=== PATIENT | male | born 1960 | race Caucasian/White ===

== ENCOUNTER 2016-11-02 10:48 | Inpatient (IN) | payer OTHER, MEDICAID ==
[~2016-11-02] VITALS: Ht 180.3 cm; Wt 76.7 kg
[2016-11-02] MEDS ORDERED: VITA250L PO (11:05)
[2016-11-02] MEDS ORDERED: AMLO5CAP2 PO (11:05)
[2016-11-02] MEDS ORDERED: VITA100T2 PO (11:05)
--- NOTE | 2016-11-02 11:18 | REP ---
CHEST, PORTABLE: AP portable view of the chest is performed and compared to prior study of 02/24/2005. There is infiltrate in the left lower lobe. The right lung appears clear. Heart is not enlarged. There is calcification of the thoracic aorta. The mediastinal silhouette is otherwise unremarkable. IMPRESSION: Left lower lobe infiltrate. Signed by Amadeo Lozano MD 11/02/2016 05:12 P
[2016-11-02] MEDS ORDERED: methylPREDNISolone INJ 125 MG/2 ML VIAL (J2930) IV ONE (11:30)
[2016-11-02] MEDS ORDERED: cefTRIAXone SOD 1 GM in D5W MINI-BAG PLUS 50 ML IV ONE (11:30)
[2016-11-02] MEDS ORDERED: AZITHROMYCIN INJ 500 MG, VIAL MATE ADAPTER 1 EACH in D5W 250 ML IV ONE (11:30)
[2016-11-02] MEDS: IPRATROPIUM 0.5MG/ALBUTEROL 2.5MG INH SOL UD 3ML (DUONEB)(J7620) NEB SCH ×3 (11:57→19:34)
[2016-11-02 12:00] LABS: ABG pH (ARTERIAL) 7.458 UNITS (7.350-7.450)
[2016-11-02] MEDS ORDERED: OXAZEPAM 10 MG CAP PO ONE (12:00)
[2016-11-02 12:01] LABS: ABG BASE EXCESS -2.7 (-2.0-2.0); ABG HCO3 20.1 MEQ/L (22.0-26.0); ABG PARTIAL PRESSURE O2 69.9 mmHg (75.0-100.0); ABG STANDARD HCO3 22.1 MEQ/L (22.0-26.0)
[2016-11-02 12:24] LABS: ANION GAP 11 MEQ/L (8-16); BLOOD UREA NITROGEN 28 MG/DL (7-18); CALCIUM LEVEL 8.3 MG/DL (8.5-10.1); CARBON DIOXIDE LEVEL 24 MEQ/L (21-32); CHLORIDE LEVEL 88 MEQ/L (98-107); CREATININE FOR GFR 1.14 MG/DL (0.70-1.30); GLOMERULAR FILTRATION RATE > 60.0 (>56); GLUCOSE, FASTING 81 MG/DL (70-105); SODIUM LEVEL 123 MEQ/L (136-145)
[2016-11-02] MEDS ORDERED: B121000T PO (12:30)
[2016-11-02 12:36] LABS: MEAN CORPUSCULAR HEMOGLOBIN 34.5 pg (27.0-33.0); MEAN CORPUSCULAR HGB CONC 34.7 g/dl (32.0-36.5); MEAN CORPUSCULAR VOLUME 99.3 fl (80.0-96.0); PLATELET COUNT, AUTOMATED 252 k/mm3 (150-450); WHITE BLOOD COUNT 7.6 K/mm3 (4.0-10.0)
[2016-11-02 12:43] LABS: ALBUMIN 2.1 GM/DL (3.2-5.2); ALBUMIN/GLOBULIN RATIO 0.46 (1.00-1.93); BILIRUBIN,DIRECT 0.1 MG/DL (0.0-0.2); BILIRUBIN,TOTAL 0.5 MG/DL (0.2-1.0); TOTAL PROTEIN 6.7 GM/DL (6.4-8.2)
[2016-11-02] MEDS ORDERED: SODIUM CHLORIDE 0.9% 1000 ML IV ONE (13:15)
[2016-11-02 13:18] LABS: ANISOCYTOSIS 1+; BANDS 18 % (< 11); POIKILOCYTOSIS 1+
[2016-11-02] MEDS ORDERED: NS 1,000 ML IV SCH ×2 (13:55→21:00)
[2016-11-02] MEDS ORDERED: ACETAMINOPHEN TAB 650MG DOSE (2X325MG) PO PRN (14:00)
[2016-11-02] MEDS ORDERED: ONDANSETRON 4MG/2ML VIAL (J2405) IV PRN (14:00)
[2016-11-02] MEDS ORDERED: BISACODYL 5 MG TAB PO PRN (14:00)
[2016-11-02] MEDS ORDERED: LORazepam 2 MG/ML VIAL (J2060) IV PRN (14:15)
[2016-11-02] MEDS ORDERED: OXAZEPAM 10 MG CAP PO SCH ×2 (14:15→21:00)
[2016-11-02] MEDS ORDERED: IPRATROPIUM 0.5MG/ALBUTEROL 2.5MG INH SOL UD 3ML (DUONEB)(J7620) NEB PRN (14:30)
[2016-11-02] MEDS ORDERED: MULTIVITAMIN -ADULT INJECTION 10 ML, THIAMINE INJection 100 MG, FOLIC ACID 1 MG in NS 1... IV ONE (15:00)
[2016-11-02] MEDS ORDERED: MAG SULF 1GM/100ML (MAG RUN) 1 GM in APPROPRIATE DILUENT 1 EA IV ONE (16:30)
[2016-11-02 16:43] VITALS: BP 135/70
--- NOTE | 2016-11-02 17:25 | HPE ---
DATE OF ADMISSION: 11/02/2016 PRIMARY CARE PROVIDER: HERNAN Jones CHIEF COMPLAINT: Shortness of breath. HISTORY OF PRESENT ILLNESS: Mr. Martinez is a 56-year-old male with multiple medical history, who presented to the emergency room due to experiencing shortness of breath for the past week. At baseline, the patient has chronic cough with clear sputum production, however, the patient expressed that his cough has increased for the past week with more production of sputum; however, the color of the sputum has not changed. The patient expressed that he felt warm; however, the patient did not take his temperature. The patient had chills and night sweats. The patient denies having sick contacts. The patient has a long history of alcohol abuse and smoking tobacco. The patient also expressed that he has lost his appetite. The patient also expressed that he has had one episode of lightheadedness and dizziness when he stands up from a sitting position; however, the patient denies a history of falls. The patient also denies chest pain, palpitations, racing or skipping heartbeat; however, the patient expressed that he has upper quadrant abdominal pain, secondary to coughing exacerbation. The patient denies seizure type activity or losing of consciousness. At home, the patient is on oxygen or using breathing treatments. ALLERGIES: No known drug allergies. HOME MEDICATIONS: - B12 1000 mcg by mouth in the morning - amlodipine besylate 520 mg one tablet by mouth at night - thiamine HCL 100 mg by mouth at night PAST MEDICAL HISTORY: 1. Essential hypertension. 2. Chronic plaque psoriasis. 3. 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 Initially treated by Dr. Sheets, Dr. Garcia in 2012. The patient has declined physical therapy (PT). 4. Decreased hearing. Has been referred for hearing evaluation, refused. 5. Abnormal liver functions. Liver ultrasound was on 06/20/2014, which was negative. 6. History of tick bite in January 2014, titer negative. SURGICAL HISTORY: 1. Right shoulder repair in 2001. 2. Skin graft and right hand repair in 2001. 3. Colonoscopy by Dr. Torres, three to six polyps of descending colon, repeat in three years and due in 2018. 4. Returned fragments of tubular adenoma on 06/15/2014. FAMILY HISTORY: The patient has three brothers and four sisters. The patient also has two half brothers. The patient does not know about their health; however, the patient expressed that his mother has been diagnosed with hypertension, diabetes mellitus type 2 and alive. The patient's father is still alive and has benign hypertension, diabetes mellitus type 2. SOCIAL HISTORY: The patient is and lives with his and children. The patient has been drinking alcohol for a long time, since his 30s. The patient expressed that he used to drink about a 12-pack per day; however, he has been cut off to a 6-pack per day. The patient smokes about one pack per day since his 20s. Also, the patient has smoked marijuana. According to his son, he used to smoke every day; however, he has been cutting down. The patient has not traveled outside of the [place]. REVIEW OF SYSTEMS: GENERAL: The patient denies taking his temperature; however, the patient felt warm. The patient also had chills and night sweats. The patient denies weight loss or weight gain. HEENT: The patient denies acute vision or hearing changes. The patient has lightheadedness and some dizziness. The patient denies problem with chewing food or sinusitis. NECK: The patient has no decreased range of motion of his neck. HEART: The patient denies chest pain, palpitations, or skipping heartbeat. LUNGS: The patient expressed that he has been experiencing dyspnea. The patient has productive cough with clear sputum at baseline; however, the patient expressed that his cough has been increased for the past week with increased sputum production. ABDOMEN: The patient expressed that he has mild increase of abdominal pain bilaterally upper abdominal quadrants, possibly secondary to cough exacerbation. The patient denies nausea, vomiting, diarrhea or constipation, melena, hematochezia or hemoptysis. NEUROLOGIC: The patient has a history of transient ischemic attack and seizure type activity. PHYSICAL EXAMINATION: VITAL SIGNS: Temperature 99.5, pulse 117, respiratory rate 22, blood pressure 120/60, pulse oximetry 89% on room air. GENERAL APPEARANCE: The patient was lying in bed in no acute distress. The patient was awake, alert and oriented to time, place and person. HEENT: Normocephalic, atraumatic. Pupils are equal and reactive to light. Oral mucosa is moist. NECK: Supple. No lymphadenopathy. No thyromegaly. No jugular venous distention (JVD). HEART: Tachycardia. Normal S1, S2. ABDOMEN: Soft, nontender to palpation. Positive bowel sounds in all quadrants. LUNG: Patient has rales as well as rhonchi bilaterally at the base of the lung. EXTREMITIES: No lower extremity edema. Normal range of motion in both upper and lower extremities, as well as normal strength in both lower extremities (5/5). NEUROLOGIC: Cranial nerves II through XII intact. No focal deficiencies. LABORATORY DATA: White blood cells 7.6, red blood cells 3.38, hemoglobin 9.7, hematocrit 33.6, MCV 99.3, MCH 34.5, MCHC 34.7, RDW 13, platelet count 252. Neutrophil percentage 77, band neutrophils 18, lymphocytes 2, monocytes 3, platelet estimate normal. Blood gas: Bicarbonate standard is 22.1. ABG showed pH 7.458, ABG PCO2 29, ABG PO2 69.9, ABG HDL3 20.1, ABG total CO2 21, ABG oxygen saturation 93.6, ABG base excess -2.7. Sodium 123, potassium 5, chloride 88, carbon dioxide 24 anion gap 11, BUN 28, creatinine 1.14, GFR more than 60, fasting glucose 81, lactic acid 1.8, calcium 8.3, magnesium 1.6, total creatinine 83, CK-MB 1.2, troponin I less than 0.2, BNP 145, total protein 6.7, albumin 2.1. Blood culture pending. IMAGING: Chest x-ray shows left lower lobe infiltration. ASSESSMENT AND PLAN: 1. Dyspnea. This is possibly secondary to community-acquired pneumonia. The patient is started on azithromycin and Rocephin. We have also ordered sputum gram and culture. Due to hyponatremia, I also ordered Legionella antigen in the urine, as well as urine Streptococcus pneumoniae, result is pending at this time. Also, we will continue the patient on oxygen with the goal of 88 to 92% and breathing treatments due to the long history of smoking. At this time, the patient is stable. 2. History of alcohol abuse. The patient has a long history of alcohol abuse. The patient's last drink was last night. At this time, we have started the patient on banana bag. Also, we will continue the patient on folic acid, thiamine, B12. Also, we will start the patient on Ativan 1 mg intravenous every 1 hour as needed for agitation and withdrawal. The patient is also on IV fluid. 3. Hyponatremia. This is possibly hypovolemic hyponatremia secondary to alcohol abuse. The patient is on IV fluid. We will continue the patient on gentle IV fluid. Also, we will continue sodium level every four hours. 4. Tachycardia. This is possibly secondary to dehydration. The patient is on IV fluids. We will continue monitoring the patient's heart rate. No medication is required at this time. 5. Hypertension. At home, the patient is on amlodipine/Benaz 520 mg one tablet by mouth daily. However, at this time, we have held this medication due to hypotension. We will continue to monitor the patient for any abnormal symptoms. 6. Deep vein thrombosis (DVT) prophylaxis. The patient is on Lovenox. 7. Transaminitis. The patient has elevated AST; however, his alkaline phosphatase is in normal range. The patient had the liver ultrasound in 2014, which based on the primary care note was negative. At this time, we will continue monitoring the patient for any abnormal symptoms. 8. Macrocytic anemia: This is possibly secondary to alcohol abuse. At this time patient received one banana bag. Also we'll continue patient on folic acid, thiamine and vitamin B12. My preceptor for this patient encounter was Dr. Todd. The preceptor was physically present in the building during the encounter and was fully available. As needed, all aspects of the patient interview, examination, medical decision making process, and medical care plan development were reviewed and approved by the preceptor. The preceptor is aware and concurs with the plan as stated in the body of this note and will attest to such by his/her cosignature. I have seen and examined the above patient and agree with the plan as documented above. SKIP
[2016-11-02 17:50] LABS: ANION GAP 11 MEQ/L (8-16); BLOOD UREA NITROGEN 26 MG/DL (7-18); CARBON DIOXIDE LEVEL 26 MEQ/L (21-32); CHLORIDE LEVEL 90 MEQ/L (98-107); CREATININE FOR GFR 1.12 MG/DL (0.70-1.30); GLOMERULAR FILTRATION RATE > 60.0 (>56); GLUCOSE, FASTING 166 MG/DL (70-105); POTASSIUM SERUM 4.2 MEQ/L (3.5-5.1); SODIUM LEVEL 127 MEQ/L (136-145)
[2016-11-02] MEDS: ENOXAPARIN 40 MG/0.4 ML SYRINGE (J1650) SC SCH (18:13)
--- NOTE | 2016-11-02 18:17 | ECGEPIP ---
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
[2016-11-02 20:03] LABS: ANION GAP 8 MEQ/L (8-16); BLOOD UREA NITROGEN 27 MG/DL (7-18); CALCIUM LEVEL 8.2 MG/DL (8.5-10.1); CARBON DIOXIDE LEVEL 23 MEQ/L (21-32); CHLORIDE LEVEL 90 MEQ/L (98-107); CREATININE FOR GFR 1.11 MG/DL (0.70-1.30); GLOMERULAR FILTRATION RATE > 60.0 (>56); GLUCOSE, FASTING 238 MG/DL (70-105); POTASSIUM SERUM 4.2 MEQ/L (3.5-5.1); SODIUM LEVEL 121 MEQ/L (136-145)
[2016-11-02] MEDS: methylPREDNISolone INJ 125 MG/2 ML VIAL (J2930) IV SCH (20:34)
[2016-11-02] MEDS ORDERED: THIAMINE 100 MG TAB PO SCH (21:00)
[2016-11-02 22:00] VITALS: BP 142/69
[2016-11-03 00:31] LABS: ANION GAP 10 MEQ/L (8-16); BLOOD UREA NITROGEN 29 MG/DL (7-18); CALCIUM LEVEL 8.2 MG/DL (8.5-10.1); CARBON DIOXIDE LEVEL 26 MEQ/L (21-32); CHLORIDE LEVEL 92 MEQ/L (98-107); CREATININE FOR GFR 1.04 MG/DL (0.70-1.30); GLOMERULAR FILTRATION RATE > 60.0 (>56); GLUCOSE, FASTING 179 MG/DL (70-105); POTASSIUM SERUM 4.6 MEQ/L (3.5-5.1); SODIUM LEVEL 128 MEQ/L (136-145)
[2016-11-03] MEDS: IPRATROPIUM 0.5MG/ALBUTEROL 2.5MG INH SOL UD 3ML (DUONEB)(J7620) NEB SCH ×4 (01:25→20:02)
[2016-11-03] MEDS: methylPREDNISolone INJ 125 MG/2 ML VIAL (J2930) IV SCH ×3 (04:25→20:09)
[2016-11-03 06:00] VITALS: BP 134/76
[2016-11-03 06:29] LABS: BASO % 0.1 % (0.0-1.0); EOS % 0.2 % (0.0-3.0); LARGE UNSTAINED CELL # 0.1 K/mm3 (0.0-0.4); LARGE UNSTAINED CELL % 0.4 % (0.0-4.0); LYMPH # 0.2 K/mm3 (1.5-4.5); LYMPH % 1.8 % (24.0-44.0); MEAN CORPUSCULAR HEMOGLOBIN 34.6 pg (27.0-33.0); MEAN CORPUSCULAR HGB CONC 34.2 g/dl (32.0-36.5); MEAN CORPUSCULAR VOLUME 101.2 fl (80.0-96.0); MONO # 0.1 K/mm3 (0.0-0.8); MONO % 1.2 % (0.0-5.0); NEUTROPHILS # 10.2 K/mm3 (1.8-7.7); NEUTROPHILS % 96.2 % (36.0-66.0); PLATELET COUNT, AUTOMATED 244 k/mm3 (150-450); RED CELL DISTRIBUTION WIDTH 12.9 % (11.5-14.5); WHITE BLOOD COUNT 10.6 K/mm3 (4.0-10.0)
[2016-11-03 06:40] LABS: ALBUMIN 1.8 GM/DL (3.2-5.2); ALBUMIN/GLOBULIN RATIO 0.39 (1.00-1.93); ALKALINE PHOSPHATASE 84 U/L (45-117); ALT/SGPT 37 U/L (12-78); ANION GAP 9 MEQ/L (8-16); AST/SGOT 57 U/L (15-37); BILIRUBIN,TOTAL 0.3 MG/DL (0.2-1.0); BLOOD UREA NITROGEN 29 MG/DL (7-18); CALCIUM LEVEL 8.5 MG/DL (8.5-10.1); CARBON DIOXIDE LEVEL 25 MEQ/L (21-32); CHLORIDE LEVEL 95 MEQ/L (98-107); CREATININE FOR GFR 0.85 MG/DL (0.70-1.30); GLOMERULAR FILTRATION RATE > 60.0 (>56); GLUCOSE, FASTING 126 MG/DL (70-105); MAGNESIUM LEVEL 2.3 MG/DL (1.8-2.4); POTASSIUM SERUM 4.4 MEQ/L (3.5-5.1); SODIUM LEVEL 129 MEQ/L (136-145); TOTAL PROTEIN 6.4 GM/DL (6.4-8.2)
[2016-11-03] MEDS: CYANOCOBALAMIN 500 MCG TAB PO SCH (08:38)
[2016-11-03] MEDS: FOLIC ACID 1 MG TAB PO SCH (08:38)
[2016-11-03] MEDS: AZITHROMYCIN INJ 500 MG, VIAL MATE ADAPTER 1 EACH in D5W 250 ML IV SCH (10:30)
[2016-11-03] MEDS ORDERED: AVEL1TAB PO (11:40)
[2016-11-03] MEDS: cefTRIAXone SOD 2 GM in D5W MINI-BAG PLUS 50 ML IV SCH (11:52)
[2016-11-03] MEDS ORDERED: VANCOMYCIN HCL 1,000 MG in D5W 0 ML IV SCH (13:15)
[2016-11-03 14:00] VITALS: BP 124/69
[2016-11-03] MEDS ORDERED: VANCOMYCIN HCL 500 MG in D5W MINI-BAG PLUS 100 ML IV SCH (14:15)
[2016-11-03] MEDS: VANCOMYCIN HCL 1,000 MG, VIAL MATE ADAPTER 1 EACH in D5W 250 ML IV SCH ×2 (14:21→22:11)
[2016-11-03] MEDS ORDERED: VANCOMYCIN HCL 500 MG in D5W MINI-BAG PLUS 100 ML IV ONE (15:00)
[2016-11-03 15:08] VITALS: BP 130/66
[2016-11-03] MEDS: NS 1,000 ML IV SCH (15:26)
--- NOTE | 2016-11-03 16:24 | IPN ---
DATE: 11/03/2016 Patient seen and examined at the bedside. Chart has been reviewed. He still complains of cough productive of white sputum, some shortness of breath with inhalation, improved from yesterday. No fevers or chills overnight. No nausea, vomiting, epigastric pain, chest pain, pressure, or tightness, lightheadedness, dizziness, near syncope. VITAL SIGNS: Temperature 98.3, pulse 70, respiratory rate 18, blood pressure 134/76, 91% on room air. General: Awake, alert, oriented times three, answering questions appropriately. No jugular venous distention, thyromegaly. Anicteric sclerae. Pupils equally round and reactive to light and accommodation. No icterus. No use of respiratory accessory muscles. Lying in bed in no acute distress, awake, alert, oriented times three to person, place, and time. Neck has no jugular venous distention. Heart: S1, S2, sinus rhythm. No murmurs, rubs, or gallops. Lungs: Diminished breath sounds with coarse wheezing bilaterally. Abdomen is Soft, nontender, nondistended. Positive bowel sounds. Extremities: No cyanosis, clubbing, or pitting edema. LABORATORY DATA: White count 10.3, hemoglobin 11, hematocrit 33, platelet count 244. Sodium 129, potassium 4.4, chloride 95, bicarbonate 25, BUN 29, creatinine 0.85, glucose of 126. Chest x-ray on November 02: Left lower lobe infiltrate. ASSESSMENT AND PLAN: This is a 56-year-old male with history of hypertension, chronic plaque psoriasis, posttraumatic muscle contractions following injury involving the right-hand finger and wrist, treated by Dr. Sheets, decreased hearing, referred for hearing evaluation, refused, abnormal liver function tests with liver ultrasound 06/20/2014 negative, history of tick bite January 2014, titer negative, colonic polyps of descending colon with tubular adenoma. He presented to the emergency room with complaints of shortness of breath, found to have left lower lobe infiltrate, admitted to community acquired pneumonia. Current issues right now: 1. Left lower lobe pneumonia. Patient currently is on intravenous (IV) ceftriaxone, azithromycin. He is currently saturating 91-92% on room air, 96% on 2 liters nasal cannula. He was previously 89% on room air with ambulation on admission. Patient's white count was normal at 7.6, currently increased to 10.6 but clinically doing well. Has no respiratory distress or use of respiratory accessory muscles. He did receive one dose of Solu-Medrol yesterday, held to 25 mg, which could explain slight elevation in the white count. 2. History of essential hypertension, on chronic Norvasc. Continue the same. 3. Chronic plaque psoriasis, stable. 4. B12 deficiency Continue B12 at 1 mg every morning. 5. Abnormal liver function tests with normal liver ultrasound. 6. History of colonic polyps three years ago with tubular adenoma in 2015. Repeat colonoscopy in 2018. 7. History of heavy alcohol abuse. Last drink was last night. Monitor for delirium tremens (DTs) and folic acid, B12, and thiamine. Ativan as needed for agitation and withdrawal. 8. Hyponatremia, hypovolemic hyponatremic, most likely secondary to alcohol abuse. Gentle hydration with improvement, 129, with no mental status changes, headaches, or seizure activity. Discharge plans are for the morning.
--- NOTE | 2016-11-03 17:11 | PHACANCOPD ---
PHARMACY VANCOMYCIN DOSING Pt Demographics Demographics Patient Age:56 , Weight:74.600 , Gender: male Adjusted Body Weight Date: 11/03/16, Adjusted Body Weight: Kg Events Past 24 Hours Events Past 24 Hours: NO: Dialysis, Diuretic Therapy, Change in CrCl, Fever, Elevation in WBC, Pending Diagnostics, Pending Procedures, Other Vancomycin Vancomycin indication: SEPSIS Vancomycin Target Ranges: 15-20 mcg/ml Vancomycin Load Y/N: Yes Load Dose Date Time Vancomycin Load Dose: 1500MG Date: 11/03 Time: 1400 Vancomycin Dose Date: 11/03/16. Current Vancomycin Dose: [1000MG IV Q8H @ 2200] Intermittent Dosing?: No Labs Labs Item Value Date Time Creatinine 1.11 MG/DL 11/02/16 1933 Creatinine 1.04 MG/DL 11/02/16 2343 Creatinine 0.85 MG/DL 11/03/16 0558 White Blood Count 7.6 K/mm3 11/02/16 1136 White Blood Count 10.6 K/mm3 H 11/03/16 0558 Micro Microbiology 11/03/16 Blood Culture, Received Pending 11/03/16 Blood Culture, Received Pending 11/02/16 Blood Culture - Preliminary, Resulted 11/02/16 Blood Culture - Preliminary, Resulted 11/03/16 MRSA Screen, Received Pending 11/02/16 Influenza Virus Type A Antigen - Final, Complete 11/02/16 Influenza Virus Type B Antigen - Final, Complete 11/02/16 Gram Stain - Final, Resulted 11/02/16 Sputum Culture, Resulted Pending Creatinine Clearance Date:11/03/16. Creatinine Clearance: [100MLS/MIN]. Pending Labs VANCO TROUGH 11/04 @ 1300 Assessment and Plan Maintaining Current Dose?: Yes Reason for dose change: No Dose Change Pharmacist Note Pharmacist Note Date: 11/03/16. Pharmacist note: Vancomycin 1500mg loading dose was started @ 1400 followed by 1 gram 8h. Trough is scheduled to be drawn prior to the 4th dose (11/04 @ 1300). Blood cultures are currently pending. Continue current dosing and adjust per renal function. AKIN MULLEN PHARMACY Nov 03, 2016 17:11
[2016-11-03] MEDS: ENOXAPARIN 40 MG/0.4 ML SYRINGE (J1650) SC SCH (17:53)
[2016-11-03] MEDS: THIAMINE 100 MG TAB PO SCH (20:08)
[2016-11-03 22:00] VITALS: BP 157/74
[2016-11-04] MEDS: IPRATROPIUM 0.5MG/ALBUTEROL 2.5MG INH SOL UD 3ML (DUONEB)(J7620) NEB SCH ×4 (01:54→20:03)
[2016-11-04] MEDS: NS 1,000 ML IV SCH ×3 (04:15→20:12)
[2016-11-04] MEDS: methylPREDNISolone INJ 125 MG/2 ML VIAL (J2930) IV SCH ×3 (04:15→20:12)
[2016-11-04] MEDS: VANCOMYCIN HCL 1,000 MG, VIAL MATE ADAPTER 1 EACH in D5W 250 ML IV SCH ×3 (05:39→22:21)
[2016-11-04 06:00] VITALS: BP 157/66
[2016-11-04 06:44] LABS: BASO % 0.1 % (0.0-1.0); EOS % 0.3 % (0.0-3.0); LARGE UNSTAINED CELL # 0.1 K/mm3 (0.0-0.4); LARGE UNSTAINED CELL % 0.6 % (0.0-4.0); LYMPH # 0.3 K/mm3 (1.5-4.5); LYMPH % 1.9 % (24.0-44.0); MEAN CORPUSCULAR HGB CONC 33.1 g/dl (32.0-36.5); MEAN CORPUSCULAR VOLUME 102.7 fl (80.0-96.0); MONO # 0.3 K/mm3 (0.0-0.8); MONO % 2.2 % (0.0-5.0); NEUTROPHILS # 10.9 K/mm3 (1.8-7.7); PLATELET COUNT, AUTOMATED 278 k/mm3 (150-450); RED CELL DISTRIBUTION WIDTH 13.3 % (11.5-14.5); WHITE BLOOD COUNT 11.4 K/mm3 (4.0-10.0)
[2016-11-04 07:08] LABS: ALBUMIN 1.7 GM/DL (3.2-5.2); ALBUMIN/GLOBULIN RATIO 0.36 (1.00-1.93); ALKALINE PHOSPHATASE 96 U/L (45-117); ALT/SGPT 38 U/L (12-78); ANION GAP 7 MEQ/L (8-16); AST/SGOT 50 U/L (15-37); BILIRUBIN,TOTAL 0.2 MG/DL (0.2-1.0); BLOOD UREA NITROGEN 32 MG/DL (7-18); CALCIUM LEVEL 8.5 MG/DL (8.5-10.1); CARBON DIOXIDE LEVEL 24 MEQ/L (21-32); CHLORIDE LEVEL 95 MEQ/L (98-107); CREATININE FOR GFR 0.75 MG/DL (0.70-1.30); GLOMERULAR FILTRATION RATE > 60.0 (>56); GLUCOSE, FASTING 147 MG/DL (70-105); MAGNESIUM LEVEL 2.2 MG/DL (1.8-2.4); SODIUM LEVEL 126 MEQ/L (136-145); TOTAL PROTEIN 6.4 GM/DL (6.4-8.2)
[2016-11-04] MEDS: FOLIC ACID 1 MG TAB PO SCH (09:09)
[2016-11-04] MEDS: CYANOCOBALAMIN 500 MCG TAB PO SCH (09:09)
[2016-11-04] MEDS: AZITHROMYCIN INJ 500 MG, VIAL MATE ADAPTER 1 EACH in D5W 250 ML IV SCH (11:15)
[2016-11-04] MEDS: cefTRIAXone SOD 2 GM in D5W MINI-BAG PLUS 50 ML IV SCH (11:16)
--- NOTE | 2016-11-04 14:11 | PHACANCOPD ---
PHARMACY VANCOMYCIN DOSING Pt Demographics Demographics Patient Age:56 , Weight:74.400 , Gender: male Adjusted Body Weight Date: 11/03/16, Adjusted Body Weight: Kg Events Past 24 Hours Events Past 24 Hours: NO: Dialysis, Diuretic Therapy, Change in CrCl, Fever, Elevation in WBC, Pending Diagnostics, Pending Procedures, Other Vancomycin Vancomycin indication: SEPSIS Vancomycin Target Ranges: 15-20 mcg/ml Vancomycin Load Y/N: Yes Load Dose Date Time Vancomycin Load Dose: 1500MG Date: 11/03 Time: 1400 Vancomycin Dose Date: 11/04/16. Current Vancomycin Dose: [1000mg IV q8h@14] Date: 11/03/16. Current Vancomycin Dose: [1000MG IV Q8H @ 2200] Intermittent Dosing?: No Labs Labs Item Value Date Time White Blood Count 10.6 K/mm3 H 11/03/16 0558 White Blood Count 11.4 K/mm3 H 11/04/16 0556 Creatinine 0.75 MG/DL 11/04/16 0556 Vancomycin Level Trough 15.1 UG/ML 11/04/16 1305 Vital Signs Label Value Date Time Patient Temperature 98.7 degrees F 11/03/16 2200 Temperature Source Temporal 11/03/16 2200 Patient Temperature 98.0 degrees F 11/04/16 0600 Temperature Source Temporal 11/04/16 0600 Micro Microbiology 11/03/16 Blood Culture - Preliminary, Resulted No growth after 24 hours . All specim... 11/03/16 Blood Culture - Preliminary, Resulted No growth after 24 hours . All specim... 11/02/16 Blood Culture - Preliminary, Resulted 11/02/16 Blood Culture - Preliminary, Resulted 11/03/16 MRSA Screen, Received Pending 11/02/16 Influenza Virus Type A Antigen - Final, Complete 11/02/16 Influenza Virus Type B Antigen - Final, Complete 11/02/16 Gram Stain - Final, Resulted 11/02/16 Sputum Culture - Preliminary, Resulted Streptococcus Pneumoniae Yeast Like Organism Creatinine Clearance Date:11/03/16. Creatinine Clearance: [100MLS/MIN]. Pending Labs VANCO TROUGH 11/04 @ 1300 Assessment and Plan Maintaining Current Dose?: Yes Reason for dose change: No Dose Change Pharmacist Note Pharmacist Note 11/04: Patient's trough came back at 15.1 today. He is currently being treated for Pneumonia. Currently he has 2 sets of blood cultures showing preliminary gram positive cocci in pairs and sputum preliminary grew strep. pneumoniae and yeast like organism. The physician has ordered a second set of blood cultures and a MRSA screen. His trough is within target range so we will continue Vancomycin 1gm IV q8h for now. He has no history of MRSA or Vancomycin use at our facility. He is afebrile and WBC is slightly elevated. We will continue to monitor and make adjustments as necessary. Date: 11/03/16. Pharmacist note: Vancomycin 1500mg loading dose was started @ 1400 followed by 1 gram 8h. Trough is scheduled to be drawn prior to the 4th dose (11/04 @ 1300). Blood cultures are currently pending. Continue current dosing and adjust per renal function. GILMA SPARKS PHARMACY Nov 04, 2016 14:11
[2016-11-04] MEDS: ENOXAPARIN 40 MG/0.4 ML SYRINGE (J1650) SC SCH (17:41)
[2016-11-04] MEDS: THIAMINE 100 MG TAB PO SCH (20:11)
[2016-11-04 22:00] VITALS: BP 156/73
[2016-11-05] MEDS: IPRATROPIUM 0.5MG/ALBUTEROL 2.5MG INH SOL UD 3ML (DUONEB)(J7620) NEB SCH ×2 (01:36→07:51)
[2016-11-05] MEDS: methylPREDNISolone INJ 125 MG/2 ML VIAL (J2930) IV SCH (04:14)
[2016-11-05] MEDS: VANCOMYCIN HCL 1,000 MG, VIAL MATE ADAPTER 1 EACH in D5W 250 ML IV SCH (05:34)
[2016-11-05 06:00] VITALS: BP 153/74
[2016-11-05 06:40] LABS: BASO % 0.4 % (0.0-1.0); EOS % 0.1 % (0.0-3.0); LARGE UNSTAINED CELL # 0.1 K/mm3 (0.0-0.4); LARGE UNSTAINED CELL % 1.5 % (0.0-4.0); LYMPH # 0.3 K/mm3 (1.5-4.5); LYMPH % 4.1 % (24.0-44.0); MEAN CORPUSCULAR HEMOGLOBIN 34.2 pg (27.0-33.0); MEAN CORPUSCULAR HGB CONC 34.1 g/dl (32.0-36.5); MEAN CORPUSCULAR VOLUME 100.3 fl (80.0-96.0); MONO # 0.2 K/mm3 (0.0-0.8); MONO % 3.4 % (0.0-5.0); NEUTROPHILS # 6.2 K/mm3 (1.8-7.7); NEUTROPHILS % 90.4 % (36.0-66.0); PLATELET COUNT, AUTOMATED 292 k/mm3 (150-450); RED CELL DISTRIBUTION WIDTH 13.3 % (11.5-14.5); WHITE BLOOD COUNT 6.9 K/mm3 (4.0-10.0)
[2016-11-05 06:55] LABS: ALBUMIN 1.7 GM/DL (3.2-5.2); ALBUMIN/GLOBULIN RATIO 0.44 (1.00-1.93); ALKALINE PHOSPHATASE 69 U/L (45-117); ALT/SGPT 50 U/L (12-78); ANION GAP 7 MEQ/L (8-16); AST/SGOT 51 U/L (15-37); BILIRUBIN,TOTAL 0.2 MG/DL (0.2-1.0); BLOOD UREA NITROGEN 22 MG/DL (7-18); CALCIUM LEVEL 8.2 MG/DL (8.5-10.1); CARBON DIOXIDE LEVEL 25 MEQ/L (21-32); CHLORIDE LEVEL 97 MEQ/L (98-107); CREATININE FOR GFR 0.71 MG/DL (0.70-1.30); GLOMERULAR FILTRATION RATE > 60.0 (>56); GLUCOSE, FASTING 138 MG/DL (70-105); MAGNESIUM LEVEL 2.1 MG/DL (1.8-2.4); POTASSIUM SERUM 4.1 MEQ/L (3.5-5.1); SODIUM LEVEL 129 MEQ/L (136-145); TOTAL PROTEIN 5.6 GM/DL (6.4-8.2)
[2016-11-05] MEDS ORDERED: MOXIFLOXACIN 400 MG TAB PO ONE (07:00)
[2016-11-05] MEDS ORDERED: AVEL1TAB PO (07:01)
[2016-11-05] MEDS: NS 1,000 ML IV SCH (07:30)
[2016-11-05] MEDS ORDERED: FUROSEMIDE 100 MG/10 ML VIAL (J1940) IV ONE (08:15)
[2016-11-05] MEDS: CYANOCOBALAMIN 500 MCG TAB PO SCH (08:50)
[2016-11-05] MEDS: FOLIC ACID 1 MG TAB PO SCH (08:50)
--- NOTE | 2016-11-05 14:14 | IPN ---
DATE: 11/04/2016 Patient seen and examined at the bedside. Chart has been reviewed. Afebrile overnight. Patient was given vancomycin due to gram positive cocci found in the blood culture. Sputum culture is streptococcus pneumonia. Patient admits to having snorted recreational drugs about a week ago. Temperature 98, pulse 68, respiratory rate 19, blood pressure 157/66, 94% on room air. Lungs are clear to auscultation. No wheezing, rales or rhonchi. Some diminished breath sounds and crackles at the left base. Heart S1 and S2, sinus rhythm. Abdomen is soft, nontender, nondistended. Normoactive bowel sounds. Extremities no cyanosis, clubbing or pitting edema. ASSESSMENT/PLAN: This is a 56-year-old male with history of recreational drug use by inhaling recreational drugs about a week ago, chronic plaque psoriasis, hypertension, post traumatic muscle contractions, abnormal liver function tests, history of tick bite, history of colonic tubular adenoma who presented with shortness of breath admitted for community acquired pneumonia and left lower lobe infiltrate. CURRENT ISSUES: 1. Left lower lobe pneumonia with streptococcus pneumonia, yeast like organism, sputum culture, currently on ceftriaxone. Azithromycin until finalized. 2. Gram positive blood bacteremia. Rule out endocarditis especially with recreational drug use which was inhaled last week. Will obtain 2D echo. If negative, continue treatment with vancomycin until species has been defined. 3. Chronic plaque psoriasis, stable. 4. B12 deficiency. 5. Abnormal liver function tests. Normal ultrasound. 6. Colonic polyps. 7. Tubular adenoma. Repeat colonoscopy 2018. 8. History of alcohol abuse. Last drink two nights ago. 9. Hyponatremia secondary to alcohol use. Gentle hydration. No mental status changes. Currently at 126.
[2016-11-06 00:07] LABS: ORGANISM ID Not indicated. (.); SPECIMEN SOURCE Urine (.)
[2016-11-06] MEDS ORDERED: MOXIFLOXACIN 400 MG TAB PO SCH (06:00)
--- NOTE | 2016-11-06 10:16 | DSES ---
DATE OF ADMISSION: 11/02/2016 DATE OF DISCHARGE: 11/05/2016 PRIMARY CARE PROVIDER: Gerri Estrella. PRIMARY DISCHARGE DIAGNOSES: 1. Left lower lobe community-acquired pneumonia. 2. Recent recreational drug use via inhalation. 3. Streptococcus pneumoniae. 4. Bacteremia, mostly likely secondary to pneumonia. 5. Hyponatremia most likely secondary to chronic alcohol abuse. 6. Chronic alcohol abuse. DISCHARGE MEDICATIONS: - Avelox 400 mg daily to complete nine more days as outpatient - Norvasc one capsule every evening - B12 1000 mcg every evening - thiamine 100 mg every evening HOSPITAL COURSE: This is a 56-year-old male with history of chronic alcohol abuse, hypertension, chronic plaque psoriasis, post-traumatic muscle contractions following injury of right hand, finger and wrist, decreased hearing, normal liver function test with liver ultrasound being negative in 2014, history of tick bite 2013, titer negative, colonic polyps descending colon with tubular adenoma, who presented to the emergency room with complaints of shortness of breath. Was found to have left lower lobe infiltrate on chest x-ray, admitted for community-acquired. Was started on ceftriaxone and azithromycin, was previously 89% on room air with ambulation on admission, saturating 91-96% on room air. The patient was given intravenous (IV) Solu-Medrol with slight elevation in white count. Blood cultures obtained showed gram-positive cocci; therefore, the patient was given two days of vancomycin until cultures returned with Streptococcus pneumoniae. Both sputum and blood culture grew out Streptococcus pneumoniae. Therefore, thought to be transient bacteremia from the patient's pneumonia. Repeat blood cultures on 11/03 showed no growth after 24 hours. Methicillin-resistant Staphylococcus aureus (MRSA) screen was negative. Echocardiogram ordered but could not be performed prior to discharge. The patient is stable for discharge. He remained afebrile with no white count. Discharge WBC of 6.9. He did have episode of hyponatremia with admission sodium of 123, thought to be secondary to chronic alcohol abuse, with discharge sodium level of 129 after fluid hydration. Input and output showed a weight gain from 71 kg to 76.7 kg. The patient was given one dose of Lasix prior to discharge. LABORATORIES ON DISCHARGE: White count 6.9, hemoglobin 10, hematocrit 30, platelet count 292. Sodium 129, potassium 4, chloride 97, bicarbonate 7, BUN 22, creatinine 0.71, glucose 138, lactic acid of 1.9, calcium 8.2, magnesium of 2.1. MICROBIOLOGY: Blood cultures Streptococcus pneumoniae 11/02/2016. Repeat blood culture on 11/03 no growth after 24 hours. 11/02 sputum culture was Streptococcus pneumoniae, streptococcus group G and yeastlike organism. IMAGING: Chest x-ray showed left lower lobe infiltrate. TIME SPENT ON DISCHARGE: 40 minutes.
== END 2016-11-05 11:23 | disposition home or self-care (01) | DRG 194 ==
LOC: EDBD 10:48 → M ED 11:58 → M ED INP 15:30 → M MSPAV 16:24
PROVIDERS: ADMIT Hospitalist; ATTEND General Practice
DX: J13 Pneumonia due to Streptococcus pneumoniae (principal); E87.1 Hypo-osmolality and hyponatremia; R78.81 Bacteremia; I10 Essential (primary) hypertension; L40.0 Psoriasis vulgaris; H49.9 Unspecified paralytic strabismus; H91.90 Unspecified hearing loss, unspecified ear; F17.210 Nicotine dependence, cigarettes, uncomplicated; F10.10 Alcohol abuse, uncomplicated; E86.0 Dehydration; R00.0 Tachycardia, unspecified; R74.0 Nonspecific elevation of levels of transaminase and lactic acid dehydrogenase [LDH]; D53.9 Nutritional anemia, unspecified; Z79.899 Other long term (current) drug therapy; Z86.010 Personal history of colon polyps

== ENCOUNTER → 2016-11-23 | Outpatient (CLI) | payer OTHER, MEDICAID ==
[~2016-11-23] MED LIST: AMLO5CAP2 PO; AVEL1TAB3 PO; B121000T PO; VITA100T2 PO; VITA250L PO
--- NOTE | 2016-11-23 11:52 | REP ---
Clinical: Follow up pneumonia. Technique: PA and lateral. Comparison: 11/02/2016. Findings: Continued left lower lobe consolidation/partial collapse with moderate pleural effusion. Right hemithorax is clear. Mediastinum and cardiac silhouette normal. No pneumothorax. Skeletal structures stable. Impression: Continued evidence for left lower lobe consolidation/partial collapse and pleural effusion. Signed by Олег Cardoza MD 11/23/2016 11:44 A
--- NOTE | 2016-11-23 19:51 | ECHO ---
DATE OF PROCEDURE: 11/23/2016 AGE: 56 GENDER: Male HEIGHT: 70 inches WEIGHT: 153 pounds BODY SURFACE AREA: 1.86 m2. PATIENT LOCATION: Outpatient. REFERRING PHYSICIAN: Gerri Estrella NP INDICATION: Essential hypertension. 2D MEASUREMENTS RV: 3.8 cm LV: 4.0 cm Septum: 0.9 cm Posterior wall: 0.9 cm Aortic root: 3.3 cm LA: 3.0 cm LVEF: 75% DOPPLER MEASUREMENTS: AV: 1.5 m/s LVOT: 0/9 m/s LVOT diameter: 2.2 cm MV-E: 75, A: 74, EA ratio: 1 Early mitral deceleration time: 246 ms E prime: 8.8, A prime: 13, E/E prime ratio: 8.5 PV: 0.8 m/s PA acceleration time: 130 ms RVSP: 28 mmHg IVC: 1.2 cm COMMENTS: Normal sinus rhythm without intraventricular conduction disturbance. Normal cardiac chamber sizes and wall thickness. On real-time imaging from the parasternal and apical projections wall motion was symmetrical and hyperkinetic. Normal-appearing mitral valvular apparatus and leaflet excursion with no posterior systolic buckling. Three equal size aortic cusps with marginally thickened cusp edges, but adequate cusp separation. Normal aortic root size. Somewhat prominent moderator band in the right ventricle, but otherwise no intracardiac mass or pericardial effusion. Color flow Doppler study taken from the parasternal and apical projection showed trace aortic and trace tricuspid, but normal mitral insufficiency. Guided continuous wave Doppler of his aortic valve showed a normal peak systolic velocity against left ventricle (LV) outflow tract obstruction. Pulsed and continuous wave Doppler of his LV inflow tract taken from the apical four-chamber projection showed normal diastolic filling velocities against mitral stenosis. There was a normal filling pattern, but a prolonged early mitral deceleration time and tissue Doppler suggesting a degree of impaired LV diastolic function, but currently normal estimated mean left atrial pressure. Pulsed and continuous wave Doppler of his pulmonary trunk showed a normal peak systolic velocity against right ventricle (RV) outflow tract obstruction. His pulmonary artery acceleration time was normal against an elevated pulmonary vascular resistance. Guided continuous wave Doppler of his tricuspid valve allowed our estimation of his right ventricular systolic pressure (upper limits of normal). Normal inferior vena cava (IVC) size and collapse against an elevated central venous pressure. CONCLUSIONS: Normal left ventricular size, wall thickness and hyperkinetic wall motion. Normal left atrial size with Doppler signs of an impairment of LV diastolic relaxation but currently normal estimated mean left atrial pressure. Normal right heart chamber sizes and contraction with normal estimated pulmonary arterial pressure. Normal IVC size and collapse against an elevated central venous pressure. Subtle aortic valvular sclerosis without stenosis and only trace insufficiency. Normal aortic root size.
== END ==
LOC: M CARPUL 11:29
PROVIDERS: ATTEND Nurse Practitioner Adult Health
DX: I10 Essential (primary) hypertension (principal)

== ENCOUNTER → 2016-12-15 | Outpatient (CLI) | payer OTHER, MEDICAID ==
[~2016-12-15] MED LIST changes: +ISOVUE-370 76% 100ML VIAL (Q9967) As Ordered ONE
--- NOTE | 2016-12-16 03:08 | REP ---
Clinical: Streptococcal pneumonia. Technique: Axial contrast enhanced images from the thoracic inlet to the upper abdomen using 100 ml Isovue 370 intravenous contrast material with coronal and sagittal re-formations. Findings: Moderate left lower lobe consolidation with air bronchograms and associated moderate pleural effusion is consistent with the given history of streptococcal pneumonia. Small focus of infiltrate/chronic change also identified in the basilar right middle lobe. Remainder of the lung thurston are well-aerated and clear. Tracheobronchial tree is patent. No significant adenopathy. Mediastinum demonstrates mild atherosclerotic changes to the thoracic aorta and coronary arteries guide aortic aneurysm or cardiomegaly. No pericardial effusion. Musculoskeletal structures are intact. Limited evaluation of the upper abdomen demonstrates normal bilateral adrenal glands and subcentimeter left renal cyst. Impression: Left lower lobe consolidation and pleural effusion along with possible small acute/chronic right middle lobe infiltrate requires followup to resolution. Signed by Олег Cardoza MD 12/16/2016 02:59 A
== END ==
LOC: M RAD 16:26
PROVIDERS: ATTEND Nurse Practitioner Adult Health
DX: J15.4 Pneumonia due to other streptococci (principal); J90 Pleural effusion, not elsewhere classified; J98.4 Other disorders of lung
CPT/HCPCS: 71260; Q9967

== ENCOUNTER → 2017-02-03 | Outpatient (REF) | payer OTHER, MEDICAID ==
[~2017-02-03] MED LIST changes: -ISOVUE-370 76% 100ML VIAL (Q9967) As Ordered ONE
[2017-02-03 16:14] LABS: VITAMIN B12 LEVEL 458 PG/ML (247-911)
[2017-02-03 16:15] LABS: ALBUMIN 3.8 GM/DL (3.2-5.2); ALKALINE PHOSPHATASE 77 U/L (45-117); ALT/SGPT 30 U/L (12-78); ANION GAP 6 MEQ/L (8-16); AST/SGOT 46 U/L (15-37); BILIRUBIN,TOTAL 0.5 MG/DL (0.2-1.0); BLOOD UREA NITROGEN 10 MG/DL (7-18); CALCIUM LEVEL 9.1 MG/DL (8.5-10.1); CARBON DIOXIDE LEVEL 31 MEQ/L (21-32); CHLORIDE LEVEL 97 MEQ/L (98-107); CHOLESTEROL LEVEL 193 MG/DL (<200); CREATININE FOR GFR 0.77 MG/DL (0.70-1.30); GLOMERULAR FILTRATION RATE > 60.0 (>56); GLUCOSE, FASTING 87 MG/DL (70-105); POTASSIUM SERUM 4.6 MEQ/L (3.5-5.1); SODIUM LEVEL 134 MEQ/L (136-145); TRIGLYCERIDES LEVEL 41 MG/DL (<150)
[2017-02-03 18:57] LABS: MEAN CORPUSCULAR HEMOGLOBIN 34.4 pg (27.0-33.0); MEAN CORPUSCULAR HGB CONC 33.9 g/dl (32.0-36.5); MEAN CORPUSCULAR VOLUME 101.5 fl (80.0-96.0); RED CELL DISTRIBUTION WIDTH 14.4 % (11.5-14.5); WHITE BLOOD COUNT 4.4 K/mm3 (4.0-10.0)
== END ==
LOC: M SFHCPLAZ 14:05
PROVIDERS: ATTEND Nurse Practitioner Adult Health
DX: Z00.00 Encounter for general adult medical examination without abnormal findings (principal); D64.9 Anemia, unspecified; E87.1 Hypo-osmolality and hyponatremia

== ENCOUNTER 2017-08-05 06:44 | Day surgery (SDC) | payer OTHER, MEDICAID ==
[2017-08-05] MEDS ORDERED: LIDOCAINE 2% INJ 100 MG/5 ML SYRINGE As Ordered (07:02)
[2017-08-05] MEDS ORDERED: PROPOFOL 200 MG/20 ML VIAL As Ordered ×2 (07:02→07:42)
[2017-08-05] MEDS: NS 500 ML IV (07:07)
== END 2017-08-05 08:28 | disposition home or self-care (01) ==
LOC: M OPP 06:44
DX: Z12.11 Encounter for screening for malignant neoplasm of colon (principal); N40.0 Benign prostatic hyperplasia without lower urinary tract symptoms; I10 Essential (primary) hypertension; J44.9 Chronic obstructive pulmonary disease, unspecified; G47.30 Sleep apnea, unspecified; F17.210 Nicotine dependence, cigarettes, uncomplicated; M19.90 Unspecified osteoarthritis, unspecified site; Z79.899 Other long term (current) drug therapy; Z86.010 Personal history of colon polyps; Z98.890 Other specified postprocedural states
CPT/HCPCS: 45378

== ENCOUNTER → 2018-02-17 | Outpatient (REF) | payer OTHER, MEDICAID ==
[2018-02-17 18:01] LABS: HEMATOCRIT 37.3 % (42.0-52.0); HEMOGLOBIN 13.2 g/dl (13.5-17.5); MEAN CORPUSCULAR HEMOGLOBIN 34.3 pg (27.0-33.0); MEAN CORPUSCULAR HGB CONC 35.4 g/dl (32.0-36.5); MEAN CORPUSCULAR VOLUME 96.9 fl (80.0-96.0); PLATELET COUNT, AUTOMATED 162 10^3/uL (150-450); RED BLOOD COUNT 3.85 10^6/uL (4.30-6.10); RED CELL DISTRIBUTION WIDTH 13.1 % (11.5-14.5); WHITE BLOOD COUNT 2.4 10^3/uL (4.0-10.0)
[2018-02-17 18:32] LABS: ALBUMIN 3.6 GM/DL (3.2-5.2); ALBUMIN/GLOBULIN RATIO 0.88 (1.00-1.93); ALKALINE PHOSPHATASE 94 U/L (45-117); ALT/SGPT 46 U/L (12-78); ANION GAP 11 MEQ/L (8-16); AST/SGOT 95 U/L (7-37); BILIRUBIN,TOTAL 0.3 MG/DL (0.2-1.0); BLOOD UREA NITROGEN 6 MG/DL (7-18); CALCIUM LEVEL 8.8 MG/DL (8.5-10.1); CARBON DIOXIDE LEVEL 23 MEQ/L (21-32); CHLORIDE LEVEL 104 MEQ/L (98-107); CREATININE FOR GFR 0.62 MG/DL (0.70-1.30); GLOMERULAR FILTRATION RATE > 60.0 (>56); GLUCOSE, FASTING 69 MG/DL (70-100); POTASSIUM SERUM 3.9 MEQ/L (3.5-5.1); SODIUM LEVEL 138 MEQ/L (136-145); TOTAL PROTEIN 7.7 GM/DL (6.4-8.2)
== END ==
LOC: M SFHCPLAZ 16:12
DX: Z00.00 Encounter for general adult medical examination without abnormal findings (principal); D64.9 Anemia, unspecified

== ENCOUNTER → 2019-02-21 | Outpatient (REF) | payer OTHER, MEDICAID ==
[~2019-02-21] MED LIST changes: -AMLO5CAP2 PO; +AMLO5CAP44 PO; -VITA100T2 PO; +VITA100T8 PO
[2019-02-21 14:10] LABS: ALBUMIN 3.3 GM/DL (3.2-5.2); ALT/SGPT 31 U/L (12-78); BILIRUBIN,TOTAL 0.3 MG/DL (0.2-1.0); BLOOD UREA NITROGEN 7 MG/DL (7-18); CALCIUM LEVEL 8.8 MG/DL (8.8-10.2); CARBON DIOXIDE LEVEL 29 MEQ/L (21-32); CHLORIDE LEVEL 97 MEQ/L (98-107); CREATININE FOR GFR 0.77 MG/DL (0.70-1.30); GLOMERULAR FILTRATION RATE > 60.0 (>49); GLUCOSE, FASTING 78 MG/DL (70-100); POTASSIUM SERUM 3.7 MEQ/L (3.5-5.1); SODIUM LEVEL 134 MEQ/L (136-145); TOTAL PROTEIN 7.3 GM/DL (6.4-8.2)
[2019-02-21 14:13] LABS: HEMATOCRIT 36.2 % (42.0-52.0); HEMOGLOBIN 12.5 g/dl (13.5-17.5); MEAN CORPUSCULAR HEMOGLOBIN 33.9 pg (27.0-33.0); MEAN CORPUSCULAR HGB CONC 34.5 g/dl (32.0-36.5); MEAN CORPUSCULAR VOLUME 98.1 fl (80.0-96.0); PLATELET COUNT, AUTOMATED 189 10^3/uL (150-450); RED BLOOD COUNT 3.69 10^6/uL (4.30-6.10); WHITE BLOOD COUNT 2.4 10^3/uL (4.0-10.0)
== END ==
LOC: M SFHCPLAZ 11:37
PROVIDERS: ATTEND Nurse Practitioner Adult Health
DX: Z00.00 Encounter for general adult medical examination without abnormal findings (principal); E87.1 Hypo-osmolality and hyponatremia; R74.8 Abnormal levels of other serum enzymes; D64.9 Anemia, unspecified

== ENCOUNTER → 2019-09-22 | Outpatient (CLI) | payer OTHER, MEDICAID ==
[2019-09-22 16:16] LABS: HEMATOCRIT 36.7 % (42.0-52.0); HEMOGLOBIN 12.3 g/dl (13.5-17.5); MEAN CORPUSCULAR HEMOGLOBIN 33.3 pg (27.0-33.0); MEAN CORPUSCULAR HGB CONC 33.5 g/dl (32.0-36.5); MEAN CORPUSCULAR VOLUME 99.5 fl (80.0-96.0); PLATELET COUNT, AUTOMATED 263 10^3/uL (150-450); RED BLOOD COUNT 3.69 10^6/uL (4.30-6.10); WHITE BLOOD COUNT 3.4 10^3/uL (4.0-10.0)
[2019-09-22 16:25] LABS: ALBUMIN 3.2 GM/DL (3.2-5.2); ALT/SGPT 28 U/L (12-78); BILIRUBIN,TOTAL 0.5 MG/DL (0.2-1.0); BLOOD UREA NITROGEN 10 MG/DL (7-18); CALCIUM LEVEL 9.3 MG/DL (8.8-10.2); CARBON DIOXIDE LEVEL 30 MEQ/L (21-32); CHLORIDE LEVEL 97 MEQ/L (98-107); CHOLESTEROL LEVEL 155 MG/DL (<200); CHOLESTEROL RISK RATIO 1.614 (<5); CREATININE FOR GFR 0.96 MG/DL (0.70-1.30); FERRITIN 265 NG/ML (26-388); GLOMERULAR FILTRATION RATE > 60.0 (>49); GLUCOSE, FASTING 92 MG/DL (70-100); HDL CHOLESTEROL 96 MG/DL (>40); IRON (FE) 105 UG/DL (65-175); LDL CHOLESTEROL 50 MG/DL (<100); MAGNESIUM LEVEL 2.2 MG/DL (1.8-2.4); NON-HDL-C 59 MG/DL; PERCENT SATURATION 34.1 % (19.7-50.0); POTASSIUM SERUM 4.9 MEQ/L (3.5-5.1); SODIUM LEVEL 132 MEQ/L (136-145); TOTAL IRON BINDING CAPACITY 308 UG/DL (250-450); TRIGLYCERIDES LEVEL 46 MG/DL (<150)
[2019-09-22 16:30] LABS: FOLATE 11.3 NG/ML (>5.4)
== END ==
LOC: M WUC 13:03
PROVIDERS: ATTEND Physician Assistant
DX: D64.9 Anemia, unspecified (principal); I10 Essential (primary) hypertension; R74.8 Abnormal levels of other serum enzymes; F10.10 Alcohol abuse, uncomplicated

== ENCOUNTER → 2019-10-09 | Outpatient (CLI) | payer OTHER, MEDICAID | LOC: M OUTALCOH 08:12 | PROVIDERS: ATTEND Psychiatry & Neurology Addiction Medicine | DX: Z13.9 Encounter for screening, unspecified (principal); F10.20 Alcohol dependence, uncomplicated ==

== ENCOUNTER 2019-10-17 14:04 | Outpatient (RCR) | payer OTHER, MEDICAID | END 2019-10-22 | LOC: M OUTALCOH 14:04 | PROVIDERS: ATTEND Psychiatry & Neurology Addiction Medicine | DX: F10.20 Alcohol dependence, uncomplicated (principal); F12.10 Cannabis abuse, uncomplicated; F17.200 Nicotine dependence, unspecified, uncomplicated ==

== ENCOUNTER → 2019-11-21 | Outpatient (RCR) | payer OTHER, MEDICAID | LOC: M OUTALCOH 10-23 10:25 | PROVIDERS: ATTEND Psychiatry & Neurology Addiction Medicine | DX: F10.20 Alcohol dependence, uncomplicated (principal); F12.10 Cannabis abuse, uncomplicated; F17.200 Nicotine dependence, unspecified, uncomplicated ==

== ENCOUNTER 2020-09-07 12:41 | Emergency (ER) | payer OTHER, MEDICAID ==
[~2020-09-07] VITALS: Ht 177.8 cm; Wt 65.9 kg
[2020-09-07] MEDS ORDERED: AMLO1TAB24 (12:57)
[2020-09-07] MEDS ORDERED: MAGN400T2 (12:57)
[2020-09-07] MEDS ORDERED: LISI-898 (12:57)
[2020-09-07] MEDS ORDERED: ACETAMINOPHEN 325 MG TAB PO ONE (16:10)
[2020-09-07] MEDS ORDERED: LEVALBUTEROL HFA 45MCG/ACT 15 GM INHALER INH ONE (16:10)
[2020-09-07] MEDS ORDERED: lisinopriL 5 MG TAB PO ONE (16:20)
[2020-09-07] MEDS ORDERED: amLODIPine 5 MG TAB PO ONE (16:20)
--- NOTE | 2020-09-07 17:03 | REP ---
INDICATION: pain/ infection. COMPARISON: Comparison left great toe series February 05, 2014.. TECHNIQUE: AP and lateral views of the left foot are obtained. FINDINGS: AP and lateral views of the left foot demonstrate moderate hallux valgus deformity again noted. This is unchanged. Overall mineralization pattern is normal. There is ankylosis of the PIP joint of the 2nd toe suggestive of previous surgery. There is a small plantar calcaneal spur. No soft tissue gas is seen. No acute bony erosive changes observed.. No fracture or subluxation is seen. No opaque foreign body noted. IMPRESSION: Moderate hallux valgus deformity. No acute erosive change. Plantar heel spur.. <Electronically signed by Atul Rocha > 09/07/20 [id number]
--- NOTE | 2020-09-07 17:04 | REP ---
INDICATION: infection/pain. COMPARISON: None. TECHNIQUE: Four views of the left ankle are obtained. FINDINGS: Four views of the left ankle demonstrate diffuse soft tissue swelling about the distal calf and ankle. Ankle mortise is intact. No erosive changes seen. No soft tissue gas is observed. No opaque foreign body is noted. Mild plantar and Achilles calcaneal spurring is noted. IMPRESSION: Diffuse soft tissue swelling. Heel spurs. No acute erosive changes. <Electronically signed by Atul Rocha > 09/07/20 [id number]
--- NOTE | 2020-09-07 17:05 | REP ---
INDICATION: hip pain. COMPARISON: None. TECHNIQUE: AP and frogleg views of the right hip are presented. FINDINGS: There is moderate femoral head and acetabular spurring consistent with osteoarthritis. Subcortical cyst formation is seen in the superior acetabular margin. Surgical hernia repair sutures are visible in the lower abdomen/pelvis. Vascular calcification is observed. No fracture is seen. IMPRESSION: No acute bony abnormality is seen. Moderate osteoarthritis right hip. Vascular calcification. <Electronically signed by Atul Rocha > 09/07/20 [id number]
[2020-09-07 17:19] LABS: BASO % 0.5 % (0.0-1.0); EOS # 0.2 10^3/uL (0.0-0.5); EOS % 5.6 % (0.0-3.0); HEMATOCRIT 31.6 % (42.0-52.0); LYMPH # 0.7 10^3/uL (1.5-5.0); LYMPH % 15.6 % (24.0-44.0); MEAN CORPUSCULAR HEMOGLOBIN 33.5 pg (27.0-33.0); MEAN CORPUSCULAR HGB CONC 34.8 g/dl (32.0-36.5); MEAN CORPUSCULAR VOLUME 96.3 fl (80.0-96.0); MONO # 0.7 10^3/uL (0.0-0.8); MONO % 16.8 % (2.0-8.0); NEUTROPHILS # 2.6 10^3/uL (1.5-8.5); PLATELET COUNT, AUTOMATED 226 10^3/uL (150-450); RED BLOOD COUNT 3.28 10^6/uL (4.30-6.10); WHITE BLOOD COUNT 4.3 10^3/uL (4.0-10.0)
[2020-09-07] MEDS ORDERED: NS 1,000 ML IV ONE (17:20)
[2020-09-07 17:40] LABS: ALBUMIN 3.4 GM/DL (3.2-5.2); BILIRUBIN,DIRECT 0.1 MG/DL (0.0-0.2); BILIRUBIN,TOTAL 0.8 MG/DL (0.2-1.0); TOTAL PROTEIN 7.3 GM/DL (6.4-8.2)
[2020-09-07 17:42] LABS: CK-MB VALUE MASS 3.2 NG/ML (<3.6); CPK CREATINE PHOSPHOKINASE 167 U/L (39-308); MB/CK RELATIVE INDEX 1.92 (< OR =4); TROPONIN I < 0.02 NG/ML (< 0.10)
[2020-09-07] MEDS ORDERED: DOXYCYCLINE HYCLATE 100 MG in D5W MINI-BAG PLUS 100 ML IV ONE (17:55)
[2020-09-07 17:57] VITALS: BP 166/75
[2020-09-07] MEDS ORDERED: KETOROLAC 30 MG/ML 1ML VIAL IV ONE (18:00)
[2020-09-07 18:02] LABS: HEMOGLOBIN A1c 5.3 %
[2020-09-07] MEDS ORDERED: DOXY100C37 PO (19:21)
[2020-09-07] MEDS ORDERED: BACITRACIN OINTMENT 30GM TUBE TOP ONE (19:35)
--- NOTE | 2020-09-07 20:26 | ECGEPIP ---
[facility] - ED Test Date: 2020-09-07 Pat Name: KELL JEONG Department: Room: - Gender: Male [employer]: RS : 1960 Requested By: XIOMARA Gonzalez PA-C Order Number: [id number] Reading MD: Andres Delacruz Measurements Intervals [place] Rate: 66 P: 85 NJ: 246 QRS: 71 QRSD: 100 T: 76 QT: 426 QTc: 446 Interpretive Statements Sinus rhythm with 1st degree AV block Cannot rule out Anteroseptal infarct , age undetermined Electronically Signed on 09-07-2020 20:26:11 EDT by Andres Delacruz
== END 2020-09-07 20:05 | disposition home or self-care (01) ==
LOC: M ED 12:41
DX: L03.116 Cellulitis of left lower limb (principal); M16.11 Unilateral primary osteoarthritis, right hip; E87.1 Hypo-osmolality and hyponatremia; M20.10 Hallux valgus (acquired), unspecified foot; I10 Essential (primary) hypertension; J44.9 Chronic obstructive pulmonary disease, unspecified; G47.30 Sleep apnea, unspecified; L40.9 Psoriasis, unspecified; Z79.899 Other long term (current) drug therapy; F17.210 Nicotine dependence, cigarettes, uncomplicated
CPT/HCPCS: 73502; 73610; 73620; 80047; 80076; 82550; 82553; 83036; 84484; 85025; 93005; 96361; 96365; 96366; 96375; 99284; J1885

== ENCOUNTER → 2020-10-16 | Outpatient (REF) | payer OTHER, MEDICAID ==
[~2020-10-16] MED LIST changes: +AMLO1TAB24; +DOXY100C37 PO; +LISI-898; +MAGN400T2
[2020-10-16 15:32] LABS: HEMATOCRIT 36.7 % (42.0-52.0); HEMOGLOBIN 12.9 g/dl (13.5-17.5); MEAN CORPUSCULAR HEMOGLOBIN 33.7 pg (27.0-33.0); MEAN CORPUSCULAR HGB CONC 35.1 g/dl (32.0-36.5); MEAN CORPUSCULAR VOLUME 95.8 fl (80.0-96.0); PLATELET COUNT, AUTOMATED 215 10^3/uL (150-450); RED BLOOD COUNT 3.83 10^6/uL (4.30-6.10); WHITE BLOOD COUNT 3.6 10^3/uL (4.0-10.0)
[2020-10-16 16:02] LABS: ALBUMIN 3.7 GM/DL (3.2-5.2); ALT/SGPT 40 U/L (12-78); BILIRUBIN,TOTAL 0.6 MG/DL (0.2-1.0); BLOOD UREA NITROGEN 12 MG/DL (7-18); CALCIUM LEVEL 9.1 MG/DL (8.8-10.2); CARBON DIOXIDE LEVEL 28 MEQ/L (21-32); CHLORIDE LEVEL 93 MEQ/L (98-107); CREATININE FOR GFR 0.82 MG/DL (0.70-1.30); GLOMERULAR FILTRATION RATE > 60.0 (>49); GLUCOSE, FASTING 76 MG/DL (70-100); POTASSIUM SERUM 5.1 MEQ/L (3.5-5.1); SODIUM LEVEL 129 MEQ/L (136-145); TOTAL PROTEIN 7.9 GM/DL (6.4-8.2)
[2020-10-16 16:06] LABS: PERCENT SATURATION 49.8 % (19.7-50.0); THYROID STIMULATING HORMONE 1.21 uIU/ML (0.358-3.740)
== END ==
LOC: M SFHCPLAZ 13:43
PROVIDERS: ATTEND Nurse Practitioner Adult Health
DX: E87.1 Hypo-osmolality and hyponatremia (principal)

== ENCOUNTER → 2020-11-06 | Outpatient (CLI) | payer OTHER, MEDICAID ==
--- NOTE | 2020-11-06 15:01 | REP ---
INDICATION: OTHER INTERVERTEBRAL DISC DISPLACEMENT, LUMBAR REGION. COMPARISON: None. TECHNIQUE/RADIOTRACER AND DOSE: Following the intravenous administration of 21.1mCi technetium 99 M MDP, patient's whole-body is imaged in multiple projections. FINDINGS: Mild facet arthritic uptake is seen at the L4-5 level. Mild facet arthritic uptake is also seen in the left cervical facet joints. There are 3 cup take is seen at the right acromioclavicular joint and left glenohumeral joint there also appears to be mild arthritic uptake at the wrists bilaterally, as well as the right elbow joint. There is no compelling scintigraphic evidence of osseous metastases. Renal and bladder activity are seen.. IMPRESSION: Scattered areas of arthritic uptake as discussed above. No compelling scintigraphic evidence of osseous metastases. <Electronically signed by Amadeo Lozano > 11/06/20 [id number]
== END ==
LOC: M RAD 10:00
PROVIDERS: ATTEND Physical Medicine & Rehabilitation
DX: M51.26 Other intervertebral disc displacement, lumbar region (principal)

== ENCOUNTER → 2020-11-15 | Outpatient (CLI) | payer OTHER, MEDICAID ==
[~2020-11-15] MED LIST changes: -DOXY100C37 PO; +DOXY1CAP62 PO
[2020-11-15 15:37] LABS: BLOOD UREA NITROGEN 9 MG/DL (7-18); C REACTIVE PROTEIN QUANTITATIV 0.38 MG/DL (0.00-0.30); CREATININE FOR GFR 0.68 MG/DL (0.70-1.30); GLOMERULAR FILTRATION RATE > 60.0 (>49); RHEUMATOID FACTOR QUANT < 10.0 IU/ML (<15.0)
[2020-11-18 13:08] LABS: ANTINUCLEAR ANTIBODIES DIRECT Negative (Negative)
== END ==
LOC: M PLAIMG 13:17
PROVIDERS: ATTEND Physical Medicine & Rehabilitation
DX: M51.36 Other intervertebral disc degeneration, lumbar region (principal); M16.11 Unilateral primary osteoarthritis, right hip

== ENCOUNTER → 2020-11-19 | Outpatient (CLI) | payer OTHER, MEDICAID ==
[~2020-11-19] MED LIST changes: +PROHANCE 279.3MG/ML 15ML VIAL As Ordered ONE
--- NOTE | 2020-11-19 15:59 | REPVR ---
PROCEDURE INFORMATION: Exam: MR Lumbar Spine Without and With Contrast Exam date and time: 11/19/2020 3:04 PM Age: 60 years old Clinical indication: Low back pain; Patient HX: Lbp; Additional info: Disc degeneration TECHNIQUE: Imaging protocol: Multiplanar magnetic resonance images of the lumbar spine without and with intravenous contrast. Contrast material: PROHANCE; Contrast volume: 13 ml; Contrast route: INTRAVENOUS (IV); COMPARISON: NM Bone Scan Whole Body 11/06/2020 10:30 AM FINDINGS: Vertebrae: Bone marrow signal is severely heterogeneous. This is nonspecific, but could represent red marrow reconversion, or a marrow replacement process such as metastatic disease, myeloma, or lymphoma. Bone marrow edema is present in the L5 vertebral body, extending into the bilateral L5 pedicles and superior facets. Small age-indeterminate superior and inferior endplate compression fractures are noted at L5. There is mild central L5 vertebral body height loss. Mild bone marrow edema is also present in the bilateral L4 pedicles, presumably degenerative. Enhancement is noted around the bilateral L4-L5 facets which could be due to severe degenerative facet arthropathy or infectious/septic facet arthritis. Spinal cord: The conus medullaris terminates at the L1 level. There is no evidence of arachnoiditis or cauda equina compression. L1-L2: There is mild facet arthropathy. This is causing minimal bilateral neural foraminal narrowing. There is no spinal canal stenosis. L2-L3: There is minimal diffuse circumferential disc bulging and mild facet arthropathy. There is no significant spinal canal stenosis. Mild/moderate bilateral neural foraminal narrowing is present. L3-L4: There is mild diffuse circumferential disc bulging, moderate facet arthropathy, and thickening of the ligamentum flavum. This is causing mild spinal canal stenosis and moderate bilateral neural foraminal narrowing. L4-L5: There is epidural thickening and enhancement within the posterior aspect of the canal at the L4-L5 level. Epidural phlegmon is possible. There is moderate diffuse circumferential disc bulging, severe facet arthropathy, and thickening of the ligamentum flavum. There is thickening and enhancement of the posterior epidural space, possibly due to an epidural phlegmon. Increased synovial fluid is present in the bilateral facet joints. Enhancement within and around the facet joints is noted. This could represent septic facet arthritis. There is moderate/severe spinal canal stenosis, severe narrowing of the subarticular recesses, moderate right neural foraminal narrowing, and moderate/severe left neural foraminal narrowing. L5-S1: There is moderate diffuse circumferential disc bulging and severe facet arthropathy. This is causing mild spinal canal stenosis, severe right neural foraminal narrowing, and moderate left neural foraminal narrowing. Soft tissues: Inflammation is present around the bilateral L3-L4 and L4-L5 facets. IMPRESSION: 1. Severely heterogeneous bone marrow. This is nonspecific, but could represent anemia of chronic disease, red marrow reconversion, or a marrow replacement process such as metastatic disease, myeloma, or lymphoma. 2. Acute/subacute superior and inferior endplate compression fractures at L5. 3. Possible septic facet arthritis at L4-L5. Clinical and laboratory correlation is recommended. 4. Thickening and enhancement of the posterior epidural space at the L4-L5 levels, possibly representing epidural phlegmon. Moderate/severe spinal canal stenosis is present Electronically signed by: Leonardo Arenas On 11/19/2020 15:58:39 PM
== END ==
LOC: M RAD 13:13
PROVIDERS: ATTEND Physical Medicine & Rehabilitation
DX: M51.26 Other intervertebral disc displacement, lumbar region (principal)

== ENCOUNTER → 2020-11-28 | Outpatient (CLI) | payer OTHER, MEDICAID ==
[~2020-11-28] MED LIST changes: -PROHANCE 279.3MG/ML 15ML VIAL As Ordered ONE
[2020-11-28 16:47] LABS: BASO % 0.6 % (0.0-1.0); EOS # 0.1 10^3/uL (0.0-0.5); EOS % 2.9 % (0.0-3.0); HEMATOCRIT 33.6 % (42.0-52.0); HEMOGLOBIN 11.7 g/dl (13.5-17.5); LYMPH # 0.4 10^3/uL (1.5-5.0); LYMPH % 11.4 % (24.0-44.0); MEAN CORPUSCULAR HEMOGLOBIN 33.3 pg (27.0-33.0); MEAN CORPUSCULAR HGB CONC 34.8 g/dl (32.0-36.5); MEAN CORPUSCULAR VOLUME 95.7 fl (80.0-96.0); MONO # 0.7 10^3/uL (0.0-0.8); MONO % 19.7 % (2.0-8.0); NEUTROPHILS # 2.3 10^3/uL (1.5-8.5); NEUTROPHILS % 65.4 % (36.0-66.0); PLATELET COUNT, AUTOMATED 194 10^3/uL (150-450); RED BLOOD COUNT 3.51 10^6/uL (4.30-6.10); WHITE BLOOD COUNT 3.5 10^3/uL (4.0-10.0)
[2020-11-28 17:14] LABS: ALBUMIN 3.2 GM/DL (3.2-5.2); ALT/SGPT 33 U/L (12-78); BILIRUBIN,TOTAL 0.3 MG/DL (0.2-1.0); BLOOD UREA NITROGEN 12 MG/DL (7-18); CARBON DIOXIDE LEVEL 31 MEQ/L (21-32); CHLORIDE LEVEL 94 MEQ/L (98-107); CREATININE FOR GFR 0.82 MG/DL (0.70-1.30); GLOMERULAR FILTRATION RATE > 60.0 (>49); GLUCOSE, FASTING 65 MG/DL (70-100); IRON (FE) 106 UG/DL (65-175); PERCENT SATURATION 39.3 % (19.7-50.0); POTASSIUM SERUM 4.7 MEQ/L (3.5-5.1); SODIUM LEVEL 133 MEQ/L (136-145); TOTAL IRON BINDING CAPACITY 270 UG/DL (250-450); TOTAL PROTEIN 7.1 GM/DL (6.4-8.2)
[2020-11-28 17:22] LABS: FOLATE 9.5 NG/ML; VITAMIN B12 LEVEL 331 PG/ML
[2020-11-28 21:16] LABS: ERYTHROCYTE SEDIMENTATION RATE 38 mm/hr (0-20)
== END ==
LOC: M WUC 14:00
PROVIDERS: ATTEND Internal Medicine Infectious Disease
DX: D64.9 Anemia, unspecified (principal); M51.36 Other intervertebral disc degeneration, lumbar region; R93.7 Abnormal findings on diagnostic imaging of other parts of musculoskeletal system

== ENCOUNTER → 2020-11-28 | Outpatient (CLI) | payer OTHER, MEDICAID | LOC: M WUC 14:03 | PROVIDERS: ATTEND Physical Medicine & Rehabilitation | DX: M51.26 Other intervertebral disc displacement, lumbar region (principal); M70.61 Trochanteric bursitis, right hip ==

== ENCOUNTER → 2020-12-11 | Outpatient (CLI) | payer OTHER, MEDICAID | LOC: M PLAIMG 12:36 | PROVIDERS: ATTEND Physical Medicine & Rehabilitation | DX: M70.61 Trochanteric bursitis, right hip (principal) ==

== ENCOUNTER → 2020-12-16 | Outpatient (CLI) | payer OTHER, MEDICAID ==
[~2020-12-16] MED LIST changes: +PROHANCE 279.3MG/ML 15ML VIAL As Ordered ONE
--- NOTE | 2020-12-16 11:51 | REP ---
INDICATION: TROCHANTERIC BURSITIS. COMPARISON: Comparison is made with images from bone scan November 06, 2020 as well as right hip radiographs from September 07 2020.. TECHNIQUE: Precontrast imaging includes coronal T1 and T2-weighted scans of both hips. Precontrast high-resolution smaller field of view axial, coronal and sagittal T2 fat sat images are acquired of the right hip. Intravenous contrast is administered. The contrast dose is 13 mL of intravenous ProHance. Postcontrast T1 fat sat images are acquired in all 3 planes.. FINDINGS: Cortical and medullary bone signal intensity is normal in the proximal femurs bilaterally. There is no evidence to suggest a vascular necrosis. There is however moderate to advanced femoroacetabular osteoarthritis with will well established junctional spurs on the femoral heads bilaterally, acetabular spurring, joint space narrowing, and fairly extensive bilateral subcortical cyst formation in each iliac bone superior to the acetabulum. There is a small right hip joint effusion. There is are degenerative changes in the acetabular labral cartilage is bilaterally. There is no evidence of loose body. The right ligamentum teres is not well seen. There is a small fluid collection along the iliac bone on the right superior to the joint underlying the iliacus muscle. This measures 2.2 cm in greatest diameter. No other juxta-articular cyst or mass is seen. There is a small fluid collection adjacent the greater trochanter on the right consistent with bursitis. Greater trochanteric tendon insertion site spurring is seen. Hamstring tendon insertion sites are unremarkable. Postcontrast imaging shows no significant gadolinium enhancement. IMPRESSION: Moderate to advanced bilateral hip joint osteoarthritis. Small joint effusion on the right. There are bursal fluid collections adjacent the greater trochanter and there is tendon insertion site spurring on the greater trochanter consistent with tendinitis/bursitis. No evidence to suggest septic arthropathy. <Electronically signed by Atul Rocha > 12/16/20 [id number]
== END ==
LOC: M RAD 09:42
PROVIDERS: ATTEND Physical Medicine & Rehabilitation
DX: M70.61 Trochanteric bursitis, right hip (principal)

== ENCOUNTER → 2021-01-15 | Outpatient (CLI) | payer OTHER, MEDICAID ==
[~2021-01-15] MED LIST changes: +LIDOCAINE 1% MDV 20ML VIAL As Ordered ONE; -LISI-898; +LISI-898 PO; -MAGN400T2; +MAGN400T2 PO; -PROHANCE 279.3MG/ML 15ML VIAL As Ordered ONE; +SODIUM BICARBONATE 8.4% INJ 50MEQ 50 ML VIAL As Ordered ONE
[2021-01-15 10:25] LABS: HEMATOCRIT 31.4 % (42.0-52.0); HEMOGLOBIN 11.3 g/dl (13.5-17.5); MEAN CORPUSCULAR HEMOGLOBIN 34.7 pg (27.0-33.0); MEAN CORPUSCULAR VOLUME 96.3 fl (80.0-96.0); PLATELET COUNT, AUTOMATED 206 10^3/uL (150-450); RED BLOOD COUNT 3.26 10^6/uL (4.30-6.10)
[2021-01-15 11:40] VITALS: BP 144/70
--- NOTE | 2021-01-15 15:59 | REP ---
INDICATION: ANEMIA. COMPARISON: None. TECHNIQUE: The procedure is performed by Carmen Balderas [facility], under the direct supervision of Dr. Rocha. The risks and benefits of the procedure were explained to the patient and informed consent was obtained both orally and written. Directly prior to the start of the procedure, a formal timeout was done in the exam room. The left iliac crest was localized using CT guidance. Skin was prepped and draped in the usual sterile fashion. Four ml of buffered lidocaine was used as a local anesthetic. FINDINGS: Using CT guidance an 11 gauge bone biopsy system was inserted. Approximately 6 mL of marrow fluid was obtained, as well as 1 core of bone. Patient tolerated the procedure well and there were no immediate complications. After the appropriate amount of monitored convalescence the patient was discharged from the department. IMPRESSION: CT-guided bone marrow aspiration and core bone biopsy. <Electronically signed by Carmen Balderas > 01/15/21 [id number] <Electronically signed by Atul Rocha > 01/15/21 [id number]
== END ==
LOC: M IRPRO 09:40
PROVIDERS: ATTEND Internal Medicine Medical Oncology
DX: D64.9 Anemia, unspecified (principal)

== ENCOUNTER → 2021-02-12 | Outpatient (CLI) | payer OTHER, MEDICAID ==
[~2021-02-12] MED LIST changes: -AMLO1TAB24; +AMLO1TAB24 PO; -LIDOCAINE 1% MDV 20ML VIAL As Ordered ONE; -SODIUM BICARBONATE 8.4% INJ 50MEQ 50 ML VIAL As Ordered ONE
== END ==
LOC: M LABSMTC 11:29
PROVIDERS: ATTEND Anesthesiology
DX: Z01.812 Encounter for preprocedural laboratory examination (principal); Z20.822 Contact with and (suspected) exposure to COVID-19

== ENCOUNTER 2021-02-17 10:25 | Day surgery (SDC) | payer OTHER, MEDICAID ==
[~2021-02-17] VITALS: Ht 177.8 cm; Wt 64.8 kg
[~2021-02-17 10:25] MED LIST changes: +CYCLOPENTOLATE 1% OPHTH SOLN 2 ML BTL OD SCH; +FLURBIPROFEN 0.03% OPHTH SOLN 2.5 ML OD SCH; +LIDOCAINE 1% MDV 20ML VIAL SQ PRN; +LR 1,000 ML IV SCH; +PHENYLEPHRINE 2.5% OPHTH SOL 2ML OD SCH; +TETRACAINE 0.5% OPHTH SOLN 4ML OD SCH
[2021-02-17] MEDS ORDERED: fentaNYL 100 MCG/2 ML INJECTION (J3010) As Ordered ONE (11:17)
[2021-02-17] MEDS ORDERED: MIDAZOLAM INJ 2MG/2ML VIAL (J2250 PER 1MG) As Ordered ONE (11:17)
[2021-02-17] MEDS ORDERED: LIDOCAINE 1% SDV 5ML VIAL As Ordered ONE (11:34)
[2021-02-17] MEDS ORDERED: DUOVISC (0.50ML VISCOAT/0.85ML PROVISC) OPHTH KIT As Ordered ONE (11:35)
[2021-02-17] MEDS ORDERED: ALBUTEROL SULFATE 2.5 MG/0.5 ML INH NEB SOLN INH ONE (13:00)
[2021-02-17 15:25] VITALS: BP 127/58
== END 2021-02-17 15:25 | disposition home or self-care (01) ==
LOC: M SDC 10:25
PROVIDERS: ATTEND Ophthalmology
DX: H25.11 Age-related nuclear cataract, right eye (principal); I10 Essential (primary) hypertension; K76.9 Liver disease, unspecified; D64.9 Anemia, unspecified; M19.90 Unspecified osteoarthritis, unspecified site; M54.9 Dorsalgia, unspecified; L40.9 Psoriasis, unspecified; J44.9 Chronic obstructive pulmonary disease, unspecified; F17.210 Nicotine dependence, cigarettes, uncomplicated; Z79.899 Other long term (current) drug therapy
CPT/HCPCS: 66984; J2250; J3010

== ENCOUNTER → 2021-03-12 | Outpatient (CLI) | payer OTHER, MEDICAID ==
[~2021-03-12] MED LIST changes: -CYCLOPENTOLATE 1% OPHTH SOLN 2 ML BTL OD SCH; +DOXY-443 PO; -DOXY1CAP62 PO; -FLURBIPROFEN 0.03% OPHTH SOLN 2.5 ML OD SCH; -LIDOCAINE 1% MDV 20ML VIAL SQ PRN; -LR 1,000 ML IV SCH; -PHENYLEPHRINE 2.5% OPHTH SOL 2ML OD SCH; -TETRACAINE 0.5% OPHTH SOLN 4ML OD SCH
== END ==
LOC: M LABSMTC 11:21
PROVIDERS: ATTEND Anesthesiology
DX: Z01.812 Encounter for preprocedural laboratory examination (principal); Z20.822 Contact with and (suspected) exposure to COVID-19

== ENCOUNTER 2021-03-17 09:08 | Day surgery (SDC) | payer OTHER, MEDICAID ==
[~2021-03-17] VITALS: Ht 177.8 cm; Wt 66.7 kg
[~2021-03-17 09:08] MED LIST changes: +DUOVISC (0.50ML VISCOAT/0.85ML PROVISC) OPHTH KIT As Ordered ONE; +LIDOCAINE 1% SDV 5ML VIAL As Ordered ONE; +LR 1,000 ML IV SCH; +MIDAZOLAM INJ 2MG/2ML VIAL (J2250 PER 1MG) As Ordered ONE; +fentaNYL 100 MCG/2 ML INJECTION (J3010) As Ordered ONE
--- OUTSIDE RECORDS SUMMARY | 2021-03-17 09:18 | CCD ---
Author Author [facility] Organization [facility] Address Unknown Phone Unavailable Care Team Providers Care Rn Unit Manager Name Role Phone Vinay Srinivasan Unavailable PROBLEMS Type Condition ICD9-CM Code IJO30-KP Code Onset Dates Condition S tatus W/U Status Risk SNOMED Code Notes Problem Anemia D64.9 Active confirmed 898703503 Problem Psoriasis L40.9 Active confirmed 0399846 Problem Tobacco abuse Z72.0 Active confirmed 939709 05 Problem Essential (primary) hypertension I10 Active conf irmed 38152610 Controlled right now on lisinopril and amlodipine Problem Hx of adenomatous colonic polyps Z86.010 Active confirmed 323261227 Problem Alcohol abuse F10.10 Active confirmed 585075 05 I encouraged can to try to go to some meetings, and to establish with a counselor, but he is resistant Problem Hyponatremia E87.1 Active confirmed 4864568 8 Problem Moderate depressive disorder F32.9 Active confirme d 781941456 Problem DDD (degenerative disc disease), lumbar M51.36 Active confirmed 40475904 Problem Liver enzyme elevation R74.8 Active confirmed 268112149 Problem Elevated erythrocyte sedimentation rate R70.0 Active confirmed 441158414 Problem Traumatic ischemia of muscle, initial encounter T7 9.6XXA Active confirmed 445642430 Problem 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 Active confirmed 1364 5005 Problem Other chronic pain G89.29 Active confirmed 8 2320528 Problem Abnormal MRI, lumbar spine R93.7 Active confirmed 840274370 Problem Anemia, unspecified type D64.9 Active confirmed 664485141 ALLERGIES No Known Allergies ENCOUNTERS from 1960 to 2020-12-17 Encounter Location Date Provider Diagnosis [facility] [address] [facility] [phone] [place] [address] Nov, Vinay Srinivasan DDD (degenerative disc disea se), lumbar M51.36 ; Abnormal MRI, lumbar spine R93.7 ; Elevated erythrocyte sedimentation rate R70.0 ; Anemia, unspecified type D64.9 ; Alcohol abuse F10.10 ; Liver enzyme elevation R74.8 and Essential (primary) hypertension I10 IMMUNIZATIONS Vaccine Route Administration Date Status Pneumococcal Adult 0.5mL Pneumovax 23 IM Intramuscular Feb 03, 2017 Administered SOCIAL HISTORY Tobacco Use: Social History Observation Description Date Details (start date - stop date) Current Smoker Sex Assigned At : Social History Observation Description Sex Assigned At Unknown Education: Question Answer Notes Level of Education: Not finished 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 Sexual Hx: Question Answer Notes Had sex in the last 12 months (vaginal, oral, or anal)? Yes Have you ever had an STD? No Prevention Strategies discussed: Other with Women only Use protection? No Drug and Alcohol Question Answer Notes Total Score: 1 Interpretation: Low level Tobacco Use: Question Answer Notes Are you a: current smoker Smoking Cessation Information Given 2020 Patient counseled on the dangers of tobacco use and urged to quit: 2020 How many cigarettes a day do you smoke? 11-20 Are you interested in quitting? Not ready to quit Counseled the patient on smoking effects, education provided 2020 REASON FOR REFERRAL No Information VITAL SIGNS Weight 154 lbs Nov, Height 5'10" in Nov, BMI 22.09 kg/m2 Nov, Heart Rate 103 /min Nov, Respiratory Rate 18 /min Nov, Temperature 98 degrees Fahrenheit Nov, Oximetry 98% Nov, Blood pressure systolic 160 mm Hg Nov, Blood pressure diastolic 98 mm Hg Nov, MEDICATIONS Medication SIG (Take, Route, Frequency, Duration) Notes Start Da te End Date Status Lisinopril 5 MG 1 tablet Orally Once a day Active Norvasc 5 MG 1 tablet Orally Once a day Active PROCEDURES No Information RESULTS Component Value Reference Range CBC with Differential Reviewed date:12/02/2020 08:39:18 Interpretation: Performing Lab:[facility] [address] [facility] [address] , ,[place] [address] WHITE BLOOD COUNT 3.5 4.0-10.0 RED BLOOD COUNT 3.51 4.30-6.10 HEMOGLOBIN 11.7 13.5-17.5 HEMATOCRIT 33.6 42.0-52.0 MEAN CORPUSCULAR VOLUME 95.7 80.0-96.0 MEAN CORPUSCULAR HEMOGLOBIN 33.3 27.0-33.0 MEAN CORPUSCULAR HGB CONC 34.8 32.0-36.5 RED CELL DISTRIBUTION WIDTH 12.9 11.5-14.5 PLATELET COUNT, AUTOMATED 194 150-450 NEUTROPHILS % 65.4 36.0-66.0 LYMPH % 11.4 24.0-44.0 MONO % 19.7 2.0-8.0 EOS % 2.9 0.0-3.0 BASO % 0.6 0.0-1.0 NEUTROPHILS # 2.3 1.5-8.5 LYMPH # 0.4 1.5-5.0 MONO # 0.7 0.0-0.8 EOS # 0.1 0.0-0.5 BASO # 0.0 0.0-0.2 Comprehensive Metabolic Profile (CMP) Reviewed date:12/02/2020 08:39:18 Interpretation: Performing Lab:[facility] [address] [facility] [address] , ,[place] [address] GLUCOSE, FASTING 65 70-100 BLOOD UREA NITROGEN 12 7-18 CREATININE FOR GFR 0.82 0.70-1.30 GLOMERULAR FILTRATION RATE > 60.0 >49 SODIUM LEVEL 133 136-145 POTASSIUM SERUM 4.7 3.5-5.1 CHLORIDE LEVEL 94 98-107 CARBON DIOXIDE LEVEL 31 21-32 CALCIUM LEVEL 9.0 8.8-10.2 AST/SGOT 64 7-37 ALT/SGPT 33 12-78 ALKALINE PHOSPHATASE 104 45-117 BILIRUBIN,TOTAL 0.3 0.2-1.0 TOTAL PROTEIN 7.1 6.4-8.2 ALBUMIN 3.2 3.2-5.2 ALBUMIN/GLOBULIN RATIO 0.8 C REACTIVE PROTEIN QUANTITATIV (At [facility] L [facility]) Reviewed date:12/02/2020 08:39:18 Interpretation: Performing Lab:[facility] [address] [facility] [address] , ,[place] [address] C REACTIVE PROTEIN QUANTITATIV 0.30 0.00-0.30 ERYTHROCYTE SEDIMENTATION RATE Reviewed date:12/02/2020 08:39:19 Interpretation: Performing Lab:[facility] [address] [facility] [address] , ,[place] [address] ERYTHROCYTE SEDIMENTATION RATE 38 0-20 TOTAL IRON BINDING CAPACIT Reviewed date:12/02/2020 08:39:19 Interpretation: Performing Lab:[facility] [address] [place] [address] , ,[facility] IRON (FE) 106 65-175 TOTAL IRON BINDING CAPACITY 270 250-450 PERCENT SATURATION 39.3 19.7-50.0 VITB12 & FOL Reviewed date:12/02/2020 08:39:19 Interpretation: Performing Lab:[facility] [address] [facility] [address] , ,[facility] VITAMIN B12 LEVEL 331 FOLATE 9.5 LYME DISEASE SCRN WITH CONFIRM Reviewed date:12/05/2020 09:20:03 Interpretation: Performing Lab:[facility] [address] [place] [address] , ,[facility]01 Lyme Disease IgG/IgM Antibodie <0.91 0.00-0.90 Lyme Disease IgM Ab Quantitati <0.80 0.00-0.79 QUANTIFERON TB GOLD TEST Reviewed date:12/05/2020 09:20:03 Interpretation: Performing Lab:[facility] [address] [place] [address] , [place] [address] REASON FOR VISIT septic arthtritis MEDICAL (GENERAL) HISTORY Type Description Date Medical History essential hypertension Medical History chronic plaque psoriasis Medical History posttraumatic muscle contrac ture following an injury, involving right hand, fingers, wrist, shoulder initially treated with Dr. Sheets, Dr. Garcia 2012, patient has declined physical therapy will return to Dr. Sheets Medical History decreased hearing referred for hearing e valuation refused Medical History abnormal liver functions kathryn er ultrasound 06/20/2014 negative Alcohol abuse Medical History tick bite January 2014, titer negative Medical History streptococcal pneumonia 10/22 with bacteremia positive streptococcal urine antigen Medical History 11/23/2016, echocardiogram, LVEF 75%, normal left ventricular size, wall thickness, hyperkinetic wall motion. Subtle aortic valvular sclerosis without stenosis and only trace insufficiency. Medical History alcohol abuse Medical History COPD Medical History depression Medical History anemia Medical History hyponatremia Medical History history of adenomatous colonic polyps Medical History smoker Surgical History Right shoulder repair 2001 Surgical History skin graft & right hand repair [address] Torres, 3-6 polyps descending colon return fragment of tubular adenoma 06/15/14 Surgical History colonoscopy, suboptimal prep aration, repeat colonoscopy in 2 years. Due July 2019-08/05/2017 Hospitalization History [facility]-Left lower lobe pneumonia 11/02- Hospitalization History alcohol detox/rehabilitation 08/2019 Hospitalization History cellulitis left foot 09/07/20 Goals Section No Information Health Concerns No Information MEDICAL EQUIPMENT No Information MENTAL STATUS No Information FUNCTIONAL STATUS No Information ASSESSMENTS Encounter Date Diagnosis Assessment Notes Treatment Notes Treatm ent Clinical Notes Nov, DDD (degenerative disc disease), lumbar (ICD-10 - M51.36) Case was discussed with Dr. Jon Rocha regarding possibility of aspiration for diagnosis of infectious process. Disc space is intact there is no evidence of discitis. There is facet joint inflammation and fluid which is more suggestive of an inflammatory process than an infectious process. We will discuss the case with orthopedic surgery Dr. Garcia and Dr. Fisher regarding possible bone biopsy. First will wait for results of lab test before any intervention. Nov, Abnormal MRI, lumbar spine (ICD-10 - R93.7) Disc space intact, abnormal vertebral body of L5 possibly related to compression fracture with edema. Dr. Rocha did not feel he could not biopsy any of those areas. Nov, Elevated erythrocyte sedimentation rate (ICD-10 - R70.0) Nov, Anemia, unspecified type (ICD-10 - D64.9) Nov, Alcohol abuse (ICD-10 - F10.10) I encour aged can to try to go to some meetings, and to establish with a counselor, but he is resistant Patient encouraged to discontinue alcohol use Nov, Liver enzyme elevation (ICD-10 - R74.8) Nov, Essential (primary) hypertension (ICD-10 - I10) PLAN OF TREATMENT Medication Medication Name Sig Start Date Stop Date Lisinopril 5 MG 1 tablet Orally Once a day Norvasc 5 MG 1 tablet Orally Once a day Treatment Notes Assessment Notes Clinical Notes DDD (degenerative disc disease), lumbar Case was discussed with Dr. Jon Rocha regarding possibility of aspiration for diagnosis of infectious process. Disc space is intact there is no evidence of discitis. There is facet joint inflammation and fluid which is more suggestive of an inflammatory process than an infectious process.We will discuss the case with orthopedic surgery Dr. Garcia and Dr. Fisher regarding possible bone biopsy. First will wait for results of lab test before any intervention. Abnormal MRI, lumbar spine Disc space in tact, abnormal vertebral body of L5 possibly related to compression fracture with edema. Dr. Rocha did not feel he could not biopsy any of those areas. Alcohol abuse Patient encouraged t o discontinue alcohol use Treatment Notes Test Name Order Date IRON (FE) 2020-11-28 Next Appt Details 2 Weeks Reason: Provider Name:Gerri Estrella, 03:30:00 PM, [address] [facility], , [place], [address], Insurance Providers Payer Name Payer Address Payer Phone Insured Name Patient Relati onship to Insured Coverage Start Date Coverage End Date MEDICAID [place] [address] [facility] [id number] [address]INEZ self [employer] [facility] [address] [address] [facility] [id number] KELL MARTINEZ [id number]
--- OUTSIDE RECORDS SUMMARY | 2021-03-17 09:18 | CCD | Continuity of Care Document ---
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 Tobacco Use Start: Unknown Patient is a current smoker, smo kes every day about 1 pack a day. Allergies, Adverse Reactions, Alerts Description No Known Drug Allergies Medications Active Medications SIG Qnty Indications Ordering Provide r Date Lisinopril 5mg Tablets Take One Tablet By Mouth Every Day Unknown Amlodipine Besylate 5mg Tablets Take One Tablet By Mouth Every Day Unknown Magnesium Oxide 400mg Tablets Take One Tablet By Mouth Every Day Unknown Acamprosate Calcium 333mg Tablets DR Take Two Tablets By Mouth Three Times A Day Unknown Immunizations Description No Information Available Vital Signs Date Vital Result Comment 12/24/2020 2:37pm Body Temperature 97.1 F 09/09/2020 1:38pm Body Temperature 97.5 F Height 68.5 inches 5'8.50" Weight 153.12 lb BMI (Body Mass Index) 22.9 kg/m2 Results Test Acquired Date Facility Test Result H/L Range Note Laboratory test finding 11/28/2020 [facility] [address] [place] [address] [phone] - Erythrocyte Sedimentation Rate 36 mm/hr High 0-20 C Reactive Protein Quantitativ < 0.30 mg/dL Normal 0.00-0.30 Blood Culture No growth after <SEE NOTE> 1 Laboratory test finding 11/15/2020 [facility] [address] [place] [address] (315)- - Blood Urea Nitrogen 9 mg/dL Normal 7-18 Creatinine With GFR 11/15/2020 [facility] [address] [place] [address] (315)- - Creatinine For GFR 0.68 mg/dL Low 0.70-1.30 Glomerular Filtration Rate > 60.0 Normal >49 2 Laboratory test finding 11/15/2020 [facility] [address] [place] [address] (315)- - Erythrocyte Sedimentation Rate 48 mm/hr High 0-20 C Reactive Protein Quantitativ 0.38 mg/dL High 0.00-0.30 Culture Blood 11/15/2020 [facility] [address] [place] [address] (315)- - Fungal Culture Blood Testing performe <SEE NOTE> 3 Antinuclear Antibodies 11/15/2020 [facility] [address] [place] [address] (315)- - Antinuclear Antibodies Direct Negative Normal Negati ve 4 Laboratory test finding 11/15/2020 [facility] [address] [place] [address] (315)- - Rheumatoid Factor Quant < 10.0 IU/mL Normal <15.0 1 No growth after 72 hours . A ll specimens observed for 5 days. Results final at that time. No growth after 48 hours . All specimens observed for 5 days. Results final at that time. No growth after 24 hours . All specimens observed for 5 days. Results final at that time. NO GROWTH AFTER 5 DAYS 2 Units are mL/min/1.73 m2 Chronic Kidney Disease Staging per NKF: Stage I & II GFR >=60 Normal to Mildly Decreased Stage III GFR 30-59 Moderately Decreased Stage IV GFR 15-29 Severely Decreased Stage V GFR <15 Very Little GFR Left ESRD GFR <15 on [employer] SUPERVISOR 3 Testing performed at [facility] an acute care [facility] lab . Report copy to follow on a separate form. 12/19/20 REF LAB#:[id number] FUNGUS CULTURE [facility] No Yeast or Mold Isolated after 4 weeks. 4 Performed at: - [facility] [address] [id number] Claim Processing Specialist: So Ridley MD, Phone: [phone] Procedures Date Code Description Status 11/26/2020 06682 Office/Outpatient Established Mo d MDM 30-39 Min Completed 11/26/2020 14377 Nerve Conduction 7-8 Studies Com pleted 11/26/2020 54863 Needle Electromyography,Complete Five Or More Muscles Studied Completed 11/12/2020 14800 Office/Outpatient Established Mo d MDM 30-39 Min Completed 09/30/2020 34332 Office/Outpatient New Moderate M DM 45-59 Minutes Completed 09/09/2020 77778 Office/Outpatient New Moderate M DM 45-59 Minutes Completed 09/09/2020 91719 X-Ray Spine Lumbosacral Complete W/Oblique 4 Views Completed Medical Devices Description No Information Available Encounters Type Date Location Provider Dx Diagnosis Office Visit 11/26/2020 2:30p Reena Tatum MD M51.26 Other intervertebral disc displacement, lumbar region M51.36 Other intervertebral disc de generation, lumbar region M48.061 Spinal stenosis, lumbar tonio on without neurogenic judit M70.61 Trochanteric bursitis, right hip Office Visit 11/12/2020 1:40p Reena Tatum MD M70.61 Trochanteric bursitis, right hip M51.26 Other intervertebral disc di splacement, lumbar region M51.36 Other intervertebral disc de generation, lumbar region M48.061 Spinal stenosis, lumbar tonio on without neurogenic judit Office Visit 09/30/2020 4:15p Reena Tatum MD M51.26 Other intervertebral disc displacement, lumbar region M51.36 Other intervertebral disc de generation, lumbar region M43.16 Spondylolisthesis, lumbar re gion M48.061 Spinal stenosis, lumbar tonio on without neurogenic judit Office Visit 09/09/2020 1:15p Norfolklucas Garcia MD M16.11 Unilateral primary osteoarthritis, right hip M54.5 Low back pain Assessments Date Code Description Provider 12/24/2020 M16.0 Bilateral primary osteoarthritis of hip Jimmie Tatum MD 12/24/2020 M70.61 Trochanteric bursitis, right hip Jimmie Tatum MD 12/24/2020 M70.62 Trochanteric bursitis, left hip Jimmie Tatum MD 12/24/2020 M51.26 Other intervertebral disc displa cement, lumbar region Jimmie Tatum MD 12/24/2020 M51.36 Other intervertebral disc degene ration, lumbar region Jimmie Tatum MD 12/24/2020 M48.061 Spinal stenosis, lum bar region without neurogenic claudication Jimmie Tatum MD 11/26/2020 M51.26 Other intervertebral disc displa cement, lumbar region Jimmie Tatum MD 11/26/2020 M51.36 Other intervertebral disc degene ration, lumbar region Jimmie Tatum MD 11/26/2020 M48.061 Spinal stenosis, lum bar region without neurogenic claudication Jimmie Tatum MD 11/26/2020 M70.61 Trochanteric bursitis, right hip Jimmie Tatum MD 11/12/2020 M70.61 Trochanteric bursitis, right hip Jimmie Tatum MD 11/12/2020 M51.26 Other intervertebral disc displa cement, lumbar region Jimmie Tatum MD 11/12/2020 M51.36 Other intervertebral disc degene ration, lumbar region Jimmie Tatum MD 11/12/2020 M48.061 Spinal stenosis, lum bar region without neurogenic claudication Jimmie Tatum MD 09/30/2020 M51.26 Other intervertebral disc displa cement, lumbar region Jimmie Tatum MD 09/30/2020 M51.36 Other intervertebral disc degene ration, lumbar region Jimmie Tatum MD 09/30/2020 M43.16 Spondylolisthesis, lumbar region Jimmie Tatum MD 09/30/2020 M48.061 Spinal stenosis, lum bar region without neurogenic claudication Jimmie Tatum MD 09/09/2020 M16.11 Unilateral primary osteoarthriti s, right hip Brad Garcia MD 09/09/2020 M54.5 Low back pain Brad Garcia MD Plan of Treatment 12/24/2020 - Jimmie Tatum MD* M16.0 Bilateral primary osteoarthritis of hip * Follow up:* 6 week back/rt hip lesly with [facility] * M70.61 Trochanteric bursitis, right hip * M70.62 Trochanteric bursitis, left hip * M51.26 Other intervertebral disc displacement, lumbar region * M51.36 Other intervertebral disc degeneration, lumbar region * M48.061 Spinal stenosis, lumbar region without neurogenic claudication Functional Status Description No Information Available Mental Status Description No Information Available Referrals Refer to Dr Reason for Referral Status Appt Date Brad Garcia MD MRI APPROVED PER MARLENY EAby FOR MRI OF RIGHT HIP W/ & W/O (07127) TO YONAS WILLSON Created [address] [place], [place] [id number] [phone] Brad Garcia MD EMG NO AUTH REQUIRED TO SCHEDULING NT Creat ed [address] [place] [address] [phone] Brad Garcia MD BONE SCAN ([id number]) NO AUTH RE QUIRED PER LAZARA TO YONASLISHA WILLSON Created [address] [place], [place] [id number] [phone] Brad Garcia MD MRI APPROVED PER MEDICAID FO R MRI OF LUMBAR SPINE W/ & W/O ([id number]) TO YONAS Aquiles WILLSON Created [address] [place] [address] [phone] Brad Garcia MD BONE SCAN ([id number]) NO AUTH RE QUIRED PER DENAE Ortiz TO YONAS BermeoAby WILLSON Created [address] [place] [address] [phone] Brad Garcia MD MRI APPROVED PER MARLENY E. FOR MRI LUMBAR SPINE W/ & W/O (56034) TO YONASLISHA WILLSON Created [address] [place] [address] [phone] Brad Garcia MD MRI APPROVED PER MARLENY E. FOR MRI OF LUMBAR SPINE (65913) TO YONAS WILLSON Created [address] [place] [address] [phone]
--- OUTSIDE RECORDS SUMMARY | 2021-03-17 09:18 | CCD ---
Author Author [facility] Organization [facility] Address Unknown Phone Unavailable Care Team Providers Care Asset Protection Assistant Name Role Phone Gerri Estrella Unavailable PROBLEMS Type Condition ICD9-CM Code XBN42-XO Code Onset Dates Condition S tatus W/U Status Risk SNOMED Code Notes Problem Tobacco abuse Z72.0 Active confirmed 335554 05 Problem Anemia D64.9 Active confirmed 275019856 Problem Hx of adenomatous colonic polyps Z86.010 Active confirmed 035839259 Problem Psoriasis L40.9 Active confirmed 9553140 Problem Traumatic ischemia of muscle, initial encounter T7 9.6XXA Active confirmed 729213936 Problem Essential (primary) hypertension I10 Active conf irmed 70955371 Controlled right now on lisinopril and amlodipine Problem Hyponatremia E87.1 Active confirmed 8353529 8 Problem Moderate depressive disorder F32.9 Active confirme d 879667617 Problem 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 Active confirmed 1364 5005 Problem DDD (degenerative disc disease), lumbar M51.36 Active confirmed 96555098 Problem Alcohol abuse F10.10 Active confirmed 549938 05 I encouraged can to try to go to some meetings, and to establish with a counselor, but he is resistant Problem Elevated erythrocyte sedimentation rate R70.0 Active confirmed 309347783 Problem Liver enzyme elevation R74.8 Active confirmed 192036044 Problem Other chronic pain G89.29 Active confirmed 8 0359765 Problem Age-related nuclear cataract, right eye H25.11 Active confirmed 067729867312495 Problem Abnormal MRI, lumbar spine R93.7 Active confirmed 673287638 Problem Anemia, unspecified type D64.9 Active confirmed 680443450 ALLERGIES No Known Allergies ENCOUNTERS from 1960 to 2021-02-12 Encounter [facility] Date [facility] [phone] [place] [address] Jan, Gerri Servage Essential (primary) hyperten ashley I10 ; Age-related nuclear cataract, right eye H25.11 ; Alcohol abuse F10.10 ; Tobacco abuse Z72.0 ; Abnormal MRI, lumbar spine R93.7 and Anemia, unspecified type D64.9 IMMUNIZATIONS Vaccine Route Administration Date Status Pneumococcal [...] Notes Total Score: 15 Interpretation: Simple Advice Synagogue: Question Answer Notes Synagogue No hindu beliefs that would impact health care. Sexual [...] No Information VITAL SIGNS Weight 154 lbs Jan, Weight-kg 69.85 kg Jan, Height 5'10" in Jan, BMI 22.09 kg/m2 Jan, Heart Rate 64 /min Jan, Respiratory Rate 18 /min Jan, Temperature 97.9 degrees Fahrenheit Jan, Oximetry 100 Jan, Blood pressure systolic 136 mm Hg Jan, Blood pressure diastolic 72 mm Hg Jan, MEDICATIONS Medication SIG (Take, Route, Frequency, Duration) Notes Start Da te End Date Status Lisinopril 5 MG 1 tablet Orally Once a day Active Magnesium Oxide 400 MG 1 tablet Orally Once a day for 90 days Active Norvasc 5 MG 1 tablet Orally Once a day for 90 days Active PROCEDURES from 1960 to 2021-02-12 Procedure Date Ordered Result Body Site ELECTROCARDIOGRAM, COMPLETE EKG 2021-02-11 N/A RESULTS No Results REASON FOR VISIT Dr Gu, [facility], cataract sx OD, 02/17/21 MEDICAL (GENERAL) HISTORY Type Description Date Medical History posttraumatic muscle contrac ture following an injury, involving right hand, fingers, wrist, shoulder initially treated with Dr. Sheets, Dr. Garcia 2012, patient has declined physical therapy will return to Dr. Sheets Medical History decreased hearing referred for hearing e valuation refused Medical History essential hypertension Medical History abnormal liver functions kathryn er ultrasound 06/20/2014 negative Alcohol abuse Medical History chronic plaque psoriasis Medical History tick bite January 2014, titer negative Medical History streptococcal pneumonia 10/22 with bacteremia positive streptococcal urine antigen Medical History 11/23/2016, echocardiogram, LVEF 75%, normal left ventricular size, wall thickness, hyperkinetic wall motion. Subtle aortic valvular sclerosis without stenosis and only trace insufficiency. Medical History alcohol abuse Medical History COPD Medical History depression Medical History Normocytic anemia, mild leukopenia, with lymphopenia 11/28/2020. Medical History hyponatremia Medical History history of adenomatous colonic polyps Medical History smoker Medical History January 24, 2021 oncology h ematology work-up. No specific hematological problem at this time,thru work up work-up Medical History MRI lumbar spine 11/19/2020 s everely heterogeneous bone marrow considered nonspecific but seem to possibly represent anemia of chronic disease, red marrow reconversion, or marrow replacement process, biopsy 01/15/2021 unremarkable with no signs of plasma cell dyscrasia, multiple myeloma, or metastatic cancer. Surgical History Right shoulder repair 2001 Surgical History skin graft & right hand repair [address] Torres, 3-6 polyps descending colon return fragment of tubular adenoma 06/15/14 Surgical History colonoscopy, suboptimal prep aration, repeat colonoscopy in 2 years. Due July 2019-08/05/2017 Hospitalization History [facility]-Left lower lobe pneumonia 11/02- Hospitalization History alcohol detox/rehabilitation 08/2019 Hospitalization History cellulitis left foot 09/07/20 Goals Section No Information Health Concerns No Information MEDICAL EQUIPMENT No Information MENTAL STATUS No Information FUNCTIONAL STATUS No Information ASSESSMENTS Encounter Date Diagnosis Assessment Notes Treatment Notes Treatm ent Clinical Notes Jan, Essential (primary) hypertension (ICD-10 - I10) Blood pressure meets goal Jan, Age-related nuclear cataract, right eye (ICD-10 - H25.11) I discussed the risks vs. benefits of surgery with the patient in generic terms. I feel that the patient is at very low risk average risk for perioperative complications per Mirza Criteria Revised Cardiac Risk Index for Pre-Operative Risk is 0.4% The patient knows that there is always some risk with surgery and that each individual has to make a decision regarding whether the benefits of surgery outweigh the risks in order to proceed. I advised the patient to direct further questions regarding the specifics of the proposed surgical procedure and specific risks to the surgeon. At this time I feel that the patient''s acute and chronic medical conditions are sufficiently optimized. I have also recommended the patient stop all medications as recommended by their surgeon and anesthesiologist . EKG reviewed normal sinus rhythm with first-degree AV block incomplete right bundle branch block consider prior anterior wall [place] no change versus 2020. Jan, Alcohol abuse (ICD-10 - F10.10) Patient has been encouraged to quit drinking Jan, Tobacco abuse (ICD-10 - Z72.0) Patient has been encouraged to quit smoking Jan, Abnormal MRI, lumbar spine (ICD-10 - R93.7) Per oncology notes severely heterogeneous bone marrow, nonspecific, could represent anemia of chronic disease, red marrow reconversion or a marrow replacement process such as metastatic disease, myeloma, or lymphoma. Bone marrow biopsy was performed 01/15/2021, unremarkable with no sign of plasma cell dyscrasia, multiple myeloma or metastatic cancer, per preliminary report Jan, Anemia, unspecified type (ICD-10 - D64.9) Mild leukopenia with lymphopenia, normocytic anemia, iron studies indicated adequate iron stores with low soluble transferrin receptor suggestive of anemia of chronic disease. PLAN OF TREATMENT Medication Medication Name Sig Start Date Stop Date Lisinopril 5 MG 1 tablet Orally Once a day Norvasc 5 MG 1 tablet Orally Once a day for 90 days Treatment Notes Assessment Notes Clinical Notes Essential (primary) hypertension Blood p ressure meets goal Age-related nuclear cataract, right eye I discussed the risks vs. benefits of surgery with the patient in generic terms. I feel that the patient is at very low risk average risk for perioperative complications per Mirza CriteriaRevised Cardiac Risk Index for Pre-Operative Risk is 0.4%The patient knows that there is always some risk with surgery and that each individual has to make a decision regarding whether the benefits of surgery outweigh the risks in order to proceed. I advised the patient to direct further questions regarding the specifics of the proposed surgical procedure and specific risks to the surgeon.At this time I feel that the patient''s acute and chronic medical conditions are sufficiently optimized.I have also recommended the patient stop all medications as recommended by their surgeon and anesthesiologist .EKG reviewed normal sinus rhythm with first-degree AV block incomplete right bundle branch block consider prior anterior wall [place] no change versus 2020. Alcohol abuse Patient has been enc ouraged to quit drinking Tobacco abuse Patient has been enc ouraged to quit smoking Abnormal MRI, lumbar spine Per oncology notes severely heterogeneous bone marrow, nonspecific, could represent anemia of chronic disease, red marrow reconversion or a marrow replacement process such as metastatic disease, myeloma , or lymphoma. Bone marrow biopsy was performed 01/15/2021, unremarkable with no sign of plasma cell dyscrasia, multiple myeloma or metastatic cancer, per preliminary report Anemia, unspecified type Mild leukopenia with lymphopenia, normocytic anemia, iron studies indicated adequate iron stores with low soluble transferrin receptor suggestive of anemia of chronic disease. Next Appt Details Gerri May 2021 routine visit Reason : Provider Name:Debo Cortes, 01:00:00 PM, [address] [place] [address], , [place], [address], Provider Name:Gerribridgette Estrella, 03:00:00 PM, [facility], , [place], [address], Insurance Providers Payer Name Payer Address Payer Phone Insured Name Patient Relati onship to Insured Coverage Start Date Coverage End Date MEDICAID [employer] [address] [facility] [address] KELL MARTINEZ self UMR [employer] [address] [id number] [facility] [id number] KELL MARTINEZ [id number]
--- OUTSIDE RECORDS SUMMARY | 2021-03-17 09:18 | CCD | Summary of Care ---
Author Author [facility] Address Unknown Phone Unavailable Care Team Providers Care Thermal Engineer Name Role Phone PCP Unavailable Encounter Details Care Team Description Date Type Department 01/15/2021 [facility] Clinical Encounter Pathology at [address] [address] Allergies Not on Filedocumented as of this encounter (statuses as of 01/17/2021) Medications Not on filedocumented as of this encounter (statuses as of 01/17/2021) Active Problems Not on filedocumented as of this encounter (statuses as of 01/17/2021) Social History Date Tobacco Use Types Packs/Day Years Used Never Assessed Sex Assigned at Date Recorded Not on file documented as of this encounter Last Filed Vital Signs Not on filedocumented in this encounter Plan of Treatment Date/Time Name Type Priority Associated Diag noses 01/16/2021 1:47 PM EDT Hematopathology Pathology and Routine Cytology 01/16/2021 2:30 PM EDT [facility] Oncology, Pathology and Routine Blood and Bone Marrow Cytology Order Schedule Name Type Priority Associated Diag noses Once for 1 Occurrences starting 01/16/20 21 until 01/15/2021 Hematopathology Pathology and Routine Cytology Once for 1 Occurrences starting 01/16/20 21 until 01/15/2021 [facility] Oncology, Pathology and Routine Blood and Bone Marrow Cytology Health Maintenance Due Date Last Done Comments Hepatitis C Screening (B. 1960 [id number]) MMR Vaccines (1 of 1 - 09/11/1959 Standard series) Varicella Vaccines (1 of 09[birth year]11/1959 2 - 2-dose childhood series) DTaP,Tdap,and Td Vaccines 1965 (1 - Tdap) HIV Screening 09/11/1971 Colon Cancer Screening 10 2008 yrs Zoster Vaccines (1 of 2) 2008 Influenza Vaccine 02/21/2021 Pneumococcal Vaccine: 65+ 09/11/2023 Years (1 of 1 - PPSV23) HIB Vaccines Aged Out No longer eligible based on patient's age to complete this topic Hepatitis A Vaccines Aged Out No longer eligibl e based on patient's age to complete this topic Hepatitis B Vaccines Aged Out No longer eligibl e based on patient's age to complete this topic IPV Vaccines Aged Out No longer eligible based on patient's age to complete this topic Pneumococcal Vaccine: Aged Out No longer eligib le based on patient's age to Pediatrics (0 to 5 Years) complete this topic and At-Risk Patients (6 to 64 Years) documented as of this encounter Results Not on filedocumented in this encounter
--- OUTSIDE RECORDS SUMMARY | 2021-03-17 09:18 | CCD | Continuity of Care Document ---
Author Author Saleem TATUM MD Organization Unknown Address [address] [place] [address], [address] [address] Phone [phone] Care Team Providers Care Track Supervisor Name Role Phone Gerri Estrella AUTM [phone] Problems Active Problems Provider Date Essential hypertension [...] Available Vital Signs Date Vital Result Comment 09/09/2020 1:38pm Body Temperature 97.5 F Height 68.5 inches 5'8.50" Weight 153.12 lb BMI (Body Mass Index) 22.9 kg/m2 Results Test Acquired Date Facility Test Result H/L Range Note Laboratory test finding 11/28/2020 [facility] [address] [place] [address] (128)- - Erythrocyte Sedimentation Rate 36 mm/hr High 0-20 C Reactive Protein Quantitativ < 0.30 mg/dL Normal 0.00-0.30 Blood Culture No growth after <SEE NOTE> 1 Laboratory test finding 11/15/2020 [facility] [address] [place] [address] (315)- - Blood Urea Nitrogen 9 mg/dL Normal 7-18 Creatinine With GFR 11/15/2020 [facility] [address] [place] [address] (315)- - Creatinine For GFR 0.68 mg/dL Low 0.70-1.30 Glomerular Filtration Rate > 60.0 Normal >49 2 Laboratory test finding 11/15/2020 [facility] [address] [place] [address] (315)- - Erythrocyte Sedimentation Rate 48 mm/hr High 0-20 C Reactive Protein Quantitativ 0.38 mg/dL High 0.00-0.30 Culture Blood 11/15/2020 [facility] [address] [place] [address] (315)- - Fungal Culture Blood Testing performe <SEE NOTE> 3 Antinuclear Antibodies 11/15/2020 [facility] [address] [place] [address] (315)- - Antinuclear Antibodies Direct Negative Normal Negati ve 4 Laboratory test finding 11/15/2020 [facility] [address] [place] [address] (315)- - Rheumatoid Factor Quant < 10.0 [...] Little GFR Left ESRD GFR <15 on DISEASE AND INSECT CONTROL BOSS 3 Testing performed at [facility] . Report copy to follow on a separate form. 12/19/20 REF LAB#:[id number] FUNGUS CULTURE [facility] No Yeast or Mold Isolated after 4 weeks. 4 Performed at: RN - [facility] [address] [id number] Mechanic Field Service: So Ridley MD, Phone: [phone] Procedures Date Code Description Status 11/26/2020 51103 Office/Outpatient Established Mo d MDM 30-39 Min Completed 11/26/2020 58695 Nerve Conduction 7-8 Studies Com pleted 11/26/2020 12649 Needle Electromyography,Complete Five Or More Muscles Studied Completed 11/12/2020 77108 Office/Outpatient Established Mo d MDM 30-39 Min Completed 09/30/2020 89351 Office/Outpatient New Moderate M DM 45-59 Minutes Completed 09/09/2020 48487 Office/Outpatient New Moderate M DM 45-59 Minutes Completed 09/09/2020 41874 X-Ray Spine Lumbosacral Complete W/Oblique 4 Views Completed Medical Devices Description No Information Available Encounters Type Date Location Provider Dx Diagnosis Office Visit 11/26/2020 2:30p Reena Tatum MD M51.26 Other intervertebral disc displacement, lumbar region M51.36 Other intervertebral disc de generation, lumbar region M48.061 Spinal stenosis, lumbar tonio on without neurogenic judit M70.61 Trochanteric bursitis, right hip Office Visit 11/12/2020 1:40p [place] M70.61 Trochanteric bursitis, right hip M51.26 Other intervertebral disc di splacement, lumbar region M51.36 Other intervertebral disc de generation, lumbar region M48.061 Spinal stenosis, lumbar tonio on without neurogenic judit Office Visit 09/30/2020 4:15p [place] M51.26 Other intervertebral disc displacement, lumbar region M51.36 Other intervertebral disc de generation, lumbar region M43.16 Spondylolisthesis, lumbar re gion M48.061 Spinal stenosis, lumbar tonio on without neurogenic judit Office Visit 09/09/2020 1:15p [place] MD M16.11 Unilateral primary osteoarthritis, right hip M54.5 Low back pain Assessments Date Code Description Provider 11/26/2020 M51.26 Other intervertebral disc displa cement, [...] pain Brad Garcia MD Plan of Treatment Future Appointment(s):* 12/24/2020 2:00 pm - Jimmie Tatum MD at [place] 11/26/2020 - Jimmie Tatum MD* M51.26 Other intervertebral disc displacement, lumbar region * M51.36 Other intervertebral disc degeneration, lumbar region * M48.061 Spinal stenosis, lumbar region without neurogenic claudication * M70.61 Trochanteric bursitis, right hip Functional Status Description No Information Available Mental Status Description No Information Available Referrals Refer to Dr Reason for Referral Status Appt Date Brad Garcia MD MRI APPROVED PER MARLENY Bueno FOR MRI OF RIGHT HIP W/ & W/O (22498) TO YONAS Griggs [address] [place], [place] [address] [phone] Brad Garcia MD EMG NO AUTH REQUIRED TO SCHEDULING NT Creat ed [address] [place] [phone] Brad Garcia MD BONE SCAN ([id number]) NO AUTH RE QUIRED PER LAZARA TO YONAS [facility] WILLSON Created [address] [place] [address] [phone] Brad Garcia MD MRI APPROVED PER MEDICAID FO R MRI OF LUMBAR SPINE W/ & W/O (30168) TO YONAS BermeoAby WILLSON Created [address] [place] [address] [phone] Brad Garcia MD BONE SCAN ([id number]) NO AUTH RE QUIRED PER DENAE Ortiz TO YONAS [facility]ermeoA[facility] WILLSON Created [address] [place] [address] [phone] Brad Garcia MD MRI APPROVED PER MARLENY EAby FOR MRI LUMBAR SPINE W/ & W/O (78264) TO YONAS WILLSON Created [address] [place] [address] [phone] Brad Garcia MD MRI APPROVED PER MARLENY EAby FOR MRI OF LUMBAR SPINE (58611) TO YONAS BermeoAby WILLSON Created [address] [place] [address] [phone]
--- OUTSIDE RECORDS SUMMARY | 2021-03-17 09:18 | CCD | Continuity of Care Document ---
Author Author Saleem TATUM MD Organization Unknown Address [address] [place] [address] Phone [phone] Care Team Providers Care Talent Consultant Name Role Phone Gerri Estrella AUTM [phone] Problems Active Problems Provider Date Essential hypertension [...] H/L Range Note Laboratory test finding 11/28/2020 [facility] [address] [place] [address] (883)- - Erythrocyte Sedimentation Rate 36 mm/hr High 0-20 C Reactive Protein Quantitativ < 0.30 mg/dL Normal 0.00-0.30 Blood Culture No growth after <SEE NOTE> 1 Laboratory test finding 11/15/2020 [facility] [address] [place] [address] (315)- - Blood Urea Nitrogen 9 mg/dL Normal 7-18 Creatinine With GFR 11/15/2020 [facility] [address] [place] [address] (315)- - Creatinine For GFR 0.68 mg/dL Low 0.70-1.30 Glomerular Filtration Rate > 60.0 Normal >49 2 Laboratory test finding 11/15/2020 [facility] [address] [place] [address] (315)- - Erythrocyte Sedimentation Rate 48 mm/hr High 0-20 C Reactive Protein Quantitativ 0.38 mg/dL High 0.00-0.30 Culture Blood 11/15/2020 [facility] [address] [place] [address] (315)- - Fungal Culture Blood Testing performe <SEE NOTE> 3 Antinuclear Antibodies 11/15/2020 [facility] [address] [place] [address] (315)- - Antinuclear Antibodies Direct Negative Normal Negati ve 4 Laboratory test finding 11/15/2020 [facility] [address] [place] [address] (315)- - Rheumatoid Factor Quant < 10.0 [...] Little GFR Left ESRD GFR <15 on PARLIAMENTARY LIBRARIAN 3 Testing performed at [facility] . Report copy to follow on a separate form. 12/19/20 REF LAB#:[id number] FUNGUS CULTURE [facility] No Yeast or Mold Isolated after 4 weeks. 4 Performed at: - [facility] [address] [id number] Motor Grader Operator: So Ridley MD, Phone: [phone] Procedures Date Code Description Status 12/24/2020 33340 Office/Outpatient Established Hi gh MDM 40-54 Min Completed 11/26/2020 79157 Office/Outpatient Established Mo d MDM 30-39 Min Completed 11/26/2020 88276 Nerve Conduction 7-8 Studies Com pleted 11/26/2020 01977 Needle Electromyography,Complete Five Or More Muscles Studied Completed 11/12/2020 39585 Office/Outpatient Established Mo d MDM 30-39 Min Completed 09/30/2020 23517 Office/Outpatient New Moderate M DM 45-59 Minutes Completed 09/09/2020 00589 Office/Outpatient New Moderate M DM 45-59 Minutes Completed 09/09/2020 88202 X-Ray Spine Lumbosacral Complete W/Oblique 4 Views Completed Medical Devices Description No Information Available Encounters Type Date Location Provider Dx Diagnosis Office Visit 12/24/2020 2:00p Reena Tatum MD M16.0 Bilateral primary osteoarthritis of hip M70.61 Trochanteric bursitis, right hip M70.62 Trochanteric bursitis, left hip M51.26 Other intervertebral disc di splacement, lumbar region M51.36 Other intervertebral disc de generation, lumbar region M48.061 Spinal stenosis, lumbar tonio on without neurogenic judit Office Visit 11/26/2020 2:30p Reena Tatum MD [...] without neurogenic judit Office Visit 09/09/2020 1:15p [place] Brad Garcia MD M16.11 Unilateral primary osteoarthritis, right [...] Description No Information Available Referrals Refer to Reason for Referral Status Appt Date Brad Garcia MD Physical Therapy Lumbar R Hi p, per Johanna [facility]jas at [facility] no auth req, after 25 visits call for pre d, patient has 25 dollar co pay, patient is going to [facility] passed to pt dept sw. Created [address] [place] [address] [phone] Brad Garcia MD MRI APPROVED PER MARLENY Bueno FOR MRI OF RIGHT HIP W/ & W/O (84541) TO YONAS WILLSON Created [address] [place] [phone] Brad Garcia MD EMG NO AUTH REQUIRED TO SCHEDULING NT Creat ed [address] [place] [address] [phone] Brad Garcia MD BONE SCAN ([id number]) NO AUTH RE QUIRED PER LAZARA TO YONAS WILLSON Created [address] [place] [address] [phone] Brad Garcia MD MRI APPROVED PER MEDICAID FO R MRI OF LUMBAR SPINE W/ & W/O (11902) TO YONAS WILLSON Created [address] [place] [phone] Brad Garcia MD BONE SCAN ([id number]) NO AUTH RE QUIRED PER DENAE Ortiz TO YONAS WILLSON Created [address] [place], [place] [phone] Brad Garcia MD MRI APPROVED PER MARLENY Bueno FOR MRI LUMBAR SPINE W/ & W/O (90899) TO YONAS WILLSON Created [address] [place] [phone] Brad Garcia MD MRI APPROVED PER MARLENY EAby FOR MRI OF LUMBAR SPINE (42136) TO YONAS WILLSON Created [address] [place] [phone] [phone]
--- OUTSIDE RECORDS SUMMARY | 2021-03-17 09:18 | CCD ---
Author Author [facility] Organization [facility] Address Unknown Phone Unavailable Care Team Providers Care Optical Worker Name Role Phone Gerri Estrella Unavailable PROBLEMS Type Condition ICD9-CM Code [id number] Code Onset Dates Condition S tatus W/U Status Risk SNOMED Code Notes Problem Tobacco abuse Z72.0 Active confirmed 211665 05 Problem Anemia D64.9 Active confirmed 521258022 Problem Hx of adenomatous colonic polyps Z86.010 Active confirmed 948532072 Problem Psoriasis L40.9 Active confirmed 4635072 Problem Traumatic ischemia of muscle, initial encounter T7 9.6XXA Active confirmed 223678828 Problem Essential (primary) hypertension I10 Active conf irmed 75881498 Controlled right now on lisinopril and amlodipine Problem Hyponatremia E87.1 Active confirmed 9913289 8 Problem Moderate depressive disorder F32.9 Active confirme d 824568515 Problem 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 Active confirmed 1364 5005 Problem DDD (degenerative disc disease), lumbar M51.36 Active confirmed 88176494 Problem Alcohol abuse F10.10 Active confirmed 398178 05 I encouraged can to try to go to some meetings, and to establish with a counselor, but he is resistant Problem Elevated erythrocyte sedimentation rate R70.0 Active confirmed 673462245 Problem Liver enzyme elevation R74.8 Active confirmed 389823269 Problem Other chronic pain G89.29 Active confirmed 8 8504973 Problem Age-related nuclear cataract, right eye H25.11 Active confirmed 677796240962577 Problem Abnormal MRI, lumbar spine R93.7 Active confirmed 670207564 Problem Anemia, unspecified type D64.9 Active confirmed 832741123 ALLERGIES No Known Allergies ENCOUNTERS from 1960 to 2021-02-15 Encounter Location Date [facility] [phone] [place] [address] Jan, Gerir Servage Essential (primary) hyperten ashley I10 ; [...] Notes Total Score: 15 Interpretation: Simple Advice Bahai: Question Answer Notes Bahai No orthodoxy beliefs that would impact health care. Sexual [...] Notes Start Da te End Date Status Norvasc 5 MG 1 tablet Orally Once a day for 90 days Active Magnesium Oxide 400 MG TAKE ONE TABLET BY MOUTH EVERY DAY for 90 Active Lisinopril 5 MG TAKE ONE TABLET BY MOUTH EVERY DAY for 90 Active PROCEDURES from 1960 to 2021-02-15 Procedure Date Ordered Result Body Site ELECTROCARDIOGRAM, COMPLETE EKG 2021-02-11 N/A RESULTS No Results REASON FOR VISIT Dr Gu, [facility], cataract sx OD, 02/17/21 MEDICAL (GENERAL) [...] 2 years. Due July 2019-08/05/2017 Hospitalization History [facility]-Left lower lobe pneumonia 11/02- Hospitalization History [...] bundle branch block consider prior anterior wall ND no change versus 2020. Jan, Alcohol abuse [...] Medication Name Sig Start Date Stop Date Norvasc 5 MG 1 tablet Orally Once a day for 90 days Lisinopril 5 MG TAKE ONE TABLET BY MOUTH EVERY DAY for 90 Magnesium Oxide 400 MG TAKE ONE TABLET BY MOUTH EVERY DAY for 90 Treatment Notes Assessment Notes Clinical Notes Essential [...] bundle branch block consider prior anterior wall ND no change versus 2020. Alcohol abuse Patient [...] Reason : Provider Name:Debo Cortes, 01:00:00 PM, [address] [place] [address], , [place], [address], Provider Name:Gerri Estrella, 03:00:00 PM, [facility] [phone], [place], [address], Insurance Providers Payer Name Payer Address Payer Phone Insured Name Patient Relati onship to Insured Coverage Start Date Coverage End Date MEDICAID [employer] [address] [facility] [address] KE[address]INE[address] [facility] [address] [address] [facility] [id number] KELL MARTINEZ [id number]
--- OUTSIDE RECORDS SUMMARY | 2021-03-17 09:18 | CCD ---
Author Author [facility] Organization [facility] Address Unknown Phone Unavailable Care Team Providers Care Concrete Saw Operator Name Role Phone Gerri Estrella Unavailable PROBLEMS Type Condition ICD9-CM Code [id number] Code Onset Dates Condition S tatus W/U Status Risk SNOMED Code Notes Problem Tobacco abuse Z72.0 Active confirmed 103088 05 Problem Anemia D64.9 Active confirmed 784125447 Problem Hx of adenomatous colonic polyps Z86.010 Active confirmed 342740151 Problem Psoriasis L40.9 Active confirmed 0876439 Problem Traumatic ischemia of muscle, initial encounter T7 9.6XXA Active confirmed 481101965 Problem Essential (primary) hypertension I10 Active conf irmed 04056071 Controlled right now on lisinopril and amlodipine Problem Hyponatremia E87.1 Active confirmed 7695359 8 Problem Moderate depressive disorder F32.9 Active confirme d 718279381 Problem 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 Active confirmed 1364 5005 Problem DDD (degenerative disc disease), lumbar M51.36 Active confirmed 58819636 Problem Alcohol abuse F10.10 Active confirmed 032155 05 I encouraged can to try to go to some meetings, and to establish with a counselor, but he is resistant Problem Elevated erythrocyte sedimentation rate R70.0 Active confirmed 299567546 Problem Liver enzyme elevation R74.8 Active confirmed 665465813 Problem Other chronic pain G89.29 Active confirmed 8 8999462 Problem Age-related nuclear cataract, right eye H25.11 Active confirmed 816889640289149 Problem Abnormal MRI, lumbar spine R93.7 Active confirmed 231380066 Problem Anemia, unspecified type D64.9 Active confirmed 006137470 ALLERGIES No Known Allergies ENCOUNTERS from 1960 to 2021-02-13 Encounter Location Date Provider [facility] [phone] [place] [address] Jan, Gerri Servage Essential (primary) hyperten ashley I10 IMMUNIZATIONS Vaccine Route Administration Date Status [...] Advice Synagogue: Question Answer Notes Synagogue No baptist beliefs that would impact health care. Sexual [...] REASON FOR REFERRAL No Information VITAL SIGNS No information MEDICATIONS Medication SIG (Take, Route, Frequency, Duration) Notes Start Da te End Date Status Norvasc 5 MG 1 tablet Orally Once a day for 90 days Active Magnesium Oxide 400 MG TAKE ONE TABLET BY MOUTH EVERY DAY for 90 Active Lisinopril 5 MG TAKE ONE TABLET BY MOUTH EVERY DAY for 90 Active PROCEDURES No Information RESULTS No Results REASON FOR VISIT refill MEDICAL (GENERAL) HISTORY Type Description Date Medical [...] Jan, Essential (primary) hypertension (ICD-10 - I10) PLAN OF TREATMENT Medication Medication Name Sig Start Date Stop Date Norvasc 5 MG 1 tablet Orally Once a day for 90 days Lisinopril 5 MG TAKE ONE TABLET BY MOUTH EVERY DAY for 90 Magnesium Oxide 400 MG TAKE ONE TABLET BY MOUTH EVERY DAY for 90 Next Appt Details Provider Name:Debo Cortes, 01:00:00 PM, [address] [facility], , [place], [address], Provider Name:Gerri Estrella, 03:00:00 PM, [address] [facility], , [place], [address], Insurance Providers Payer Name Payer Address Payer Phone Insured Name Patient Relati onship to Insured Coverage Start Date Coverage End Date [facility] [address] [id number] [facility] [id number] KELL MARTINEZ [id number] MEDICAID [employer] [address] [facility] [id number] KELL MARTINEZ self
--- OUTSIDE RECORDS SUMMARY | 2021-03-17 09:19 | CCD ---
Author Author [facility] Organization [facility] Address Unknown Phone Unavailable Care Team Providers Care Communications Maintainer Name Role Phone Agustin, Jimmie Unavailable Unavailable Agustin, Jimmie Unavailable Unavailable Agustin, Jimmie Unavailable Unavailable Agustin, Jimmie Unavailable Unavailable Agustin, Jimmie Unavailable Unavailable Agustin, Jimmie Unavailable Unavailable Agustin, Jimmie Unavailable Unavailable Agustin, Jimmie Unavailable Unavailable Agustin, Jimmie Unavailable Unavailable Agustin, Jimmie Unavailable Unavailable Agustin, Jimmie Unavailable Unavailable Agustin, Jimmie Unavailable Unavailable Agustin, Jimmie Unavailable Unavailable Agustin, Jimmie Unavailable Unavailable Agustin, Jimmie Unavailable Unavailable Agustin, Jimmie Unavailable Unavailable Agustin, Jimmie Unavailable Unavailable Agustin, Jimmie Unavailable Unavailable Agustin, Jimmie Unavailable Unavailable Agustin, Jimmie Unavailable Unavailable Agustin, Jimmie Unavailable Unavailable Agustin, Jimmie Unavailable Unavailable Agustin, Jimmie Unavailable Unavailable Agustin, Jimmie Unavailable Unavailable Agustin, Jimmie Unavailable Unavailable Agustin, Jimmie Unavailable Unavailable Agustin, Jimmie Unavailable Unavailable Agustin, Jimmie Unavailable Unavailable Agustin, Jimmie Unavailable Unavailable Agustin, Jimmie Unavailable Unavailable Agustin, Jimmie Unavailable Unavailable Agustin, Jimmie Unavailable Unavailable Agustin, Jimmie Unavailable Unavailable Agustin, Jimmie Unavailable Unavailable Agustin, Jimmie Unavailable Unavailable Agustin, Jimmie Unavailable Unavailable Agustin, Jimmie Unavailable Unavailable Agustin, Jimmie Unavailable Unavailable Agustin, Jimmie Unavailable Unavailable Agustin, Jimmie Unavailable Unavailable Agustin, Jimmie Unavailable Unavailable Agustin, Jimmie Unavailable Unavailable Agustin, Jimmie Unavailable Unavailable Agustin, Jimmie Unavailable Unavailable Agustin, Jimmie Unavailable Unavailable Fish, B Brad GUERRA Unavailable Unavailable Fish, B Brad GUERRA Unavailable Unavailable Fish, B Brad GUERRA Unavailable Unavailable Fish, B Brad GUERRA Unavailable Unavailable Fish, B Brad GEURRA Unavailable Unavailable Fish, B Brad GUERRA Unavailable Unavailable Fish, B Brad GUERRA Unavailable Unavailable Fish, B Brad GUERRA Unavailable Unavailable Fish, B Brad GUERRA Unavailable Unavailable Fish, B Brad GUERRA Unavailable Unavailable Fish, Adiel Salinas MD Unavailable Unavailable Fish, B Brad GUERRA Unavailable Unavailable Fish, B Brad GUERRA Unavailable Unavailable Fish, B Brad GUERRA Unavailable Unavailable Fish, B Brad GUERRA Unavailable Unavailable Fish, B Brad GUERRA Unavailable Unavailable Fish, B Brad GUERRA Unavailable Unavailable Fish, B Brad GUERRA Unavailable Unavailable Fish, B Brad GUERRA Unavailable Unavailable Fish, B Brad GUERRA Unavailable Unavailable Fish, B Brad GUERRA Unavailable Unavailable Fish, B Brad GUERRA Unavailable Unavailable Fish, B Brad GUERRA Unavailable Unavailable Fish, B Brad GUERRA Unavailable Unavailable Fish, B Brad GUERRA Unavailable Unavailable Fish, B Brad GUERRA Unavailable Unavailable Fish, B Brad GUERRA Unavailable Unavailable Fish, B Brad GUERRA Unavailable Unavailable Fish, B Brad GUERRA Unavailable Unavailable Fish, B Brad GUERRA Unavailable Unavailable Fish, B Brad GUERRA Unavailable Unavailable Fish, B Brad GUERRA Unavailable Unavailable Fish, B Brad GUERRA Unavailable Unavailable Fish, B Brad GUERRA Unavailable Unavailable Fish, B Brad GUERRA Unavailable Unavailable Fish, B Brad GUERAR Unavailable Unavailable Fish, B Brad GUERRA Unavailable Unavailable Fish, B Brad GUERRA Unavailable Unavailable Fish, B Brad GUERRA Unavailable Unavailable Fish, B Brad GUERRA Unavailable Unavailable Fish, B Brad GUERRA Unavailable Unavailable Fish, B Brad GUERRA Unavailable Unavailable Fish, B Brad GUERRA Unavailable Unavailable Fish, B Brad GUERRA Unavailable Unavailable Fish, B Brad GUERRA Unavailable Unavailable Fish, B Brad GUERRA Unavailable Unavailable Fish, B Brad GUERRA Unavailable Unavailable Fish, B Brad GUERRA Unavailable Unavailable Fish, B Brad GUERRA Unavailable Unavailable Fish, B Brad GUERRA Unavailable Unavailable Fish, B Brad GUERRA Unavailable Unavailable Fish, B Brad GUERRA Unavailable Unavailable Fish, B Brad GUERRA Unavailable Unavailable Fish, B Brad GUERRA Unavailable Unavailable Fish, B Brad GUERRA Unavailable Unavailable Fish, B Brad GUERRA Unavailable Unavailable Jermaine, G Duglas Unavailable Unavailable Fish, B Brad GUERRA Unavailable Unavailable Fish, B Brad GUERRA Unavailable Unavailable Fish, B Brad GUERRA Unavailable Unavailable Fish, B Brad GUERRA Unavailable Unavailable Fish, B Brad GUERRA Unavailable Unavailable Fish, B Bard GUERRA Unavailable Unavailable Fish, B Brad GUERRA Unavailable Unavailable Fish, B Brad GUERRA Unavailable Unavailable Fish, B Brad GUERRA Unavailable Unavailable Fish, B Brad GUERRA Unavailable Unavailable Fish, B Brad GUERRA Unavailable Unavailable Fish, B Brad GUERRA Unavailable Unavailable Fish, B Brad GUERRA Unavailable Unavailable Fish, B Brad GUERRA Unavailable Unavailable Fish, B Brad GUERRA Unavailable Unavailable Fish, B Brad MD Unavailable Unavailable Fish, B Brad MD Unavailable Unavailable Fish, B Brad MD Unavailable Unavailable Fish, B Brad MD Unavailable Unavailable Fish, B Brad MD Unavailable Unavailable Fish, B Brad MD Unavailable Unavailable Fish, B Brad MD Unavailable Unavailable Fish, B Brad MD Unavailable Unavailable Fish, B Brad MD Unavailable Unavailable Fish, B Brad MD Unavailable Unavailable Fish, B Brad MD Unavailable Unavailable Fish, B Brad MD Unavailable Unavailable Fish, B Brad MD Unavailable Unavailable Fish, B Brad MD Unavailable Unavailable Fish, B Brad MD Unavailable Unavailable Fish, B Brad MD Unavailable Unavailable Fish, B Brad MD Unavailable Unavailable Fish, B Brad MD Unavailable Unavailable Fish, B Brad MD Unavailable Unavailable Fish, B Brad MD Unavailable Unavailable Fish, B Brad MD Unavailable Unavailable Fish, B Brad MD Unavailable Unavailable Fish, B Brad MD Unavailable Unavailable Fish, B Brad MD Unavailable Unavailable Fish, B Brad MD Unavailable Unavailable Fish, B Brad MD Unavailable Unavailable Fish, B Brad MD Unavailable Unavailable Fish, B Brad MD Unavailable Unavailable Fish, B Brad MD Unavailable Unavailable Fish, B Brad MD Unavailable Unavailable Fish, B Brad MD Unavailable Unavailable Fish, B Brad MD Unavailable Unavailable Fish, B Brad MD Unavailable Unavailable Fish, B Brad MD Unavailable Unavailable Fish, B Brad MD Unavailable Unavailable Fish, B Brad MD Unavailable Unavailable Fish, B Brad MD Unavailable Unavailable Fish, B Brad MD Unavailable Unavailable Fish, B Brad MD Unavailable Unavailable Fish, B Brad MD Unavailable Unavailable Fish, B Brad MD Unavailable Unavailable NON, PHYSICIAN STAFF Unavailable Unavailable Re-disclosure Warning The records that you are about to access may contain information from federally-assisted alcohol or drug abuse programs. If such information is present, then the following federally mandated warning applies: This information has been disclosed to you from records protected by federal confidentiality rules (42 CFR part 2). The federal rules prohibit you from making any further disclosure of this information unless further disclosure is expressly permitted by the written consent of the person to whom it pertains or as otherwise permitted by 42 CFR part 2. A general authorization for the release of medical or other information is NOT sufficient for this purpose. The Federal rules restrict any use of the information to criminally investigate or prosecute any alcohol or drug abuse patient.The records that you are about to access may contain highly sensitive health information, the redisclosure of which is protected by Article 27-F of the [facility] Public Health law. If you continue you may have access to information: Regarding HIV / AIDS; Provided by facilities licensed or operated by the [facility] Office of Mental Health; or Provided by the [facility] Office for People With Developmental Disabilities. If such information is present, then the following [facility] mandated warning applies: This information has been disclosed to you from confidential records which are protected by state law. State law prohibits you from making any further disclosure of this information without the specific written consent of the person to whom it pertains, or as otherwise permitted by law. Any unauthorized further disclosure in violation of state law may result in a fine or alf sentence or both. A general authorization for the release of medical or other information is NOT sufficient authorization for further disc losure. Family History Family Member Name Family Member Gender Family Member Status Date o f Status Description Data Source(s) Unknown Unknown Problem MEDENT ([facility], ) Encounters Encounter Providers Location Date Indications Data Source(s ) Unknown [address] [facility] [place] [address] 02/13/2021 12:00:00 AM EDT eCW1 (Formerly [facility]) Outpatient [address] [facility] [place] [address] 02/11/2021 12:00:00 AM EDT eCW1 ([facility]) Outpatient Admitter: Duglas Malinerrer: Duglas Dean 01/15/2021 12:00:00 AM EDT Anemia, unspecified [facility] Anemia, unspecified Outpatient Attender: Jimmie Agustin Physical Therapy 12/24/2020 02:00:0 0 PM EDT [facility] ([facility] ) Unknown [address] [facility] [place] [address] 12/12/2020 12:00:00 AM EDT eCW1 ([facility]) Outpatient [address] [facility] [place] [address] 11/28/2020 12:00:00 AM EDT eCW1 ([facility]) Unknown [address] [facility] [place] [address] 11/28/2020 12:00:00 AM EDT eCW1 ([facility]) Outpatient Attender: Jimmie Agustin Physical Therapy 11/26/2020 02:30:0 0 PM EDT [facility] ([facility]) [place]patient [address] [facility] [address] [place] [address] 11/13/2020 12:00:00 AM EDT eCW1 ([facility]) Outpatient Attender: Jimmie Agustin Physical Therapy 11/12/2020 01:40:0 0 PM EDT MEDENT ([facility]) Outpatient Attender: Jimmie Agustin Physical Therapy 09/30/2020 04:15:0 0 PM EDT MEDENT ([facility]) Outpatient Attender: Brad Garcia MDConsultant: STAFF NON 09/24/2020 01:14:00 PM EDT - 09/24/2020 02:14:00 PM EDT [facility] [address] [facility] [place] [address] 2020 12:00:00 AM EDT eCW1 ([facility]) Outpatient Attender: Brad Garcia MD Physical Therapy 09/09/2020 0 1:15:00 PM EDT [facility] ([facility]) Unknown [address] [facility] [address] [place] [address] 08/28/2020 12:00:00 AM EDT eCW1 ([facility]) Unknown [address] [facility] [address] [place] [address] 08/27/2020 12:00:00 AM EDT eCW1 ([facility]) Unknown [address] [facility] [place] [address] 02/28/2020 12:00:00 AM EDT eCW1 ([facility]) [place]patient [address] [facility] [place] [address] 02/27/2020 12:00:00 AM EDT eCW1 ([facility]) [place] [address] [facility] [address] [place] [address] 02/27/2020 12:00:00 AM EDT eCW1 ([facility]) Medications Medication Brand Name Start Date Product Form Dose Route Admi nistrative Instructions Pharmacy Instructions Status Indications Reaction Description Data Source(s) 400 mg (241.3 mg magnesium) 02/27/2021 12:00:00 AM EDT table t 90 TAKE ONE TABLET BY MOUTH EVERY DAY TAKE ONE TABLET BY MOUTH EVERY DAY SOLD: 03/05/2021 [facility] 5 mg 02/27/2021 12:00:00 AM EDT tablet 90 TAKE ONE TABLET BY MOUTH EVERY DAY TAKE ONE TABLET BY MOUTH EVERY DAY SOLD: 03/05/2021 [facility] 400 mg (241.3 mg magnesium) 02/13/2021 12:00:00 AM EDT table t 90 TAKE ONE TABLET BY MOUTH EVERY DAY TAKE ONE TABLET BY MOUTH EVERY DAY SOLD: 02/23/2021 [facility] 5 mg 02/12/2021 12:00:00 AM EDT tablet 90 TAKE ONE TABLET BY MOUTH EVERY DAY TAKE ONE TABLET BY MOUTH EVERY DAY SOLD: 02/12/2021 [facility] moxifloxacin 5 MG/ML Ophthalmic Solution 0.5 % MOXIFLOXACIN HCL 01/16/2021 12:00:00 AM EDT drops 3 APPLY 1 DROP INT O RIGHT EYE FOUR TIMES A DAY TO BEGIN THREE DAY PRIOR TO SURGERY APPLY 1 DROP INTO RIGHT EYE FOUR TIMES A DAY TO BEGIN THREE DAY PRIOR TO SURGERY SOLD: 02/23/2021 [facility] moxifloxacin 5 MG/ML Ophthalmic Solution 0.5 % MOXIFLOXACIN HCL 01/16/2021 12:00:00 AM EDT drops 3 APPLY 1 DROP INT O RIGHT EYE FOUR TIMES A DAY TO BEGIN THREE DAY PRIOR TO SURGERY APPLY 1 DROP INTO RIGHT EYE FOUR TIMES A DAY TO BEGIN THREE DAY PRIOR TO SURGERY SOLD: 01/20/2021 [facility] 0.6 % 01/15/2021 12:00:00 AM EDT drops,suspension 5 INSTILL 1 DROP IN THE RIGHT EYE FOUR TIMES A DAY BEGIN 3 DAYS PRIOR TO SURGERY INSTILL 1 DROP IN THE RIGHT EYE FOUR TIMES A DAY BEGIN 3 DAYS PRIOR TO SURGERY SOLD: 01/15/2021 [facility] 0.5 % 01/15/2021 12:00:00 AM EDT drops 5 INSTILL 1 DROP IN THE RIGHT EYE FOUR TIMES A DAY START 3 DAYS PRIOR TO SURGERY INSTILL 1 DROP IN THE RIGHT EYE FOUR TIMES A DAY START 3 DAYS PRIOR TO SURGERY SOLD: 01/15/2021 [facility] 0.5 % 01/15/2021 12:00:00 AM EDT drops 5 INSTILL 1 DROP IN THE RIGHT EYE FOUR TIMES A DAY START 3 DAYS PRIOR TO SURGERY INSTILL 1 DROP IN THE RIGHT EYE FOUR TIMES A DAY START 3 DAYS PRIOR TO SURGERY SOLD: 02/23/2021 [facility] 1 % 01/14/2021 12:00:00 AM EDT drops,suspension 15 INSTILL 1 DROP IN THE RIGHT EYE FOUR TIMES A DAY TO BE STARTED AFTER SURGERY INSTILL 1 DROP IN THE RIGHT EYE FOUR TIMES A DAY TO BE STARTED AFTER SURGERY SOLD: 01/15/2021 [facility] 1 % 01/14/2021 12:00:00 AM EDT drops,suspension 15 INSTILL 1 DROP IN THE RIGHT EYE FOUR TIMES A DAY TO BE STARTED AFTER SURGERY INSTILL 1 DROP IN THE RIGHT EYE FOUR TIMES A DAY TO BE STARTED AFTER SURGERY SOLD: 03/05/2021 [facility] 5 mg 09/11/2020 12:00:00 AM EDT tablet 90 TAKE ONE TABLET BY MOUTH EVERY DAY TAKE ONE TABLET BY MOUTH EVERY DAY SOLD: 12/18/2020 [facility] 5 mg 09/11/2020 12:00:00 AM EDT tablet 90 TAKE ONE TABLET BY MOUTH EVERY DAY TAKE ONE TABLET BY MOUTH EVERY DAY SOLD: 09/13/2020 [facility] 400 mg (241.3 mg magnesium) 2020 12:00:00 AM EDT table t 90 TAKE ONE TABLET BY MOUTH EVERY DAY TAKE ONE TABLET BY MOUTH EVERY DAY SOLD: 12/18/2020 [facility] 400 mg (241.3 mg magnesium) 2020 12:00:00 AM EDT table t 90 TAKE ONE TABLET BY MOUTH EVERY DAY TAKE ONE TABLET BY MOUTH EVERY DAY SOLD: 09/13/2020 [facility] 100 mg 09/08/2020 12:00:00 AM EDT capsule 10 TAKE ONE CAPSULE BY MOUTH EVERY 12 HOURS TAKE ONE CAPSULE BY MOUTH EVERY 12 HOURS SOLD: 09/08/2020 [facility] 5 mg 03/02/2020 12:00:00 AM EDT tablet 90 TAKE ONE TABLET BY MOUTH EVERY DAY TAKE ONE TABLET BY MOUTH EVERY DAY SOLD: 03/06/2020 [facility] 5 mg 12/14/2019 12:00:00 AM EDT tablet 90 TAKE ONE TABLET BY MOUTH EVERY DAY TAKE ONE TABLET BY MOUTH EVERY DAY SOLD: 03/06/2020 [facility] 400 mg (241.3 mg magnesium) 12/14/2019 12:00:00 AM EDT table t 90 TAKE ONE TABLET BY MOUTH EVERY DAY TAKE ONE TABLET BY MOUTH EVERY DAY SOLD: 03/06/2020 [facility] Insurance Providers Payer name Policy type / Coverage type Policy ID Covered alliance party ID Covered alliance party's relationship to patel Policy Patel Plan Information [facility] [id number] [facility] [id number] [facility] U [id number] Spouse [id number] MEDICAID [id number] Self [id number] [place] [id number] SP [id number] MEDICAID [id number] S [id number] [facility] [id number] H [id number] MEDICAID [id number] SP [id number] ANSI-Medicaid [id number] ANSI-Commercial [id number] ANSI-Commercial [id number] ANSI-Medicaid [id number] ANSI-Commercial [id number] ANSI-Commercial [id number] [place] [id number] SP [id number] P ANSI-Commercial [id number] ANSI-Commercial [id number] [facility] [id number] 2 [id number] [facility] [id number] [place] [id number] Medicaid [facility] Part B [id number] Self [id number] [facility] (HMO) [id number] Family Dependent [id number] [facility] [id number] [place] [id number] Medicaid [facility] Part [facility] [id number] Self [id number] [facility] (HMO) [id number] Family Dependent [id number] [facility] [id number] [place] [id number] MED[place] S [id number] S [id number] [facility] P[facility] P [id number] P [id number] [facility] P UNAVAILABLE [id number] P UNAVAILABLE ANSI-Medicaid [id number] [facility] [id number] [place] [id number] MEDICAID -O/[id number] R -O/P [id number] Problems, Conditions, and Diagnoses Code Display Name Description Problem Type Effective Dates Data Source(s) D64.9 Anemia, unspecified Anemia, unspecified Diagnosis 0 01/15/2021 10:15:00 AM EDT [facility] M5136 Other intervertebral disc degeneration, lumbar region Other intervertebral disc degeneration, lumbar region Diagnosis 09/24/2020 01:14:00 PM EDT [facility] M545 Low back pain Low back pain Diagnosis 09/24/2020 01:14:00 PM EDT [facility] H25.11 [id number] Age-related nuclear cataract, right ey e Problem 02/11/2021 12:00:00 AM EDT eCW ([facility]) D64.9 [id number] Anemia, unspecified type Problem 11/28/2020 12:00:00 AM EDT eC ([facility]) R93.7 [id number] Abnormal MRI, lumbar spine Problem 12:00:00 AM EDT [facility] ([facility]) R70.0 [id number] Elevated erythrocyte sedimentation rate P roblem 11/28/2020 12:00:00 AM EDT [facility] ([facility]) M51.36 [id number] DDD (degenerative disc disease), lumbar P roblem 11/28/2020 12:00:00 AM EDT eC ([facility]) G89.29 [id number] Other chronic pain Problem 11/13/2020 12:00: 00 AM EDT [facility] ([facility]) [id number] Essential hypertension Essential hypertension Problem 09/09/2020 12:00:00 AM EDT [facility] ([facility]) Surgeries/Procedures Procedure Description Date Indications Data Source(s) ECG ROUTINE ECG W/LEAST 12 LDS W/I&R 02/11/2021 12:00: 00 AM EDT [facility] ([facility]) OFFICE OUTPATIENT VISIT 40 MINUTES 12/24/2020 12:00:00 AM EDT [facility] Needle electromyography, each extremity, with related paraspinal areas, when performed, done with nerve conduction, amplitude and latency/velocity study; complete, five or more muscles studied, innervated by three or more nerves or four or more spinal levels (list separately in addition to the code for primary procedure). 11/26/2020 12:00:00 AM EDT MEDEN T ([facility]) 06335 Nerve conduction studies 7-8 studies NEW 201211/26/2020 12:00:00 AM EDT [facility]ENT ([facility]) OFFICE OUTPATIENT VISIT 25 MINUTES 11/26/2020 12:00:00 AM EDT [facility] ([facility]) OFFICE OUTPATIENT VISIT 25 MINUTES 11/12/2020 12:00:00 AM EDT [facility] ([facility]) OFFICE OUTPATIENT NEW 45 MINUTES 09/30/2020 12:00:00 A M EDT [facility] ([facility]) RADEX SPINE LUMBOSACRAL MINIMUM 4 VIEWS 09/09/2020 12: 00:00 AM EDT [facility] ([facility]) OFFICE OUTPATIENT NEW 45 MINUTES 09/09/2020 12:00:00 A M EDT [facility] ([facility]) Results ID Date Data Source [id number] 03/12/2021 11:20:00 AM EDT [facility] Name Value Range Interpretation Code Description Data Chelo rce(s) Supporting Document(s) SARS-CoV-2 (COVID-19) RNA [Presence] in Respiratory specimen by MADALYN with probe detection Not Detected [facility] This lab was ordered by [facility] and reported by [facility] ID Date Data Source [id number] 02/12/2021 09:00:00 AM EDT [facility] Name Value Range Interpretation Code Description Data Chelo rce(s) Supporting Document(s) SARS-CoV-2 (COVID-19) RNA [Presence] in Respiratory specimen by MADALYN with probe detection Not Detected [facility] This lab was ordered by [facility] and reported by [facility] ID Date Data Source [id number] 01/20/2021 11:14:00 AM EDT [facility] Hematopathology Report See Addendum Alana Carlos: KELL MARTINEZMRN: [id number] Number: [id number] Date: 01/15/2021 00:00Received Date: 01/16/2021 13:46Physician(s): DUGLAS DEAN MD VYAS, SHIKHAR G,MDCopy To:[facility]) ReceivedA: Bone Marrow, Flow Cytometry; RECEIVED 1 GREEN TOP BM, 2 ASP AND 1 PBSMEARS (1 EXTRA EDTA BM SENT TO MOLECULAR)Clinical HistoryLeukopenia and anemia.TEST REQUESTED/PERFORMED: Flow cytometry analysis DiagnosisFlow cytometry of bone marrow: Normal lymphoid subsets with noimmunophenotypic evidence of leukemia or non-Hodgkin lymphoma. Finaldiagnosis deferred to full bone marrow studies. Cytogenetic studies arepending. Dereje Jerez M.D.;Resident PathologistElectronically Signed By Yoli Harding MD AttendingPathologist 01/20/2021 11:14:57The attending pathologist named above attests that he/she has personallyreviewed the relevant preparation(s) for the specimen(s) and rendered thefinal diagnosis. 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 These findings are favored to be age-related. Thediagnosis remains unchanged. Addendum Electronically Signed By: Yoli Harding MD 01/28/2021 12:14 ProceduresFlow Cytometry Date Ordered:01/16/2021 Status: Signed Out01/21/2021 InterpretationPERIPHERAL BLOOD: CBC performed at [address] [address] on 01/15/21WBC *3.0 K/uLRBC *3.26 M/uLHgb *11.3 g/dLHct *31.4 %MCV *96.3 fLMCH *34.7 pgMCHC 36.0 g/dLRDW 12.5 %Platelets 206 K/ulDifferential Count (100 cells):55 % Neutrophils 5 % Ywrigzuvmun19 % Iszuzextjhk63 % Monocyt es-------100 % A peripheral blood film is reviewed. BONE MARROW ASPIRATE: Differential Count (100 cells):24 % Erythroid PrecursorsRare % Blasts 1 % Promyelocytes 5 % N. Sbxmvfwmru45 % N. Metamyelocytes and Band Forms42 % Neutrophils 3 % Eosinophils and Precursors 8 % Lymphocytes 2 % Plasma Cells --------100 % Lymphoid Panel: Juan Castorena [id number] following markers were assayed: CD45 (gate), CD2, CD3, CD4, CD5, CD7,CD8, CD10, CD11c, CD19, CD20, CD22, CD23, CD25, CD33, CD34, CD38, CD56,CD57, CD64, CD103, CD117, CD123, HLA-DR, [place], Lambda, and FMC7.# events: [id number]: 94%Flow Cytometry Differential (CD45/SSC)Lymphocyte [place]: 11%CD45 dim [place]: 2%Monocyte [place]: 6%Granulocyte [place]: 63%Nucleated/Erythroid [place]: 10%The lymphocyte gate showsB-cells (CD19): 14%T-cells (CD3): 73%NK-cells (CD3-/CD56+): 9%[place]/Lambda Ratio: 0.5CD4/CD8 Ratio: 2.3Results: (expressed as % of lymphocyte gate)B-cell markers: [place] = 4, Lambda = 8, CD19 = 14, CD20 = 15, CD22 = 14,CD19/10 = 0, CD19/CD5 = 6, CD19/CD23 = 4, FMC7 = 14, CD38/CD20 = 7Light chain as % of B- Cells: CD19/[place] = 31, CD19/Lambda = 54CD19/CD5/[place] = 0, CD19/CD5/Lambda = 4CD19/CD10/[place] = 1, CD19/CD10/Lambda = 2CD38 on CD19/5 positive cells: 22%T- cell Markers: CD2 = 79, CD3 = 73, CD3/CD4 = 48, CD3/CD8 = 21, CD5 = 78,CD7 = 78, CD3/57 = 14NK-cell Markers: CD56 = 13, CD57 = 15Other Markers: CD25 = 34, CD103 = 7, CD11c = 18, CD103/CD11c = 2, CD103/25= 3, CD103/22 = 0 CD10 = 1, CD38 = 41Results: (expressed as % of CD45 dim gate)B-cell markers: [place] = 4, Lambda = 4, CD19 = 7, CD20 = 10, CD22 = 9,CD19/10 = 6, CD19/CD5 = 1, CD19/CD23 = 3, FMC7 = 8, CD38/CD20 = 8Light chain as % of B-Cells: CD19/[place] = 0, CD19/Lambda = 15CD19/CD10/[place] = 12, CD19/CD10/Lambda = 8T-cell Markers: CD2 = 19, CD3 = 3, CD3/CD4 = 4, CD3/CD8 = 4, CD5 = 4, CD7= 18, CD3/57 = 1NK-cell Markers: CD56 = 9, CD57 = 2Basophil Markers: CD123 (HLA-DR-) = 11Other Markers: CD10 = 18, CD38 = 85, CD33 =76, CD34 = 47, CD117 = 31,CD123 = 44, HLA-DR = 62, CD25 = 8, CD103 = 3, CD11c = 53, CD103/11c =3,CD103/22 =1 , CD103/25 = 1 Results- CommentsLymphocytes consist predominantly of T cells with normal expression of panT-cell markers and normal CD4/CD8 ratio, normal proportions of NK andcytotoxic T cells, and polyclonal B cells.CD34+ blasts comprise fewer than 1% of cells studied. Blasts, monocytes,and granulocytes show no definitive immunophenotypic aberrancies.Procedure Electronically Signed By:Yoli Harding MD01/21/2021mendments for Flow Cytometry (01/16/2021)Amended: 01/21/2021 by Radha Perez: Typographical Error See Bone Marrow Aspirate Differential Count. Corrections arehighlighted.Previous Signout Date: 01/20/2021 This report may include one or more immunohistochemical stain/fluorochromeconjugated monoclonal antibody results that use analyte specific reagents.All positive and negative controls have been reviewed by the attendingpathologist and are satisfactory. The tests were developed and theirpe rformance characteristics determined by [facility] Pathology department.They have not been cleared or approved by the [place] Food and DrugAdministration. The FDA has determined that such clearance or approval isnot necessary. 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 Fourteen cells showed a normalmale chromosome complement.It cannot be definitively determined whether the Y chromosome lossidentified in this patient is disease- related or is age-related. Ychromosome loss frequency increases with age in males; however it is alsofound in various hematological disorders. If fewer than approximately 75%of metaphase cells show Y, a disease association is uncertain. Pleasecorrelate with concurrent Hematopathology report, [id number]. Electroni maren Signed By Terry Abreu, PhD Attending Pathologist 01/24/2021 15:16:04Gross DescriptionChromosome Beyqqyzs03,X,-Y[6]/46,XY[14] Test DataSpecimen Processed: Bone Marrow Chromosome Analysis:Metaphases Counted Metaphases Analyzed Metaphases Karyotyped BandingTechnique Band Resolution Culture 20 20 4 GTL 350-400 24 HR unstimulatedDisclaimer: Conventional chromosome analysis may not detect submicroscopicchromosome aberrations or low level mosaicism. Name Value Range Interpretation Code Description Data Chelo rce(s) Supporting Document(s) ID Date Data Source [id number] 11/28/2020 02:01:00 PM EDT [facility] ([facility]) Name Value Range Interpretation Code Description Data Chelo rce(s) Supporting Document(s) Erythrocyte sedimentation rate by Westergren method 36 mm/hr 0-20 [facility] ([facility]) C reactive protein [Mass/volume] in Serum or Plasma by High sensitivity method Laboratory test result 0.00-0.30 [facility] ([facility]) Bacteria identified in Blood by Culture Laboratory test result [facility] ([facility]) No growth after 72 hours . All specimens observed for 5 days. Results final at that time. No growth after 48 hours . All specimens observed for 5 days. Results final at that time. No growth after 24 hours . All specimens observed for 5 days. Results final at that time. NO GROWTH AFTER 5 DAYS ID Date Data Source QUANTIFERON TB GOLD TEST 11/28/2020 12:00:00 AM EDT eCW1 ([facility]) Name Value Range Interpretation Code Description Data Chelo rce(s) Supporting Document(s) QUANTIFERON TB GOLD TEST eCW1 ([facility]) ID Date Data Source LYME DISEASE SCRN WITH CONFIRM 11/28/2020 12:00:00 AM EDT eC W1 ([facility]) Name Value Range Interpretation Code Description Data Chelo rce(s) Supporting Document(s) <0.91 0.00-0.90 Lyme Disease IgG/IgM Anti yazan eCW1 ([facility]) <0.80 0.00-0.79 Lyme Disease IgM Ab Quant itati eCW1 ([facility]) ID Date Data Source [id number] 11/28/2020 12:00:00 AM EDT eCW1 ([facility]) Name Value Range Interpretation Code Description Data Chelo rce(s) Supporting Document(s) 331 VITAMIN B12 LEVEL eCW1 ([facility]) 9.5 FOLATE eCW1 ([facility]) ID Date Data Source TOTAL IRON BINDING CAPACIT 11/28/2020 12:00:00 AM EDT eCW1 ( [facility]) Name Value Range Interpretation Code Description Data Chelo rce(s) Supporting Document(s) 106 65-175 IRON (FE) eCW1 ([facility]) 39.3 19.7-50.0 PERCENT SATURATION eCW1 ([facility]) 270 250-450 TOTAL IRON BINDING CAPACI TY eCW1 ([facility]) ID Date Data Source ERYTHROCYTE SEDIMENTATION RATE 11/28/2020 12:00:00 AM EDT eC W1 ([facility]) Name Value Range Interpretation Code Description Data Chelo rce(s) Supporting Document(s) 38 0-20 ERYTHROCYTE SEDIMENTATION RATE eCW1 ([facility]) ID Date Data Source C REACTIVE PROTEIN QUANTITATIV (At [facility]) 11/28/2020 12:00 :00 AM EDT eCW1 ([facility]) Name Value Range Interpretation Code Description Data Chelo rce(s) Supporting Document(s) 0.30 0.00-0.30 C REACTIVE PROTEIN QUANTI TATIV eCW1 ([facility]) ID Date Data Source Comprehensive Metabolic Profile (CMP) 11/28/2020 12:00:00 AM EDT eCW1 ([facility]) Name Value Range Interpretation Code Description Data Chelo rce(s) Supporting Document(s) 65 70-100 GLUCOSE, FASTING eCW1 ([facility]) 12 7-18 BLOOD UREA NITROGEN eCW1 ([facility]) 0.82 0.70-1.30 CREATININE FOR GFR eCW1 ([facility]) > 60.0 >49 GLOMERULAR FILTRATION RATE eCW 1 ([facility]) 4.7 3.5-5.1 POTASSIUM SERUM eCW1 ([facility]) 133 136-145 SODIUM LEVEL eCW1 ([facility]) 94 98-107 CHLORIDE LEVEL eCW1 ([facility]) 31 21-32 CARBON DIOXIDE LEVEL eCW1 ([facility]) 9.0 8.8-10.2 CALCIUM LEVEL eCW1 ([facility]) 64 7-37 AST/SGOT eCW1 ([facility]) 104 45-117 ALKALINE PHOSPHATASE eCW1 ([facility]) 33 12-78 ALT/SGPT eCW1 ([facility]) 0.3 0.2-1.0 BILIRUBIN,TOTAL eCW1 ([facility]) 7.1 6.4-8.2 TOTAL PROTEIN eCW1 ([facility]) 3.2 3.2-5.2 ALBUMIN eCW1 ([facility]) 0.8 ALBUMIN/GLOBULIN RATIO eCW1 ([facility]) ID Date Data Source CBC with Differential 11/28/2020 12:00:00 AM EDT eCW1 ([facility]) Name Value Range Interpretation Code Description Data Chelo rce(s) Supporting Document(s) 3.51 4.30-6.10 RED BLOOD COUNT eCW1 ([facility]) 3.5 4.0-10.0 WHITE BLOOD COUNT eCW1 ([facility]) 95.7 80.0-96.0 MEAN CORPUSCULAR VOLUME e CW1 ([facility]) 33.3 27.0-33.0 MEAN CORPUSCULAR HEMOGLOB IN eCW1 ([facility]) 33.6 42.0-52.0 HEMATOCRIT eCW1 ([facility]) 11.7 13.5-17.5 HEMOGLOBIN eCW1 ([facility]) 12.9 11.5-14.5 RED CELL DISTRIBUTION WID TH eCW1 ([facility]) 34.8 32.0-36.5 MEAN CORPUSCULAR HGB CONC eCW1 ([facility]) 194 150-450 PLATELET COUNT, AUTOMATED eCW1 ([facility]) 11.4 24.0-44.0 LYMPH % eCW1 ([facility]) 19.7 2.0-8.0 MONO % eCW1 ([facility]) 65.4 36.0-66.0 NEUTROPHILS % eCW1 ([facility]) 2.3 1.5-8.5 NEUTROPHILS # eCW1 ([facility]) 0.6 0.0-1.0 BASO % eCW1 ([facility]) 0.4 1.5-5.0 LYMPH # eCW1 ([facility]) 2.9 0.0-3.0 EOS % eCW1 ([facility]) 0.1 0.0-0.5 EOS # eCW1 ([facility]) 0.0 0.0-0.2 BASO # eCW1 ([facility]) 0.7 0.0-0.8 MONO # eCW1 ([facility]) ID Date Data Source [id number] 11/15/2020 01:22:00 PM EDT [facility] ([facility]) Name Value Range Interpretation Code Description Data Chelo rce(s) Supporting Document(s) Rheumatoid factor [Units/volume] in Serum or Plasma Laboratory test result [facility] ([facility]) ID Date Data Source [id number] 11/15/2020 01:22:00 PM EDT [facility] ([facility]) Name Value Range Interpretation Code Description Data Chelo rce(s) Supporting Document(s) Antinuclear Antibodies Direct Laboratory test result [facility] ([facility]) Performed at: RN - [facility] [place] [id number] Director Of Archives: So Ridley MD, Phone: [phone] ID Date Data Source [id number] 11/15/2020 01:22:00 PM EDT [facility] ([facility]) Name Value Range Interpretation Code Description Data Chelo rce(s) Supporting Document(s) Laboratory test finding (navigational concept) Laboratory test result [facility] ([facility]) Testing performed at reference lab . Rep ort copy to follow on a separate form. 12/19/20 REF LAB#:[id number] FUNGUS CULTURE [facility] No Yeast or Mold Isolated after 4 weeks. ID Date Data Source [id number] 11/15/2020 01:22:00 PM EDT [facility] ([facility]) Name Value Range Interpretation Code Description Data Chelo rce(s) Supporting Document(s) C reactive protein [Mass/volume] in Serum or Plasma by High sensitivity method 0.38 mg/dL 0.00-0.30 [facility] ([facility]) Erythrocyte sedimentation rate by Westergren method 48 mm/hr 0-20 [facility] ([facility]) ID Date Data Source [id number] 11/15/2020 01:22:00 PM EDT [facility] ([facility]) Name Value Range Interpretation Code Description Data Chelo rce(s) Supporting Document(s) Creatinine For GFR 0.68 mg/dL 0.70-1.30 [facility] ([facility]) Glomerular Filtration Rate Laboratory test result [facility] ([facility]) <content>Units are mL/min/1.73 m2</content>
<content></content>
<content>Chronic Kidney Disease Staging per NKF:</content>
<content></content>
<content>Stage I & II GFR >=60 Normal to Mildly Decreased</content>
<content>Stage III GFR 30- 59 Moderately Decreased</content>
<content>Stage IV GFR 15-29 Severely Decreased</content>
<content>Stage V GFR <15 Very Little GFR Left</content>
<content>ESRD GFR <15 on PROCESS EXCELLENCE MANAGER</content>
<content></content> ID Date Data Source [id number] 11/15/2020 01:22:00 PM EDT [facility]) Name Value Range Interpretation Code Description Data Chelo rce(s) Supporting Document(s) Urea nitrogen [Mass/volume] in Serum or Plasma 9 mg/dL 7-18 [facility] ([facility]) ID Date Data Source [id number] 09/27/2020 10:22:00 [place] [address] PHONE: [phone] FAX: [phone] Name .................. : JUAN CASTORENA Corby Acct Number.................. : [id number] ROOM. ................. : Number ................... : [id number] Stay type ............. : O/P Discharge Date......... ... : 09/24/20 Admit Date ......... : 09/24/20 Admit Phys .................... : FELIX DUNCAN Date of ....... : 1960 Family Phys ................... : NON STAFF Phone .................. : [phone] Age ................................ : 60 Film# .................. .:[id number] Sex ................................. : M Unsigned transcriptions are preliminary reports and do not represent a medical or legal document MRI LUMBAR SPINE W/O CONTRAST [id number] COMPLETE:09/24/20 14:57 [facility] [id number] Reason for Exam: LOW BACK PAIN MRI OF THE LUMBAR SPINE WITHOUT CONTRAST: TECHNIQUE: Multisequence, multiplanar MRI of the lumbar spine is obtained without the use of intravenous contrast. COMPARISON: None available. FINDINGS: The conus medullaris terminates at the T12-L1 intervertebral body level. The vertebral bodies are severely heterogeneous in echotexture and signal. Infiltrative disease is not excluded. There does appear to be acute edematous changes in L5, suggesting what may represent either traumatic or less likely infiltrative disease. Clinical correlation is advised as to the need for further evaluation, which could include either a bone scan or contrast examination. There is a grade 1 spondylolisthesis at L4-5. There is a small disc bulge at L3-4 with moderate ligamentous and facet hypertrophy yielding moderate bilateral neuroforaminal stenosis with mild canal stenosis. There is moderate bilateral lateral recess stenosis. There is moderate osteophyte disc complex at L4-5. There is severe ligamentous and facet hypertrophy and in conjunction with the aforementioned spondylolisthesis, this yields severe spinal canal and bilateral neuroforaminal stenosis. There is severe bilateral lateral recess stenosis. There is facet edema and this can be a further source of pain. There is mild osteophyte disc complex at L5-S1. There is mild to moderate ligamentous and moderate to severe facet hypertrophy yielding severe bilateral neuroforaminal stenosis, right greater than left. There is mild canal stenosis. There is moderate to severe bilateral lateral recess stenosis. There is left-sided facet edema and this agai n, can be a further source of pain. IMPRESSION: Page 1 of 2 [facility] [address] [place] [address] PHONE: [phone] FAX: [phone] Name .................. : JUAN Tavarez Acct Number.................. : [id number] ROOM. ................. : MR Number ................... : [id number] Stay type ............. : O/P Discharge Date......... ... : 09/24/20 Admit Date ......... : 09/24/20 Admit Phys .................... : FELIX DUNCAN Date of ....... : 1960 Family Phys ................... : NON STAFF Phone .................. : [phone] Age ................................ : 60 Film# .................. .:[id number] Sex ................................. : M Unsigned transcriptions are preliminary reports and do not represent a medical or legal document MRI LUMBAR SPINE W/O CONTRAST [id number] COMPLETE:09/24/20 14:57 [facility] [id number] Reason for Exam: LOW BACK PAIN Multilevel degenerative disc disease. Bony edema in the L5 vertebral body possibly related to infiltrative or traumatic disease. Consider follow up with bone scanning and/or contrast MRI, if clinically warranted. Other findings as above. Electronically Reviewed and Signed By Jesus Seals MD , 09/27/20 10:22, AML Transcribe Initials: KAREN , Transcribe Date: 09/24/20 21:17, Dictation Date: Copy for: FELIX Chun via fax Copy for: [address] [facility] REC Page 2 of 2 Name Value Range Interpretation Code Description Data Chelo rce(s) Supporting Document(s) Procedure Social History Code Duration Value Status Description Data Source(s ) Smoking 02/11/2021 12:00:00 AM EDT Current Smoker completed Curre nt Smoker eCW1 ([facility]) Smoking 02/11/2021 12:00:00 AM EDT Current Smoker completed Curre nt Smoker eCW1 ([facility]) Smoking 02/11/2021 12:00:00 AM EDT Current Smoker completed Curre nt Smoker eCW1 ([facility]) Smoking 11/28/2020 12:00:00 AM EDT Current Smoker completed Curre nt Smoker eCW1 ([facility]) Smoking 11/28/2020 12:00:00 AM EDT Current Smoker completed Curre nt Smoker eCW1 ([facility]) Smoking 11/28/2020 12:00:00 AM EDT Current Smoker completed Curre nt Smoker eCW1 ([facility]) Smoking 11/13/2020 12:00:00 AM EDT Current Smoker completed Curre nt Smoker eCW1 ([facility]) Smoking 09/15/2020 12:00:00 AM EDT Current Smoker completed Curre nt Smoker eCW1 ([facility]) Smoking 02/27/2020 12:00:00 AM EDT Current Smoker completed Curre nt Smoker eCW1 ([facility]) Smoking 02/27/2020 12:00:00 AM EDT Current Smoker completed Curre nt Smoker eCW1 ([facility]) Smoking 02/27/2020 12:00:00 AM EDT Current Smoker completed Curre nt Smoker eCW1 ([facility]) Smoking 02/27/2020 12:00:00 AM EDT Current Smoker completed Curre nt Smoker eCW1 ([facility]) Vital Signs ID Date Data Source UNK Name Value Range Interpretation Code Description Data Source(s) Body weight 154 [lb_av] 154 [lb_av] eCW1 ([facility]) Body mass index (BMI) [Ratio] 22.09 kg/m2 22.09 kg/m2 eCW1 ([facility]) Heart rate 64 /min 64 /min eCW1 ([facility]) Respiratory rate 18 /min 18 /min eCW1 ([facility]) Body temperature 97.9 [degF] 97.9 [degF] eCW1 ( [facility]) Systolic blood pressure 136 mm[Hg] 136 mm[Hg] e CW1 ([facility]) Diastolic blood pressure 72 mm[Hg] 72 mm[Hg] eCW1 ([facility]) Body weight 69.85 kg 69.85 kg eCW1 ([facility]) Body height [in_i] eCW1 ([facility]) Body weight 154 [lb_av] 154 [lb_av] eCW1 ([facility]) Body weight 69.85 kg 69.85 kg eCW1 ([facility]) Body height [in_i] eCW1 ([facility]) Body mass index (BMI) [Ratio] 22.09 kg/m2 22.09 kg/m2 eCW1 ([facility]) Heart rate 64 /min 64 /min eCW1 ([facility]) Respiratory rate 18 /min 18 /min eCW1 ([facility]) Body temperature 97.9 [degF] 97.9 [degF] eCW1 ( [facility]) Systolic blood pressure 136 mm[Hg] 136 mm[Hg] e CW1 ([facility]) Diastolic blood pressure 72 mm[Hg] 72 mm[Hg] eCW1 ([facility]) Body temperature 97.1 [degF] 97.1 [degF] [facility] ([facility]) Body temperature 98 [degF] 98 [degF] eCW1 ([facility]) Body weight 154 [lb_av] 154 [lb_av] eCW1 ([facility]) Body height [in_i] eCW1 ([facility]) Body mass index (BMI) [Ratio] 22.09 kg/m2 22.09 kg/m2 eCW1 ([facility]) Heart rate 103 /min 103 /min eCW1 ([facility]) Respiratory rate 18 /min 18 /min eCW1 ([facility]) Systolic blood pressure 160 mm[Hg] 160 mm[Hg] e CW1 ([facility]) Diastolic blood pressure 98 mm[Hg] 98 mm[Hg] eCW1 ([facility]) Body weight 150.2 [lb_av] 150.2 [lb_av] eCW1 ([facility]) Body height [in_i] eCW1 ([facility]) Heart rate 110 /min 110 /min eCW1 ([facility]) Respiratory rate 20 /min 20 /min eCW1 ([facility]) Body mass index (BMI) [Ratio] 21.55 kg/m2 21.55 kg/m2 eCW1 ([facility]) Body temperature 98.9 [degF] 98.9 [degF] eCW1 ( [facility]) Systolic blood pressure 150 mm[Hg] 150 mm[Hg] e CW1 ([facility]) Diastolic blood pressure 88 mm[Hg] 88 mm[Hg] eCW1 ([facility]) Body weight 157.0 [lb_av] 157.0 [lb_av] eCW1 ([facility]) Body height [in_i] eCW1 ([facility]) Body mass index (BMI) [Ratio] 22.52 kg/m2 22.52 kg/m2 eCW1 ([facility]) Heart rate 90 /min 90 /min eCW1 ([facility]) Respiratory rate 20 /min 20 /min eCW1 ([facility]) Body temperature 99.1 [degF] 99.1 [degF] eCW1 ( [facility]) Systolic blood pressure 146 mm[Hg] 146 mm[Hg] e CW1 ([facility]) Diastolic blood pressure 88 mm[Hg] 88 mm[Hg] eCW1 ([facility]) Body temperature 97.5 [degF] 97.5 [degF] [facility] ([facility]) Body height 68.5 [in_i] 68.5 [in_i] [facility] ([facility]) 5'8.50" Body weight 153.12 [lb_av] 153.12 [lb_av] MEDEN T ([facility]) Body mass index (BMI) [Ratio] 22.9 kg/m2 22.9 k g/m2 [facility] ([facility]) Heart rate 76 /min 76 /min eCW1 ([facility]) Diastolic blood pressure 70 mm[Hg] 70 mm[Hg] eCW1 ([facility]) Body weight 154 [lb_av] 154 [lb_av] eCW1 ([facility]) Body height [in_i] eCW1 ([facility]) Body mass index (BMI) [Ratio] 22.09 kg/m2 22.09 kg/m2 eCW1 ([facility]) Body temperature 99 [degF] 99 [degF] eCW1 ([facility]) Systolic blood pressure 120 mm[Hg] 120 mm[Hg] e CW1 ([facility]) Respiratory rate 20 /min 20 /min eCW1 ([facility])
[2021-03-17] MEDS ORDERED: ALBUTEROL SULFATE 2.5 MG/0.5 ML INH NEB SOLN INH ONE (09:50)
[2021-03-17] MEDS: CYCLOPENTOLATE 1% OPHTH SOLN 2 ML BTL OS SCH ×3 (09:57→10:01)
[2021-03-17] MEDS: FLURBIPROFEN 0.03% OPHTH SOLN 2.5 ML OS SCH ×3 (09:57→10:01)
[2021-03-17] MEDS: PHENYLEPHRINE 2.5% OPHTH SOL 2ML OS SCH ×3 (09:57→10:01)
[2021-03-17] MEDS: TETRACAINE 0.5% OPHTH SOLN 4ML OS SCH ×2 (09:58→10:01)
[2021-03-17 11:50] VITALS: BP 127/67
--- NOTE | 2021-03-21 09:06 | RO ---
DATE OF SURGERY: 03/17/2021 PREOPERATIVE DIAGNOSIS: Senile cataract left eye. POSTOPERATIVE DIAGNOSIS: Senile cataract left eye. PROCEDURE: Phacoemulsification with posterior chamber intraocular lens implant left eye. SURGEON: Alex Gu Jr., DO [employer] BUSINESS ANALYST: ANESTHESIA: IV sedation. DESCRIPTION OF PROCEDURE: The patient was brought into the operating room and given monitored anesthesia by the department of anesthesia by IV route. The patient was then given a standard prep by using betadine solution. One drop of tetracaine was placed in the eye prior to the prep. The patient was then draped in the usual manner. Lid speculum was placed in the eye. The eye was grasped with 0.12 forceps for better exposure of the cornea. A 15-degree stab blade was made at 4-oclock position. 0.3 mL of 1% lidocaine in a syringe attached to a cannula was inserted into the anterior chamber through the port site. Viscoelastic was inserted into the anterior chamber through the port site. A 2.75 mm clear cornea keratome blade was then used to make a clear corneal wound at 3-oclock position. A cystotome was used to start a continuous tear capsulorrhexis, which was completed with Utrata forceps. Balanced salt solution (BSS) in a syringe attached to a cannula was then used to hydrodissect the lens nucleus. Phacoemulsification was then used to remove the lens nucleus using a divide and conquer-type technique. After this was completed, irrigation and aspiration apparatus was brought into the anterior chamber and the remaining cortical material was removed. ProVisc was inserted into the capsular bag. We then inserted a foldable lens, an Franko AcrySof one-piece lens. It was then dialed into place using a Chinedu pusher. Once the lens was in place, irrigation and aspiration was reinserted into the anterior chamber and the remaining ProVisc was removed. BSS was inserted through the port site, and then the port site was hydrated. The wound was checked. There was no need for sutures at this time. The patient then had the lid speculum removed. The shield was placed over the eye, and the patient was brought back to ambulatory surgery in stable condition. The patient tolerated the procedure well. Phacoemulsification time was 22.15 seconds. Besivance drops were placed in the eye in ambulatory surgery. SKIP
== END 2021-03-17 12:12 | disposition home or self-care (01) ==
LOC: M SDC 09:08
PROVIDERS: ATTEND Ophthalmology
DX: H25.12 Age-related nuclear cataract, left eye (principal); I10 Essential (primary) hypertension; D64.9 Anemia, unspecified; M19.90 Unspecified osteoarthritis, unspecified site; M54.2 Cervicalgia; F32.9 Major depressive disorder, single episode, unspecified; F17.210 Nicotine dependence, cigarettes, uncomplicated; Z79.899 Other long term (current) drug therapy
CPT/HCPCS: 66984; J2250; J3010

== ENCOUNTER → 2021-04-22 | Outpatient (REF) | payer OTHER, MEDICAID ==
[~2021-04-22] MED LIST changes: -DUOVISC (0.50ML VISCOAT/0.85ML PROVISC) OPHTH KIT As Ordered ONE; -LIDOCAINE 1% SDV 5ML VIAL As Ordered ONE; -LISI-898 PO; +LISI5TAB11 PO; -LR 1,000 ML IV SCH; -MIDAZOLAM INJ 2MG/2ML VIAL (J2250 PER 1MG) As Ordered ONE; -fentaNYL 100 MCG/2 ML INJECTION (J3010) As Ordered ONE
[2021-04-22 16:40] LABS: BASO % 0.6 % (0.0-1.0); EOS # 0.2 10^3/uL (0.0-0.5); EOS % 4.7 % (0.0-3.0); HEMATOCRIT 32.3 % (42.0-52.0); HEMOGLOBIN 11.4 g/dl (13.5-17.5); LYMPH # 0.7 10^3/uL (1.5-5.0); LYMPH % 18.2 % (24.0-44.0); MEAN CORPUSCULAR HEMOGLOBIN 34.2 pg (27.0-33.0); MEAN CORPUSCULAR HGB CONC 35.3 g/dl (32.0-36.5); MONO # 0.5 10^3/uL (0.0-0.8); MONO % 14.9 % (2.0-8.0); NEUTROPHILS # 2.2 10^3/uL (1.5-8.5); NEUTROPHILS % 60.8 % (36.0-66.0); PLATELET COUNT, AUTOMATED 268 10^3/uL (150-450); RED BLOOD COUNT 3.33 10^6/uL (4.30-6.10); WHITE BLOOD COUNT 3.6 10^3/uL (4.0-10.0)
[2021-04-22 17:04] LABS: ERYTHROCYTE SEDIMENTATION RATE 49 mm/hr (0-20)
[2021-04-22 17:05] LABS: BLOOD UREA NITROGEN 9 MG/DL (7-18); CREATININE FOR GFR 0.85 MG/DL (0.70-1.30); GLUCOSE, FASTING 74 MG/DL (70-100)
[2021-04-22 17:06] LABS: ALBUMIN 3.4 GM/DL (3.2-5.2); ALT/SGPT 28 U/L (12-78); BILIRUBIN,TOTAL 0.3 MG/DL (0.2-1.0); CALCIUM LEVEL 8.5 MG/DL (8.8-10.2); CARBON DIOXIDE LEVEL 28 MEQ/L (21-32); CHLORIDE LEVEL 93 MEQ/L (98-107); GLOMERULAR FILTRATION RATE > 60.0 (>49); POTASSIUM SERUM 4.8 MEQ/L (3.5-5.1); SODIUM LEVEL 128 MEQ/L (136-145); TOTAL PROTEIN 7.4 GM/DL (6.4-8.2)
[2021-05-01 18:07] LABS: CYCLIC CITRULLINATED PEPTIDE 5 units (0-19); HLA-B27 Negative (.)
== END ==
LOC: M SFHCRHEU 13:58
PROVIDERS: ATTEND Internal Medicine Rheumatology
DX: M54.41 Lumbago with sciatica, right side (principal)

== ENCOUNTER → 2021-04-29 | Outpatient (CLI) | payer OTHER, MEDICAID ==
[~2021-04-29] MED LIST changes: +LISI-898 PO; -LISI5TAB11 PO
--- NOTE | 2021-04-30 06:24 | REP ---
INDICATION: SMOKER COMPARISON: Contrast-enhanced chest CT dated 12/15/2016 TECHNIQUE: Axial noncontrast images from the thoracic inlet to the upper abdomen using low-dose lung screening technique (LDCT). FINDINGS: Lung thurston are relatively symmetric and well aerated. Mild emphysematous and chronic age-related interstitial changes are noted. No acute consolidation, suspicious nodule or mass. No effusion. No pneumothorax. Tracheobronchial tree is patent. Mediastinum is grossly normal. Atherosclerotic changes to the thoracic aorta and coronary arteries noted without aortic aneurysm or cardiomegaly. No pericardial effusion. IMPRESSION: Lung-RADS category 1. Management recommendations include annual low-dose CT surveillance. <Electronically signed by Олег Cardoza > 04/30/21 [id number]
== END ==
LOC: M RAD 14:31
PROVIDERS: ATTEND Internal Medicine Medical Oncology
DX: Z87.891 Personal history of nicotine dependence (principal)

== ENCOUNTER → 2022-01-15 | Outpatient (CLI) | payer OTHER, MEDICAID ==
[~2022-01-15] MED LIST changes: -LISI-898 PO; +LISI5TAB11 PO; +PROHANCE 279.3MG/ML 15ML VIAL ONE; +ROLLMIS8 XX
== END ==
LOC: M PLAIMG 09:56
PROVIDERS: ATTEND Internal Medicine Medical Oncology
DX: M48.061 Spinal stenosis, lumbar region without neurogenic claudication (principal); M43.16 Spondylolisthesis, lumbar region; M51.46 Schmorl's nodes, lumbar region; S32.010A Wedge compression fracture of first lumbar vertebra, initial encounter for closed fracture; D64.9 Anemia, unspecified
CPT/HCPCS: 72158; A9576

== ENCOUNTER 2022-01-27 19:05 | Observation (INO) | payer OTHER, MEDICAID ==
[~2022-01-27] VITALS: Ht 175.3 cm; Wt 71.2 kg
[~2022-01-27 19:05] MED LIST changes: -PROHANCE 279.3MG/ML 15ML VIAL ONE
[2022-01-27 20:56] LABS: BASO % 0.3 % (0.0-1.0); EOS # 0.1 10^3/uL (0.0-0.5); EOS % 1.9 % (0.0-3.0); HEMATOCRIT 28.7 % (42.0-52.0); HEMOGLOBIN 10.3 g/dl (13.5-17.5); LYMPH # 0.7 10^3/uL (1.5-5.0); LYMPH % 18.8 % (24.0-44.0); MEAN CORPUSCULAR HEMOGLOBIN 34.1 pg (27.0-33.0); MEAN CORPUSCULAR HGB CONC 35.9 g/dl (32.0-36.5); MONO # 0.7 10^3/uL (0.0-0.8); MONO % 18.8 % (2.0-8.0); NEUTROPHILS # 2.2 10^3/uL (1.5-8.5); NEUTROPHILS % 59.9 % (36.0-66.0); PLATELET COUNT, AUTOMATED 206 10^3/uL (150-450); RED BLOOD COUNT 3.02 10^6/uL (4.30-6.10); WHITE BLOOD COUNT 3.7 10^3/uL (4.0-10.0)
[2022-01-27 21:26] LABS: CREATININE,RANDOM URINE 16.1 MG/DL
[2022-01-27 21:33] LABS: ALBUMIN 3.3 GM/DL (3.2-5.2); ALT/SGPT 22 U/L (12-78); BILIRUBIN,DIRECT 0.1 MG/DL (0.0-0.2); BILIRUBIN,TOTAL 0.3 MG/DL (0.2-1.0); BLOOD UREA NITROGEN 11 MG/DL (7-18); CALCIUM LEVEL 8.7 MG/DL (8.8-10.2); CARBON DIOXIDE LEVEL 26 MEQ/L (21-32); CHLORIDE LEVEL 85 MEQ/L (98-107); CREATININE FOR GFR 0.79 MG/DL (0.70-1.30); GLOMERULAR FILTRATION RATE > 60.0 (>49); GLUCOSE, FASTING 81 MG/DL (70-100); LIPASE 189 U/L (73-393); NT-PRO BNP 636 PG/ML (<125); POTASSIUM SERUM 4.5 MEQ/L (3.5-5.1); SODIUM LEVEL 120 MEQ/L (136-145); TOTAL PROTEIN 7.4 GM/DL (6.4-8.2)
[2022-01-27 21:41] LABS: FREE T4 1.02 NG/DL (0.76-1.46); THYROID STIMULATING HORMONE 1.2 uIU/ML (0.358-3.740)
[2022-01-27] MEDS ORDERED: NS 1,000 ML IV SCH (21:50)
[2022-01-27] MEDS ORDERED: LORazepam 2 MG TAB PO PRN (23:05)
[2022-01-28] VITALS (8 sets, daily range): BP systolic 102–146; BP diastolic 61–81
[2022-01-28] MEDS ORDERED: MULTIVITAMIN -ADULT INJECTION 10 ML, THIAMINE INJection 100 MG, FOLIC ACID 1 MG in NS 1... IV ONE ×4
[2022-01-28 01:07] LABS: RSV AMPLIFICATION NEGATIVE (NEGATIVE)
[2022-01-28] MEDS ORDERED: AMLO1TAB24 PO (01:27)
[2022-01-28] MEDS ORDERED: MAGN400T33 PO (01:27)
[2022-01-28] MEDS ORDERED: LISI5TAB11 PO (01:27)
[2022-01-28] MEDS ORDERED: HOME MED LIST COMPLETE! XX SCH (01:30)
[2022-01-28 01:56] LABS: BLOOD UREA NITROGEN 12 MG/DL (7-18); CALCIUM LEVEL 8.7 MG/DL (8.8-10.2); CARBON DIOXIDE LEVEL 27 MEQ/L (21-32); CHLORIDE LEVEL 89 MEQ/L (98-107); CREATININE FOR GFR 0.77 MG/DL (0.70-1.30); GLOMERULAR FILTRATION RATE > 60.0 (>49); GLUCOSE, FASTING 95 MG/DL (70-100); SODIUM LEVEL 124 MEQ/L (136-145)
[2022-01-28] MEDS: LIDOCAINE 5% (LIDODERM) PATCH TD SCH (02:54)
[2022-01-28] MEDS ORDERED: IBUPROFEN 400MG TAB PO ONE (03:00)
[2022-01-28 06:26] LABS: HEMATOCRIT 28.3 % (42.0-52.0); MEAN CORPUSCULAR HEMOGLOBIN 34.2 pg (27.0-33.0); MEAN CORPUSCULAR HGB CONC 35.3 g/dl (32.0-36.5); MEAN CORPUSCULAR VOLUME 96.9 fl (80.0-96.0); PLATELET COUNT, AUTOMATED 217 10^3/uL (150-450); RED BLOOD COUNT 2.92 10^6/uL (4.30-6.10); WHITE BLOOD COUNT 2.9 10^3/uL (4.0-10.0)
[2022-01-28 07:01] LABS: BLOOD UREA NITROGEN 11 MG/DL (7-18); CARBON DIOXIDE LEVEL 29 MEQ/L (21-32); CHLORIDE LEVEL 93 MEQ/L (98-107); CREATININE FOR GFR 0.74 MG/DL (0.70-1.30); GLOMERULAR FILTRATION RATE > 60.0 (>49); GLUCOSE, FASTING 91 MG/DL (70-100); POTASSIUM SERUM 4.3 MEQ/L (3.5-5.1); SODIUM LEVEL 125 MEQ/L (136-145)
[2022-01-28] MEDS: NICOTINE 14 MG/24 HR TRANSDERMAL TD SCH (09:00)
[2022-01-28] MEDS: THIAMINE 100 MG TAB PO SCH ×2 (09:57→20:14)
[2022-01-28] MEDS: MULTIVITAMINS/MINERALS THERAP 1 TAB PO SCH (09:57)
[2022-01-28] MEDS: FOLIC ACID 1MG TAB PO SCH (09:57)
[2022-01-28] MEDS ORDERED: ACETAMINOPHEN TAB 650MG DOSE (2X325MG) PO PRN (14:30)
[2022-01-28 14:47] LABS: BLOOD UREA NITROGEN 10 MG/DL (7-18); CALCIUM LEVEL 9.2 MG/DL (8.8-10.2); CARBON DIOXIDE LEVEL 29 MEQ/L (21-32); CHLORIDE LEVEL 92 MEQ/L (98-107); CREATININE FOR GFR 0.84 MG/DL (0.70-1.30); GLOMERULAR FILTRATION RATE > 60.0 (>49); GLUCOSE, FASTING 98 MG/DL (70-100); POTASSIUM SERUM 3.9 MEQ/L (3.5-5.1); SODIUM LEVEL 127 MEQ/L (136-145)
[2022-01-28] MEDS ORDERED: **NOTE PATIENT COMMENT** MISC XX SCH (15:00)
[2022-01-28] MEDS ORDERED: ENOXAPARIN 40MG/0.4ML SYRINGE (J1650 PER 10MG) SC SCH (16:00)
[2022-01-28 16:06] LABS: INR 0.99; PROTHROMBIN TIME 13.5 SECONDS (12.7-14.5)
[2022-01-28 16:07] LABS: PARTIAL THROMBOPLASTIN TIME 35.4 SECONDS (25.9-37.0)
[2022-01-28 19:46] LABS: BLOOD UREA NITROGEN 15 MG/DL (7-18); CALCIUM LEVEL 8.7 MG/DL (8.8-10.2); CARBON DIOXIDE LEVEL 29 MEQ/L (21-32); CHLORIDE LEVEL 96 MEQ/L (98-107); CREATININE FOR GFR 0.83 MG/DL (0.70-1.30); GLOMERULAR FILTRATION RATE > 60.0 (>49); GLUCOSE, FASTING 99 MG/DL (70-100); POTASSIUM SERUM 4.3 MEQ/L (3.5-5.1); SODIUM LEVEL 130 MEQ/L (136-145)
[2022-01-28 20:34] LABS: OSMOLALITY URINE 446 MOSM/KG (50-1400)
[2022-01-28] MEDS ORDERED: amLODIPine 5 MG TAB PO SCH (21:00)
[2022-01-28 21:02] LABS: SODIUM,RANDOM URINE 118 MEQ/L
[2022-01-29] MEDS ORDERED: IBUPROFEN 400MG TAB PO PRN (00:55)
[2022-01-29 05:05] VITALS: BP 158/81
[2022-01-29 06:41] LABS: HEMATOCRIT 28.7 % (42.0-52.0); HEMOGLOBIN 10.2 g/dl (13.5-17.5); MEAN CORPUSCULAR HEMOGLOBIN 34.2 pg (27.0-33.0); MEAN CORPUSCULAR HGB CONC 35.5 g/dl (32.0-36.5); MEAN CORPUSCULAR VOLUME 96.3 fl (80.0-96.0); PLATELET COUNT, AUTOMATED 219 10^3/uL (150-450); RED BLOOD COUNT 2.98 10^6/uL (4.30-6.10); WHITE BLOOD COUNT 3.4 10^3/uL (4.0-10.0)
[2022-01-29 07:38] LABS: ALBUMIN 3.1 GM/DL (3.2-5.2); ALT/SGPT 20 U/L (12-78); BILIRUBIN,TOTAL 0.4 MG/DL (0.2-1.0); BLOOD UREA NITROGEN 18 MG/DL (7-18); CALCIUM LEVEL 8.8 MG/DL (8.8-10.2); CARBON DIOXIDE LEVEL 28 MEQ/L (21-32); CHLORIDE LEVEL 94 MEQ/L (98-107); CREATININE FOR GFR 0.83 MG/DL (0.70-1.30); GLOMERULAR FILTRATION RATE > 60.0 (>49); GLUCOSE, FASTING 95 MG/DL (70-100); POTASSIUM SERUM 4.1 MEQ/L (3.5-5.1); SODIUM LEVEL 129 MEQ/L (136-145); TOTAL PROTEIN 6.8 GM/DL (6.4-8.2)
[2022-01-29] MEDS: MULTIVITAMINS/MINERALS THERAP 1 TAB PO SCH (08:44)
[2022-01-29] MEDS: LIDOCAINE 5% (LIDODERM) PATCH TD SCH (08:44)
[2022-01-29] MEDS: FOLIC ACID 1MG TAB PO SCH (08:44)
[2022-01-29] MEDS: THIAMINE 100 MG TAB PO SCH (08:44)
[2022-01-29] MEDS: NICOTINE 14 MG/24 HR TRANSDERMAL TD SCH (08:50)
[2022-01-29] MEDS ORDERED: COSYNTROPIN 0.25 MG/ML VIAL (J0834 PER 0.25MG) IV ONE (10:05)
[2022-01-29 10:34] LABS: CORTISOL AM 5.2 UG/DL (4.3-22.4)
[2022-01-29] MEDS ORDERED: AMLO1TAB24 PO (13:57)
[2022-01-29] MEDS ORDERED: VITMTA PO (13:57)
[2022-01-29 14:00] VITALS: BP 149/81
== END 2022-01-29 17:30 | disposition home or self-care (01) ==
LOC: M ED 19:05 → M ED INP 23:04 → CANRESERV 01-28 00:35 → ENRESERV 01-28 00:35 → M MSPAV 01-28 01:34
PROVIDERS: ADMIT Internal Medicine; ATTEND Internal Medicine
DX: E87.1 Hypo-osmolality and hyponatremia (principal); I10 Essential (primary) hypertension; E83.42 Hypomagnesemia; F10.10 Alcohol abuse, uncomplicated; F17.210 Nicotine dependence, cigarettes, uncomplicated; M54.9 Dorsalgia, unspecified; G89.29 Other chronic pain; J44.9 Chronic obstructive pulmonary disease, unspecified; D64.9 Anemia, unspecified; M19.90 Unspecified osteoarthritis, unspecified site; Z79.899 Other long term (current) drug therapy
CPT/HCPCS: 36415; 71045; 80048; 80053; 80076; 80400; 82533; 82570; 83690; 83735; 83880; 83930; 83935; 84300; 84439; 84443; 85025; 85027; 85610; 85730; 87631; 93005; 93041; 94760; 96374; 99285; J0834; J3411

== ENCOUNTER → 2022-02-10 | Outpatient (CLI) | payer OTHER, MEDICAID ==
[~2022-02-10] MED LIST changes: +MAGN400T33 PO; +VITMTA PO
[2022-02-10 19:19] LABS: ALBUMIN 3.3 GM/DL (3.2-5.2); ALT/SGPT 26 U/L (12-78); BILIRUBIN,TOTAL 0.4 MG/DL (0.2-1.0); BLOOD UREA NITROGEN 8 MG/DL (7-18); CALCIUM LEVEL 8.8 MG/DL (8.8-10.2); CARBON DIOXIDE LEVEL 27 MEQ/L (21-32); CHLORIDE LEVEL 87 MEQ/L (98-107); CREATININE FOR GFR 0.72 MG/DL (0.70-1.30); GLOMERULAR FILTRATION RATE > 60.0 (>49); GLUCOSE, FASTING 81 MG/DL (70-100); POTASSIUM SERUM 4.3 MEQ/L (3.5-5.1); SODIUM LEVEL 122 MEQ/L (136-145); TOTAL PROTEIN 7.2 GM/DL (6.4-8.2)
== END ==
LOC: M PLALAB 15:57
PROVIDERS: ATTEND Nurse Practitioner Adult Health
DX: E87.1 Hypo-osmolality and hyponatremia (principal); I10 Essential (primary) hypertension; F10.10 Alcohol abuse, uncomplicated

== ENCOUNTER → 2022-02-10 | Outpatient (CLI) | payer OTHER, MEDICAID | LOC: M WHC 10:11 | PROVIDERS: ATTEND Nurse Practitioner | DX: M81.0 Age-related osteoporosis without current pathological fracture (principal) ==

== ENCOUNTER → 2022-06-11 | Outpatient (CLI) | payer OTHER, MEDICAID | LOC: M RAD 15:57 | PROVIDERS: ATTEND Internal Medicine Medical Oncology | DX: Z87.891 Personal history of nicotine dependence (principal) ==

== ENCOUNTER → 2024-03-10 | Outpatient (CLI) | payer OTHER, MEDICARE ==
[~2024-03-10] MED LIST changes: +DOXY-441 PO; -DOXY-443 PO
== END ==
LOC: M WHC 14:32
PROVIDERS: ATTEND Internal Medicine Medical Oncology
DX: D64.9 Anemia, unspecified (principal)

== ENCOUNTER → 2024-08-24 | Outpatient (CLI) | payer OTHER, MEDICARE | LOC: M RAD 13:41 | PROVIDERS: ATTEND Internal Medicine Medical Oncology | DX: Z87.891 Personal history of nicotine dependence (principal) ==

== ENCOUNTER 2024-11-27 20:58 | Emergency (ER) | payer OTHER, MEDICARE ==
[~2024-11-27] VITALS: Ht 172.7 cm; Wt 80.0 kg
[2024-11-27 21:10] VITALS: BP 195/87; TEMP 97.1; O2SAT 98
== END 2024-11-27 21:46 | disposition left against medical advice (07) ==
LOC: M ED 20:58
DX: Z53.21 Procedure and treatment not carried out due to patient leaving prior to being seen by health care provider (principal)

== ENCOUNTER → 2024-11-30 | Outpatient (CLI) | payer OTHER, MEDICARE ==
[2024-11-30 16:35] LABS: PLATELET COUNT, AUTOMATED 335 10^3/uL (150-450)
[2024-11-30 16:37] LABS: ETHYL ALCOHOL (ETHANOL) < 0.003 % (0.000-0.010)
[2024-11-30 16:39] LABS: ALT/SGPT 21 U/L (7.0-40); AST/SGOT 39 U/L (<34); CALCIUM LEVEL 8.6 MG/DL (8.3-10.6); CARBON DIOXIDE LEVEL 28 MMOL/L (20-31); CHLORIDE LEVEL 92 MMOL/L (98-107); CREATININE FOR GFR 1.23 MG/DL (0.70-1.30); GLOMERULAR FILTRATION RATE 64.8 (>49); POTASSIUM SERUM 4.0 MMOL/L (3.5-5.1); SODIUM LEVEL 130 MMOL/L (136-145)
[2024-11-30 16:41] LABS: VITAMIN B12 LEVEL 573 PG/ML (211-911)
== END ==
LOC: M PLAIMG 12:38
PROVIDERS: ATTEND Family Medicine
DX: M16.0 Bilateral primary osteoarthritis of hip (principal)

== ENCOUNTER → 2025-02-10 | Outpatient (CLI) | payer OTHER, MEDICARE | LOC: M RAD 12:21 | PROVIDERS: ATTEND Pain Medicine Interventional Pain Medicine | DX: M48.061 Spinal stenosis, lumbar region without neurogenic claudication (principal); M25.551 Pain in right hip; M51.371 Other intervertebral disc degeneration, lumbosacral region with lower extremity pain only; M16.11 Unilateral primary osteoarthritis, right hip; M25.451 Effusion, right hip ==

== ENCOUNTER → 2025-04-12 | Outpatient (CLI) | payer OTHER ==
[~2025-04-12] MED LIST changes: +AMOX875T2 PO; +AZIT-12 PO; +FERR325T3 PO; +VITA500C24 PO
== END ==
LOC: M RAD 14:11
DX: R06.02 Shortness of breath (principal); D64.9 Anemia, unspecified; J90 Pleural effusion, not elsewhere classified; J44.9 Chronic obstructive pulmonary disease, unspecified

== ENCOUNTER → 2025-04-13 | Outpatient (CLI) | payer OTHER, MEDICARE | LOC: M RAD 10:54 | DX: D64.9 Anemia, unspecified (principal); R93.6 Abnormal findings on diagnostic imaging of limbs | CPT/HCPCS: 78306; A9503 ==

== ENCOUNTER 2025-04-26 19:02 | Inpatient (IN) | payer OTHER ==
[~2025-04-26] VITALS: Ht 175.3 cm; Wt 72.6 kg
[2025-04-26 20:18] LABS: BASO # 0.0 10^3/uL (0.0-0.2); BASO % 0.3 % (0.0-1.0); EOS # 0.2 10^3/uL (0.0-0.5); EOS % 3.6 % (0.0-3.0); LYMPH # 0.4 10^3/uL (1.5-5.0); LYMPH % 6.9 % (24.0-44.0); MONO # 0.9 10^3/uL (0.0-0.8); MONO % 14.3 % (2.0-8.0); NEUTROPHILS # 4.5 10^3/uL (1.5-8.5); NEUTROPHILS % 74.6 % (36.0-66.0); PLATELET COUNT, AUTOMATED 304 10^3/uL (150-450)
[2025-04-26 20:48] LABS: ALT/SGPT 13 U/L (7.0-40); AST/SGOT 37 U/L (<34); C REACTIVE PROTEIN QUANTITATIV 0.67 MG/DL (<1.0); CALCIUM LEVEL 8.1 MG/DL (8.3-10.6); CARBON DIOXIDE LEVEL 26 MMOL/L (20-31); CHLORIDE LEVEL 91 MMOL/L (98-107); CREATININE FOR GFR 0.77 MG/DL (0.70-1.30); GLOMERULAR FILTRATION RATE > 90.0 (>49); POTASSIUM SERUM 4.3 MMOL/L (3.5-5.1); SODIUM LEVEL 127 MMOL/L (136-145)
[2025-04-26] MEDS: IPRATROPIUM 0.5 MG/ALBUTEROL 2.5 MG INH SOL UD 3 ML NEB SCH (21:04)
[2025-04-26] MEDS ORDERED: ISOVUE-370 76% 100 ML VIAL As Ordered ONE (21:14)
[2025-04-26 21:25] LABS: ETHYL ALCOHOL (ETHANOL) < 0.003 % (0.000-0.010)
[2025-04-26 22:40] LABS: KETONE, URINE AUTO RFX TRACE mg/dL (NEGATIVE); LEUKOCYTE ESTERASE UR AUTO RFX NEGATIVE (NEGATIVE); NITRITE, URINE AUTO RFX NEGATIVE (NEGATIVE); RBC, URINE AUTO RFX 100 /HPF (0-3); SQUAM EPITHELIAL CELL UR AURFX 0 /HPF (0-6); WBC, URINE AUTO RFX 1 /HPF (0-3)
[2025-04-26] MEDS: FUROSEMIDE 20 MG/2 ML VIAL IV ONE (22:41)
[2025-04-26 23:24] LABS: TOTAL PROTEIN,RANDOM URINE 399.4 MG/DL (0.0-14.0)
[2025-04-27 01:54] LABS: MAGNESIUM LEVEL 2.0 MG/DL (1.8-2.4)
[2025-04-27] MEDS: THIAMINE 100 MG TAB PO SCH (02:20)
[2025-04-27] MEDS: FUROSEMIDE 20 MG/2 ML VIAL IV ONE (02:20)
[2025-04-27] MEDS: IPRATROPIUM 0.5 MG/ALBUTEROL 2.5 MG INH SOL UD 3 ML NEB SCH (05:47)
[2025-04-27 06:26] LABS: ALT/SGPT 12 U/L (7.0-40); AST/SGOT 34 U/L (<34); CALCIUM LEVEL 8.0 MG/DL (8.3-10.6); CARBON DIOXIDE LEVEL 30 MMOL/L (20-31); CHLORIDE LEVEL 91 MMOL/L (98-107); CREATININE FOR GFR 0.78 MG/DL (0.70-1.30); GLOMERULAR FILTRATION RATE > 90.0 (>49); PLATELET COUNT, AUTOMATED 275 10^3/uL (150-450); POTASSIUM SERUM 3.5 MMOL/L (3.5-5.1); SODIUM LEVEL 129 MMOL/L (136-145)
[2025-04-27] MEDS ORDERED: GABA-1172 PO (07:41)
[2025-04-27] MEDS ORDERED: B-1100TA2 PO (07:41)
[2025-04-27] MEDS ORDERED: HOME MED LIST COMPLETE! XX SCH (07:45)
[2025-04-27] MEDS: HEPARIN SOD 5000 UNITS/ML 1 ML VIAL/SYRINGE SC SCH (08:34)
[2025-04-27] MEDS: GABAPENTIN 300 MG CAP PO SCH (08:59)
[2025-04-27] MEDS: FUROSEMIDE 40 MG/4 ML VIAL IV SCH (08:59)
[2025-04-27] MEDS: ASCORBIC ACID 500 MG TAB PO SCH (08:59)
[2025-04-27] MEDS: FOLIC ACID 1 MG TAB PO SCH (08:59)
[2025-04-27] MEDS: MULTIVITAMINS/MINERALS THERAP 1 TAB PO SCH (08:59)
[2025-04-27] MEDS: FERROUS SULFATE 325 MG TAB PO SCH (08:59)
[2025-04-27] MEDS: POTASSIUM CHLORIDE 10MEQ SR TABLET PO SCH (23:38)
[2025-04-27] MEDS: ACETAMINOPHEN 500 MG TAB PO PRN (23:39)
[2025-04-27] MEDS: MAGNESIUM OXIDE 400 MG TAB PO SCH (23:40)
[2025-04-28] VITALS (15 sets, daily range): BP systolic 132–164; BP diastolic 67–81; TEMP 97.1–98.1; O2SAT 78–100
[2025-04-28] MEDS: IBUPROFEN 400 MG TAB PO PRN (04:03)
[2025-04-28] MEDS: LIDOCAINE 5% PATCH TD SCH (04:30)
[2025-04-28 06:43] LABS: CALCIUM LEVEL 8.1 MG/DL (8.3-10.6); CARBON DIOXIDE LEVEL 31 MMOL/L (20-31); CHLORIDE LEVEL 93 MMOL/L (98-107); CREATININE FOR GFR 0.89 MG/DL (0.70-1.30); GLOMERULAR FILTRATION RATE > 90.0 (>49); POTASSIUM SERUM 3.5 MMOL/L (3.5-5.1); SODIUM LEVEL 133 MMOL/L (136-145)
[2025-04-28 07:28] LABS: TOTAL PROTEIN 24 HOUR URINE 2538.7 MG/24HR (50-80); URINE TOTAL PROTEIN 62.3 MG/DL (0-14)
[2025-04-28 07:33] LABS: CREATININE 24 HOUR, URINE 990.2 MG/24HR (950-2500); CREATININE, URINE 24.3 MG/DL
[2025-04-28] MEDS ORDERED: LIDOCAINE 5% PATCH TD SCH (09:00)
[2025-04-28] MEDS ORDERED: POTASSIUM CHLORIDE 10MEQ SR TABLET PO ONE (09:00)
[2025-04-28 10:52] LABS: MAGNESIUM LEVEL 1.8 MG/DL (1.8-2.4)
[2025-04-28 14:02] LABS: FREE T4 1.27 NG/DL (0.89-1.76)
[2025-04-29] VITALS (31 sets, daily range): BP systolic 132–166; BP diastolic 58–76; TEMP 97.6–98.5; O2SAT 90–100
[2025-04-29 09:05] LABS: BASO # 0.0 10^3/uL (0.0-0.2); BASO % 0.5 % (0.0-1.0); EOS # 0.4 10^3/uL (0.0-0.5); EOS % 6.9 % (0.0-3.0); LYMPH # 0.9 10^3/uL (1.5-5.0); LYMPH % 14.1 % (24.0-44.0); MONO # 1.0 10^3/uL (0.0-0.8); MONO % 15.1 % (2.0-8.0); NEUTROPHILS # 4.0 10^3/uL (1.5-8.5); NEUTROPHILS % 63.1 % (36.0-66.0); PLATELET COUNT, AUTOMATED 332 10^3/uL (150-450)
[2025-04-29 09:31] LABS: CALCIUM LEVEL 8.4 MG/DL (8.3-10.6); CARBON DIOXIDE LEVEL 35.0 MMOL/L (20-31); CHLORIDE LEVEL 93.0 MMOL/L (98-107); CREATININE FOR GFR 1.03 MG/DL (0.70-1.30); GLOMERULAR FILTRATION RATE 80.1 (>49); MAGNESIUM LEVEL 1.9 MG/DL (1.8-2.4); POTASSIUM SERUM 4.1 MMOL/L (3.5-5.1); SODIUM LEVEL 133.0 MMOL/L (136-145)
[2025-04-29 11:05] LABS: ABG BASE EXCESS 7.3 (-2.0-2.0); ABG HCO3 31.4 MMOL/L (22.0-26.0); ABG O2 SATURATION 94.4 % (95.0-99.0); ABG PARTIAL PRESSURE CO2 42.4 mmHg (35.0-45.0); ABG PARTIAL PRESSURE O2 72.0 mmHg (75.0-100.0); ABG STANDARD HCO3 31.1 MMOL/L. (22.0-26.0); ABG TOTAL CO2 32.7 MMOL/L (23.0-31.0); ABG pH (ARTERIAL) 7.488 UNITS (7.350-7.450)
[2025-04-29 12:09] LABS: LDH LACTATE DEHYDROGENASE 159.0 U/L (120-246)
[2025-04-29 12:51] LABS: PH BODY FLUID 7.728 UNITS (NOT ESTABLISHED); SOURCE, BODY FLUID pH PLEURAL
[2025-04-29 13:01] LABS: APPEARANCE, BODY FLUID CLEAR (CLEAR); PLEURAL FL COLOR PALE YELLOW (COLORLESS); SOURCE, BODY FLUID PLEURAL
[2025-04-29] MEDS ORDERED: FUROSEMIDE 40 MG/4 ML VIAL IV SCH (15:20)
[2025-04-30] VITALS (24 sets, daily range): BP systolic 147–159; BP diastolic 70–82; TEMP 97.8–99.2; O2SAT 87–100
[2025-04-30 05:54] LABS: BASO # 0.0 10^3/uL (0.0-0.2); BASO % 0.6 % (0.0-1.0); EOS # 0.4 10^3/uL (0.0-0.5); EOS % 8.1 % (0.0-3.0); LYMPH # 0.9 10^3/uL (1.5-5.0); LYMPH % 17.9 % (24.0-44.0); MONO # 0.8 10^3/uL (0.0-0.8); MONO % 15.6 % (2.0-8.0); NEUTROPHILS # 2.8 10^3/uL (1.5-8.5); NEUTROPHILS % 57.6 % (36.0-66.0); PLATELET COUNT, AUTOMATED 310 10^3/uL (150-450)
[2025-04-30 06:27] LABS: ALT/SGPT 11.0 U/L (7.0-40); AST/SGOT 25.0 U/L (<34); CALCIUM LEVEL 8.4 MG/DL (8.3-10.6); CARBON DIOXIDE LEVEL 32.0 MMOL/L (20-31); CHLORIDE LEVEL 97.0 MMOL/L (98-107); CREATININE FOR GFR 1.11 MG/DL (0.70-1.30); GLOMERULAR FILTRATION RATE 73.2 (>49); MAGNESIUM LEVEL 1.9 MG/DL (1.8-2.4); POTASSIUM SERUM 4.6 MMOL/L (3.5-5.1); SODIUM LEVEL 135.0 MMOL/L (136-145)
[2025-04-30] MEDS: FUROSEMIDE 40 MG/4 ML VIAL IV SCH (09:00)
[2025-04-30] MEDS: MAGNESIUM OXIDE 400 MG TAB PO ONE (14:25)
[2025-04-30] MEDS ORDERED: PROHANCE 279.3MG/ML 15ML VIAL As Ordered ONE (18:27)
[2025-05-01] VITALS (16 sets, daily range): BP systolic 142–162; BP diastolic 62–88; TEMP 97.7–98.2; O2SAT 86–99
[2025-05-01 06:30] LABS: BASO # 0.0 10^3/uL (0.0-0.2); BASO % 0.5 % (0.0-1.0); EOS # 0.3 10^3/uL (0.0-0.5); EOS % 6.1 % (0.0-3.0); LYMPH # 0.8 10^3/uL (1.5-5.0); LYMPH % 18.3 % (24.0-44.0); MONO # 0.7 10^3/uL (0.0-0.8); MONO % 16.0 % (2.0-8.0); NEUTROPHILS # 2.6 10^3/uL (1.5-8.5); NEUTROPHILS % 58.9 % (36.0-66.0); PLATELET COUNT, AUTOMATED 336 10^3/uL (150-450)
[2025-05-01 06:39] LABS: ALT/SGPT 13 U/L (7.0-40); AST/SGOT 27 U/L (<34); CALCIUM LEVEL 8.9 MG/DL (8.3-10.6); CARBON DIOXIDE LEVEL 29 MMOL/L (20-31); CHLORIDE LEVEL 98 MMOL/L (98-107); CREATININE FOR GFR 1.15 MG/DL (0.70-1.30); GLOMERULAR FILTRATION RATE 70.2 (>49); MAGNESIUM LEVEL 2.2 MG/DL (1.8-2.4); POTASSIUM SERUM 5.3 MMOL/L (3.5-5.1); SODIUM LEVEL 134 MMOL/L (136-145)
[2025-05-01] MEDS: FUROSEMIDE 40 MG TAB PO SCH (09:05)
[2025-05-01 09:30] LABS: PSA SCREENING 1.37 NG/ML (< 4.00)
[2025-05-01 09:48] LABS: CA19-9 TUMOR MARKER,CARBOHYDRA 12.6 U/ML (<35.0)
[2025-05-01] MEDS: amLODIPine 5 MG TAB PO SCH (21:46)
[2025-05-02 03:36] VITALS: BP 141/82; TEMP 98.1; O2SAT 91
[2025-05-02 05:42] LABS: BASO # 0.0 10^3/uL (0.0-0.2); BASO % 1.0 % (0.0-1.0); EOS # 0.3 10^3/uL (0.0-0.5); EOS % 6.9 % (0.0-3.0); LYMPH # 0.7 10^3/uL (1.5-5.0); LYMPH % 19.0 % (24.0-44.0); MONO # 0.7 10^3/uL (0.0-0.8); MONO % 18.8 % (2.0-8.0); NEUTROPHILS # 2.1 10^3/uL (1.5-8.5); NEUTROPHILS % 54.0 % (36.0-66.0); PLATELET COUNT, AUTOMATED 298 10^3/uL (150-450)
[2025-05-02 06:10] LABS: ALT/SGPT 11.0 U/L (7.0-40); AST/SGOT 27.0 U/L (<34); CALCIUM LEVEL 8.5 MG/DL (8.3-10.6); CARBON DIOXIDE LEVEL 28.0 MMOL/L (20-31); CHLORIDE LEVEL 99.0 MMOL/L (98-107); CREATININE FOR GFR 1.08 MG/DL (0.70-1.30); GLOMERULAR FILTRATION RATE 75.7 (>49); MAGNESIUM LEVEL 2.1 MG/DL (1.8-2.4); POTASSIUM SERUM 4.4 MMOL/L (3.5-5.1); SODIUM LEVEL 135.0 MMOL/L (136-145)
[2025-05-02 07:44] VITALS: BP 152/82; TEMP 98.2; O2SAT 98
[2025-05-02] MEDS ORDERED: LIDOCAINE 5% PATCH TD SCH (09:00)
[2025-05-02 11:22] VITALS: BP 138/80; TEMP 97.2; O2SAT 95
[2025-05-02 12:07] VITALS: BP 169/79; TEMP 98; O2SAT 96
[2025-05-02] MEDS: amLODIPine 10 MG TAB PO SCH (14:22)
[2025-05-02] MEDS: TAMSULOSIN 0.4 MG CAP PO SCH (14:23)
[2025-05-02] MEDS: LIDOCAINE 2% 5 ML JELLY UROJET TOP ONE (15:19)
[2025-05-02 16:22] LABS: LYME TOTAL ANTIBODY CIA <= 0.90 Index (<=0.90)
[2025-05-02 16:34] VITALS: BP 150/70; TEMP 98.8; O2SAT 92
[2025-05-02 17:48] LABS: PROTEIN, TOTAL SO 7.0 g/dL (6.1-8.1)
[2025-05-02 20:18] VITALS: BP 125/61; TEMP 98.4; O2SAT 93
[2025-05-02] MEDS: LIDOCAINE 5% PATCH TD SCH (20:31)
[2025-05-03 04:25] VITALS: BP 120/63; TEMP 98.9; O2SAT 91
[2025-05-03 07:31] LABS: BASO # 0.0 10^3/uL (0.0-0.2); BASO % 1.0 % (0.0-1.0); EOS # 0.2 10^3/uL (0.0-0.5); EOS % 3.6 % (0.0-3.0); LYMPH # 0.7 10^3/uL (1.5-5.0); LYMPH % 16.2 % (24.0-44.0); MONO # 0.7 10^3/uL (0.0-0.8); MONO % 17.2 % (2.0-8.0); NEUTROPHILS # 2.6 10^3/uL (1.5-8.5); NEUTROPHILS % 62.0 % (36.0-66.0); PLATELET COUNT, AUTOMATED 327 10^3/uL (150-450)
[2025-05-03 08:05] LABS: ALT/SGPT 13.0 U/L (7.0-40); AST/SGOT 24.0 U/L (<34); CALCIUM LEVEL 8.5 MG/DL (8.3-10.6); CARBON DIOXIDE LEVEL 28.0 MMOL/L (20-31); CHLORIDE LEVEL 95.0 MMOL/L (98-107); CREATININE FOR GFR 1.12 MG/DL (0.70-1.30); GLOMERULAR FILTRATION RATE 72.5 (>49); MAGNESIUM LEVEL 2.1 MG/DL (1.8-2.4); POTASSIUM SERUM 4.1 MMOL/L (3.5-5.1); SODIUM LEVEL 130.0 MMOL/L (136-145)
[2025-05-03 08:47] LABS: ALBUMIN SO 3.3 g/dL (3.8-4.8); ALPHA 1 GLOBULINS SO 0.3 g/dL (0.2-0.3); ALPHA 2 GLOBULINS SO 1.0 g/dL (0.5-0.9); BETA 2 GLOBULIN SO 0.6 g/dL (0.2-0.5); BETA GLOBULIN SO 0.5 g/dL (0.4-0.6); GAMMA GLOBULINS SO 1.3 g/dL (0.8-1.7)
[2025-05-03] MEDS: LIDOCAINE 1% MDV 20 ML VIAL SC ONE (13:00)
[2025-05-03 19:36] VITALS: BP 129/67; TEMP 97.2; O2SAT 94
[2025-05-04 03:09] VITALS: BP 152/71; TEMP 98.2; O2SAT 93
[2025-05-04 07:54] LABS: BASO # 0.0 10^3/uL (0.0-0.2); BASO % 0.7 % (0.0-1.0); EOS # 0.1 10^3/uL (0.0-0.5); EOS % 2.7 % (0.0-3.0); LYMPH # 0.8 10^3/uL (1.5-5.0); LYMPH % 18.3 % (24.0-44.0); MONO # 0.8 10^3/uL (0.0-0.8); MONO % 18.8 % (2.0-8.0); NEUTROPHILS # 2.6 10^3/uL (1.5-8.5); NEUTROPHILS % 59.3 % (36.0-66.0); PLATELET COUNT, AUTOMATED 318 10^3/uL (150-450)
[2025-05-04 08:23] LABS: ALT/SGPT 11.0 U/L (7.0-40); AST/SGOT 24.0 U/L (<34); CALCIUM LEVEL 8.4 MG/DL (8.3-10.6); CARBON DIOXIDE LEVEL 27.0 MMOL/L (20-31); CHLORIDE LEVEL 99.0 MMOL/L (98-107); CREATININE FOR GFR 1.4 MG/DL (0.70-1.30); GLOMERULAR FILTRATION RATE 55.4 (>49); MAGNESIUM LEVEL 2.2 MG/DL (1.8-2.4); POTASSIUM SERUM 4.3 MMOL/L (3.5-5.1); SODIUM LEVEL 135.0 MMOL/L (136-145)
[2025-05-04 08:24] VITALS: BP 123/69
[2025-05-04] MEDS: NS (Normal Saline) 0.9% 1,000 ML IV SCH (11:23)
[2025-05-04 12:00] VITALS: BP 114/59; TEMP 98.2; O2SAT 93
[2025-05-04] MEDS ORDERED: TAMS1CAP17 PO (12:32)
[2025-05-04] MEDS ORDERED: AMLO1TAB24 PO (12:32)
[2025-05-04] MEDS ORDERED: APAP325T4 PO (12:32)
[2025-05-04] MEDS ORDERED: LIDO5CRE6 TOP (14:37)
== END 2025-05-04 18:52 | disposition home or self-care (01) | DRG 291 ==
LOC: M ED 19:02 → M ED INP 23:44 → M PCU 04-28 02:45 → M MSPAV 05-02 16:29
PROVIDERS: ADMIT Student in an Organized Health Care Education/Training Program; ATTEND Internal Medicine
PROC: B246ZZZ Ultrasonography of Right and Left Heart (ICD-10-PCS; principal; 2025-04-27)
PROC: 0W9B3ZZ Drainage of Left Pleural Cavity, Percutaneous Approach (ICD-10-PCS; 2025-04-29)
PROC: 009U3ZX Drainage of Spinal Canal, Percutaneous Approach, Diagnostic (ICD-10-PCS; 2025-05-03)
DX: I11.0 Hypertensive heart disease with heart failure (principal); I50.33 Acute on chronic diastolic (congestive) heart failure; J96.01 Acute respiratory failure with hypoxia; J90 Pleural effusion, not elsewhere classified; E87.1 Hypo-osmolality and hyponatremia; M84.48XA Pathological fracture, other site, initial encounter for fracture; E87.5 Hyperkalemia; E87.70 Fluid overload, unspecified; R09.02 Hypoxemia; F10.20 Alcohol dependence, uncomplicated; M54.50 Low back pain, unspecified; J44.9 Chronic obstructive pulmonary disease, unspecified; D63.8 Anemia in other chronic diseases classified elsewhere; D50.9 Iron deficiency anemia, unspecified; R29.6 Repeated falls; F32.A Depression, unspecified; M19.90 Unspecified osteoarthritis, unspecified site; Z87.891 Personal history of nicotine dependence; Z79.899 Other long term (current) drug therapy; Z89.011 Acquired absence of right thumb

== ENCOUNTER → 2025-05-08 | Outpatient (CLI) | payer OTHER, MEDICARE ==
[~2025-05-08] MED LIST changes: +APAP325T4 PO; +B-1100TA2 PO; +CARDIAC STRESS TEST RESCUE BOX 1 KIT EA XX ONE; +GABA-1172 PO; +LIDO5CRE6 TOP; +LIDOCAINE 1% MDV 20 ML VIAL SC SCH; +TAMS1CAP17 PO
[2025-05-08 12:24] VITALS: TEMP 99.4
[2025-05-08 12:43] LABS: BASO # 0.0 10^3/uL (0.0-0.2); BASO % 0.3 % (0.0-1.0); EOS # 0.5 10^3/uL (0.0-0.5); EOS % 9.0 % (0.0-3.0); LYMPH # 0.8 10^3/uL (1.5-5.0); LYMPH % 13.2 % (24.0-44.0); MONO # 1.1 10^3/uL (0.0-0.8); MONO % 18.1 % (2.0-8.0); NEUTROPHILS # 3.5 10^3/uL (1.5-8.5); NEUTROPHILS % 59.1 % (36.0-66.0); PLATELET COUNT, AUTOMATED 375 10^3/uL (150-450)
[2025-05-08 13:30] VITALS: BP 178/78; O2SAT 98
== END ==
LOC: M IRPRO 12:12
DX: D64.9 Anemia, unspecified (principal)